=== PATIENT | female | born 1970 | race Caucasian/White ===

== ENCOUNTER 2018-06-23 01:17 | Outpatient (CLI) | payer BC, SELFPAY ==
[2018-06-23] MEDS: Omnipaque 350 MG/ML 50 ML BTL IJ (11:45)
--- NOTE | 2018-06-23 13:28 | DI.RPTCT_ITS ---
SYMPTOM/DIAGNOSIS: ABD PAIN, R10.9, RLQ PAIN, SUPRAPUBIC PAIN CT ABDOMEN AND PELVIS: The study was carried out with intravenous injection of 125 cc Omnipaque 350 and oral ingestion of dilute barium. No significant abnormality involving the lung bases is identified. The liver is enlarged. No focal abnormality is identified. The gallbladder is nondistended. There is no evidence of cholelithiasis. There is no evidence of ductal dilatation. The pancreas and spleen are intact. The kidneys and adrenals are unremarkable. There is no evidence of bowel obstruction or inflammatory change. The appendix is normal. There is significant image deterioration in the lower pelvis due to a right hip prosthesis. The bladder is incompletely distended. No gross abnormality is apparent. The patient is status post hysterectomy. There is no evidence of free air or free fluid in the intraperitoneal space. There is no evidence of an aortic aneurysm. The bony structures are intact. SUMMARY: Hepatomegaly is demonstrated. There is no evidence of an acute abdomen.
[2018-06-23] MEDS: Omnipaque 350 MG/ML 100 ML BTL IJ (13:30)
== END 2018-06-23 01:18 ==
PROVIDERS: PCP Nurse Practitioner Family; Visit Provider Nurse Practitioner Family
DX: R10.31 Right lower quadrant pain (principal); R16.0 Hepatomegaly, not elsewhere classified
CPT/HCPCS: 74177; J3490; Q9967

== ENCOUNTER 2018-06-25 15:07 | Outpatient (REF) | payer BC, SELFPAY ==
[2018-06-29 12:10] LABS: HBs Antibody, Qual Negative; HBs Antibody, Quant <3.1 mIU/mL; Hepatitis B Core Antibody Negative (NEGAT); Hepatitis B surface Ag Negative (NEGAT); Hepatitis C Ab w Rflx HCV PCR Negative (NEGAT)
== END 2018-06-25 15:08 ==
LOC: NCHCN 15:07
PROVIDERS: PCP Nurse Practitioner Family; Visit Provider Nurse Practitioner
DX: R10.9 Unspecified abdominal pain (principal); R16.1 Splenomegaly, not elsewhere classified
CPT/HCPCS: 86704; 86706; 86803; 87340

== ENCOUNTER 2018-07-05 11:41 | Outpatient (REF) | payer BC, SELFPAY ==
[2018-07-05 22:16] LABS: Abs Immature Grans 0.05 k/cumm (0.0-0.09); Absolute Basophil Count 0.03 k/cumm (0.0-0.2); Absolute Eosinophil Count 0.27 k/cumm (0.0-0.7); Absolute Lymphocyte Count 2.43 k/cumm (1.2-3.4); Absolute Monocyte Count 0.46 k/cumm (0.11-0.7); Absolute Neutrophil Count 4.34 k/cumm (1.2-6.7); Basophils % 0.4; Eosinophils % 3.6; HCT 39.2 % (36.0-46.0); HGB 12.7 g/dL (12.0-15.5); Immature Grans % 0.7; Lymphocytes % 32.1; Mean Corp. HGB Concentration 32.4 g/dL (32.0-36.0); Mean Corpuscular Hemoglobin 28.6 pg (27.0-33.0); Mean Corpuscular Volume 88.3 fL (80-95); Mean Platelet Volume 12.2 fL (8.0-11.0); Monocytes % 6.1; Neutrophils % 57.1; Platelet Count 196 x1000/uL (130-400); RBC 4.44 m/cumm (4.00-5.20); RBC Distribution Width 16.4 % (11.7-14.6); White Blood Cell Count 7.58 k/cumm (4.4-10.8)
[2018-07-05 22:26] LABS: C-Reactive Protein 0.38 mg/dL (0.0-0.3); LDH 195 U/L (81-234); TSH (W/Ref FT4) 0.69 uIU/mL (0.358-3.74)
[2018-07-05 23:44] LABS: ESR 17 MM/HR (0-20)
[2018-07-07 12:30] LABS: Rheumatoid Factor <8 IU/mL (<12.5)
[2018-07-07 13:43] LABS: Albumin 59.5 % (55.8-66.1); Total Protein 6.9 g/dl (6.3-8.2)
[2018-07-07 14:08] LABS: ANA Interpretation Negative (NEGAT)
== END 2018-07-05 11:42 ==
LOC: NCHCN 11:41
PROVIDERS: PCP Nurse Practitioner Family; Visit Provider Nurse Practitioner
DX: R50.9 Fever, unspecified (principal); M25.50 Pain in unspecified joint; R42 Dizziness and giddiness; R51 Headache
CPT/HCPCS: 85652; 83615; 84165; 84443; 85025; 86038; 86140; 86431

== ENCOUNTER 2018-08-12 10:45 | Emergency (ER) | payer BC, SELFPAY ==
[2018-08-12 10:49] VITALS: BP 160/71; PULSE 96; RESP 18; TEMP 37.2; O2SAT 96
--- NOTE | 2018-08-12 13:27 | ED.GENADUL_ITS ---
Discharge Plan Disposition Patient Disposition: HOME Condition: Stable Discharge Details Chief Complaint: EarProblem Clinical Impression: Otitis media, Otitis externa Primary Care Provider: Ivanna Way ED Provider: Reanna Castillo Home Meds and New Rx's Prescriptions: New clindamycin HCl 150 mg capsule 450 mg PO TID 7 Days Qty: 63 RF: 0 ciprofloxacin-hydrocortisone [Cipro HC] 0.2-1 % drops,suspension 3 drp OT BID 7 Days Qty: 10 RF: 0 Continue clonidine HCl 0.1 MG tablet 0.1 mg PO DAILY RF: 0 omeprazole 20 MG capsule,delayed release(DR/EC) 20 mg PO DAILY RF: 0 fluticasone [Flonase Allergy Relief] 9.9 ML spray,suspension 9.9 ml NS DAILY RF: 0 PROVENTIL HFA 18 GM HFA.AER.AD 2 puff Inhalation Q4H PRN RF: 0 clonazepam 1 MG tablet 1 mg PO BID RF: 0 telmisartan [Micardis] 40 MG tablet 40 mg PO DAILY RF: 0 gabapentin 300 MG capsule 1,200 mg PO HS RF: 0 albuterol sulfate 8.5 GM HFA aerosol inhaler 2 puff Inhalation DAILY PRNRF: 0 aripiprazole [Abilify] 30 MG tablet 30 mg PO DAILY RF: 0 omeprazole 20 MG capsule,delayed release(DR/EC) 20 mg PO HS RF: 0 beclomethasone dipropionate [Qvar] 120 PUFF aerosol 1 puff Inhalation BID RF: 0 acetaminophen [Tylenol Arthritis Pain] 650 MG tablet extended release 1,300 mg PO TID RF: 0 baclofen 10 MG tablet 10 mg PO PRN PRNRF: 0 nystatin 15 GM cream 1 applic Topical BID PRN PRNRF: 0 furosemide 20 MG tablet 0.5 tab PO DAILY RF: 0 fenofibrate 160 MG tablet 160 mg PO DAILY RF: 0 fluticasone [Flovent HFA] 120 PUFF/INH HFA aerosol inhaler 2 puff Inhalation BID RF: 0 metformin 500 MG tablet extended release 24hr 500 mg PO DAILY RF: 0 nitroglycerin 0.4 MG tablet, sublingual 0.4 mg Sublingual Q5 MIN PRN X3 PRNQty: 1 RF: 0 atorvastatin 40 MG tablet 40 mg PO HS Qty: 30 RF: 0 naproxen 375 mg Tablet 1 tab PO BID RF: 0 Discharge Instructions Instructions: Otitis Externa (ED), Otitis Media (ED) Additional Instructions: Take the antibiotics as directed until finished. Alternate Tylenol and Motrin as needed and directed for pain. Follow-up with your scheduled appointment with ENT Dr. Boone next week. Return to the emergency department any worsening or new concerning symptoms. Discharge Data Discharge Date/Time-TO BE ENTERED AT DEPARTURE: 08/12/18 14:05 Discharge Physician: Reanna Castillo Medical Decision Making 48yo F w/ a h/o diabetes, hypertension, hyperlipidemia, anxiety who presents with left ear pain for 4 weeks. Has seen her PCP and dentist and not given a diagnosis and told she had normal x-rays and exam. She called her dentist office yesterday and was prescribed chlorhexidine mouthwash over the phone. She admits to pain within the ear and outside the ear. She denies known fever or difficulty swallowing or neck pain. Patient was seen here last year for similar left ear pain and was diagnosed with otitis externa. Due to her history of diabetes, there had been a concern for mastoiditis but the CT imaging was negative for this. Today patient is afebrile and appears nontoxic. She does appear uncomfortable. She states she cannot take narcotics due to nausea and vomiting. She states Tylenol and Motrin usually work well for her pain. Her left TM appears mildly dull, bulging, mildly erythematous and with a mild effusion. She also endorses itching in her left ear canal. There is some pain to palpation of the L tragus and when pulling on the L auricle. She has no tenderness palpation of her left mastoid. There is no submandibular swelling or lymphadenopathy. Normal R ear exam. I explained to patient that she may have an otitis media and externa. She states she had been on Augmentin 4 weeks ago for a breast abscess. Her chart notes an allergy to amoxicillin. Will start clindamycin p.o. and Cipro HC otic drops. Patient does have an appointment with ENT Dr. Boone in 1 week. She is instructed to keep this appointment for follow-up and return immediately to the emergency department with any worsening or new concerning symptoms. HPI General Mode of arrival: ambulatory . Date/Time Provider Initiated Documentation: 08/12/18 10:57 . Limitations to Documentation: no limitations . Information obtained by: patient . HPI Narrative: 48-year-old female with a history of diabetes, hypertension, hyperlipidemia, anxiety who presents with left ear pain for 4 weeks. She states the pain is mainly deep within the ear . Has seen her PCP and dentist and not given a diagnosis and told she had normal dental x-rays and exam. She called her dentist office yesterday and was prescribed chlorhexidine mouthwash over the phone. She admits to pain within the ear and outside the ear. She denies known fever or difficulty swallowing or neck pain. She states Tylenol and Motrin usually work for her pain but have not helped for this. She states he cannot take narcotics due to nausea. She states she was on Augmentin for a boil on her L breast a few weeks ago that she states is now resolved. Past medical history: Diabetes, hypertension, hyperlipidemia, kidney stones, ovarian mass, panic attacks Surgical history: , hip replacement, hysterectomy, tubal ligation, right wrist surgery, ovarian mass resection Social history: Smokes tobacco, denies alcohol or drugs Medications: See list Allergies: Oxycodone, amoxicillin, latex, prozac PCP: Ivanna Way Related Data Home Medications Medication Instructions Recorded Confirmed albuterol sulfate 2 puff INHALATION DAILY PRN 05/01/15 08/12/18 aripiprazole [Abilify] 30 mg PO DAILY 05/01/15 08/12/18 clonazepam 1 mg PO BID 05/01/15 08/12/18 gabapentin 1,200 mg PO HS 05/01/15 08/12/18 telmisartan [Micardis] 40 mg PO DAILY 05/01/15 08/12/18 omeprazole 20 mg PO HS 03/07/17 08/12/18 clonidine HCl 0.1 mg PO DAILY tab-cap 12/01/17 08/12/18 beclomethasone dipropionate [Qvar] 1 puff INHALATION BID 12/12/17 08/12/18 acetaminophen [Tylenol Arthritis 1,300 mg PO TID 05/21/18 08/12/18 Pain] baclofen 10 mg PO PRN PRN 05/21/18 08/12/18 fenofibrate 160 mg PO DAILY 05/21/18 08/12/18 fluticasone [Flovent HFA] 2 puff INHALATION BID 05/21/18 08/12/18 furosemide 0.5 tab PO DAILY 05/21/18 08/12/18 metformin 500 mg PO DAILY 05/21/18 08/12/18 nystatin 1 applic TOPICAL BID PRN PRN 05/21/18 08/12/18 atorvastatin 40 mg PO HS #30 tablet 05/22/18 08/12/18 nitroglycerin 0.4 mg SUBLINGUAL Q5 MIN PRN X3 05/22/18 08/12/18 PRN #1 tab.subl Proventil Hfa 2 puff INHALATION Q4H PRN inhaler 07/14/18 08/12/18 fluticasone [Flonase Allergy 9.9 ml NS DAILY 07/14/18 08/12/18 Relief] omeprazole 20 mg PO DAILY tab-cap 07/14/18 08/12/18 ciprofloxacin-hydrocortisone 3 drp OT BID 7 Days #10 ml 08/12/18 [Cipro HC] clindamycin HCl 450 mg PO TID 7 Days #63 cap 08/12/18 naproxen 1 tab PO BID 08/12/18 08/12/18 Previous Rx's Medication Instructions Recorded atorvastatin 40 mg PO HS #30 tablet 05/22/18 nitroglycerin 0.4 mg SUBLINGUAL Q5 MIN PRN X3 05/22/18 PRN #1 tab.subl ciprofloxacin-hydrocortisone 3 drp OT BID 7 Days #10 ml 08/12/18 [Cipro HC] clindamycin HCl 450 mg PO TID 7 Days #63 cap 08/12/18 Allergies Allergy/AdvReac Type Severity Reaction Status Date / Time fluoxetine HCl [From Prozac] Allergy Intermediate Unverified 08/12/18 10:51 oxycodone HCl [From Percocet] AdvReac Severe vomiiting Unverified 08/12/18 10:51 amoxicillin AdvReac Intermediate thrush Unverified 08/12/18 10:51 latex AdvReac Unknown Unverified 08/12/18 10:51 adhesive tape AdvReac Unverified 08/12/18 10:51 STRAWBERRIES Allergy Severe Uncoded 08/12/18 10:51 ALL RX PAINKILLERS AdvReac Severe Nausea Uncoded 08/12/18 10:51 General Stated Complaint: EarProblem CAMPBELL: 4 Review of Systems Review of Systems All systems reviewed & are unremarkable except as noted in HPI and below Constitutional Denies headache(s) ENT Denies dysphagia, Denies ear discharge, Reports otalgia, Denies headache(s), Denies neck pain, Denies throat swelling and Denies tongue swelling Cardiovascular Denies chest pain and Denies dyspnea Respiratory Denies dyspnea Gastrointestinal Denies dysphagia Musculoskeletal Denies neck pain Neurologic Denies headache(s) Allergic/Immunologic Denies throat swelling and Denies tongue swelling PFS Social History Smoking/Tobacco Use Status: Current every day Exam Const General: cooperative, healthy appearing, no acute distress and other (Patient wears sunglasses while in ED room which is her usually her baseline on previous ED visits) Orientation: alert and awake HENMT Head: normal to inspection Ears: hearing grossly normal bilaterally, TM normal on the right, left TM abnormal (Left TM dull with mild bulging and very minimal erythema. No foreign body or discharge.), mastoids normal, no periauricular adenopathy and external ear abnormal (Pain to palpation of left tragus and when pulling on left auricle. Right external ear normal to inspection and palpation.) General nose exam: external nose normal Face and sinus: normal facial exam Mouth: oral mucosae normal Teeth and gingiva: dentition normal Throat: posterior oropharynx normal Eyes General: appearance normal, both eyes and all related structures Eyelids: eyelids normal EOM: EOM intact bilaterally Neck Neck: normal visual inspection, no meningeal signs, trachea midline, supple, no anterior neck swelling and No submandibular swelling Lymphatic: no lymphadenopathy noted Chest Chest: normal inspection of the chest Resp Effort & Inspection: normal respiratory effort and able to speak in complete sentences Auscultation: clear to auscultation bilaterally Cardio Rate: regular rate Rhythm: regular rhythm GI Inspection: normal to inspection Neuro General: alert and awake Cognition: normal cognition Speech: speech normal Gait: normal gait Extrem General: full ROM Psych Appearance: grossly normal Mental Status: mental status grossly normal Speech and Movement: speech and movement normal Affect: normal affect Thought Process: normal Course Vital Signs Temperature 99.0 F 08/12/18 10:49 Pulse 96 H 08/12/18 10:49 Respiratory Rate 18 08/12/18 10:49 Blood Pressure 160/71 H 08/12/18 10:49 Pulse Oximetry 96 08/12/18 10:49 Temperature 99.0 F 08/12/18 10:49 Temperature Source Temporal Artery Scan 08/12/18 10:49 Pulse 96 H 08/12/18 10:49 Respiratory Rate 18 08/12/18 10:49 Respiratory Effort 08/12/18 10:53 Blood Pressure 160/71 H 08/12/18 10:49 Pulse Oximetry 96 08/12/18 10:49 Pain Level 8 08/12/18 10:49
[2018-08-12 14:05] VITALS: BP 160/71; PULSE 96; RESP 18; TEMP 37.2; O2SAT 96
== END 2018-08-12 14:05 | disposition home or self-care (01) ==
PROVIDERS: Emergency Provider Physician Assistant; PCP Nurse Practitioner Family
DX: H66.92 Otitis media, unspecified, left ear (principal); H60.502 Unspecified acute noninfective otitis externa, left ear; E11.9 Type 2 diabetes mellitus without complications; Z79.84 Long term (current) use of oral hypoglycemic drugs; I10 Essential (primary) hypertension
CPT/HCPCS: 99283

== ENCOUNTER 2018-08-16 10:54 | Outpatient (CLI) | payer BC, SELFPAY ==
--- NOTE | 2018-08-16 10:39 | DI.RAD_ITS ---
SYMPTOM/DIAGNOSIS: LEFT HIP PAIN LEFT HIP: 08/16 Three views were obtained. There is a total right hip joint replacement in position. On the left there may be slight narrowing of the cartilaginous joint space of the hip. Mild hypertrophic spurring of the acetabulum noted. There may be subchondral cyst formation of acetabulum and/or femoral head. The femoral head also has some question of geographic areas of sclerosis, the findings could represent chronic or sub-acute avascular necrosis. CONCLUSION: Suspected chronic or subacute AVN of left femoral head. Outside MRI study imported from 02/16/18 also shows findings raising the possibility of AVN.
== END 2018-08-16 11:14 ==
PROVIDERS: PCP Nurse Practitioner Family; Visit Provider Physician Assistant
DX: M25.552 Pain in left hip (principal); M87.052 Idiopathic aseptic necrosis of left femur; Z96.641 Presence of right artificial hip joint
CPT/HCPCS: 73502

== ENCOUNTER 2018-08-24 01:20 | Outpatient (CLI) | payer BC, SELFPAY ==
--- NOTE | 2018-08-24 10:00 | DI.CT_ITS ---
SYMPTOM/DIAGNOSIS: OTALGIA, LT EAR, H92.[address]: Multiple contiguous axial images of the face were obtained. Comparison CT head is 02/14/18. The frontal sinuses are clear. The ethmoid air cells are clear. The sphenoid sinuses are clear. There is near complete opacification of the right maxillary sinus. The left maxillary sinus is clear. The mastoid air cells are well pneumatized. The middle ear ossicles are unremarkable as are the cochlea and semi circular canals. The internal auditory canals are grossly unremarkable and symmetric. The external auditory canals appear grossly unremarkable. The orbits and retro-orbital soft tissues are unremarkable. The visualized nasopharynx, oropharynx, hypopharynx and visualized portions of the larynx are unremarkable. The visualized portions of the parotid and submandibular glands are unremarkable. No significant cervical adenopathy is appreciated. There is artifact from the patient's dental amalgam. The bones are intact. IMPRESSION: 1. Marked right maxillary sinusitis. 2. No evidence of mastoiditis. 3. No evidence of a soft tissue mass or abnormal fluid collection.
== END 2018-08-24 01:40 ==
PROVIDERS: PCP Nurse Practitioner Family; Visit Provider Otolaryngology
DX: H92.02 Otalgia, left ear (principal); J32.0 Chronic maxillary sinusitis
CPT/HCPCS: 70486

== ENCOUNTER 2018-09-27 14:29 | Outpatient (REF) | payer BC, SELFPAY ==
[2018-09-27 21:27] LABS: Abs Immature Grans 0.05 k/cumm (0.0-0.09); Absolute Basophil Count 0.04 k/cumm (0.0-0.2); Absolute Eosinophil Count 0.14 k/cumm (0.0-0.7); Absolute Lymphocyte Count 2.87 k/cumm (1.2-3.4); Absolute Monocyte Count 0.48 k/cumm (0.11-0.7); Absolute Neutrophil Count 4.87 k/cumm (1.2-6.7); Basophils % 0.5; Eosinophils % 1.7; HCT 41.4 % (36.0-46.0); HGB 13.2 g/dL (12.0-15.5); Immature Grans % 0.6; Mean Corp. HGB Concentration 31.9 g/dL (32.0-36.0); Mean Corpuscular Hemoglobin 27.2 pg (27.0-33.0); Mean Corpuscular Volume 85.2 fL (80-95); Mean Platelet Volume 11.7 fL (8.0-11.0); Monocytes % 5.7; Neutrophils % 57.5; Platelet Count 212 x1000/uL (130-400); RBC 4.86 m/cumm (4.00-5.20); White Blood Cell Count 8.45 k/cumm (4.4-10.8)
[2018-09-27 21:36] LABS: ALT 33 U/L (12-78); AST 20 U/L (15-37); Albumin 4.2 g/dL (3.4-5.0); Alkaline Phosphatase 92 U/L (46-116); Anion Gap 11.5 mmol/L (3-11); BUN 17 mg/dL (7-18); Bilirubin, Total 0.6 mg/dL (0.2-1.0); CO2 27.5 mmol/L (21.0-32.0); CREATININE 0.78 mg/dL (0.55-1.02); Calcium 10.1 mg/dL (8.5-10.1); Chloride 103 mmol/L (98-107); Glucose 86 mg/dL (70-100); Sodium 142 mmol/L (136-145); Total Protein 7.6 g/dL (6.4-8.2)
== END 2018-09-27 14:49 ==
LOC: NCHCN 14:29
PROVIDERS: PCP Nurse Practitioner Family; Visit Provider Nurse Practitioner Family
DX: M25.552 Pain in left hip (principal)
CPT/HCPCS: 80053; 85025

== ENCOUNTER 2018-09-29 07:47 | Outpatient (CLI) | payer BC, SELFPAY ==
[2018-09-29 09:33] LABS: HCT 40.6 % (36.0-46.0); HGB 13.1 g/dL (12.0-15.5); Mean Corp. HGB Concentration 32.3 g/dL (32.0-36.0); Mean Corpuscular Hemoglobin 27.5 pg (27.0-33.0); Mean Corpuscular Volume 85.3 fL (80-95); Mean Platelet Volume 10.4 fL (8.0-11.0); Platelet Count 207 x1000/uL (130-400); RBC 4.76 m/cumm (4.00-5.20); RBC Distribution Width 16.1 % (11.7-14.6)
[2018-09-29 09:48] LABS: Hemoglobin A1C 6.8 % (4.5-6.2)
[2018-09-29 10:09] LABS: Anion Gap 12.6 mmol/L (3-11); BUN 18 mg/dL (7-18); CO2 24.4 mmol/L (21.0-32.0); CREATININE 0.76 mg/dL (0.55-1.02); Calcium 9.7 mg/dL (8.5-10.1); Chloride 105 mmol/L (98-107); Glucose 126 mg/dL (70-100); Potassium 4.3 mmol/L (3.5-5.1); Sodium 142 mmol/L (136-145)
== END 2018-09-29 08:07 ==
PROVIDERS: PCP Nurse Practitioner Family; Visit Provider Student in an Organized Health Care Education/Training Program
DX: M87.052 Idiopathic aseptic necrosis of left femur (principal); M25.552 Pain in left hip; I10 Essential (primary) hypertension; J44.9 Chronic obstructive pulmonary disease, unspecified; K21.9 Gastro-esophageal reflux disease without esophagitis; Z01.818 Encounter for other preprocedural examination
CPT/HCPCS: 36415; 80048; 85027; 86850; 86900; 86901; 83036

== ENCOUNTER 2018-10-05 05:37 | Inpatient (IN) | payer BC, SELFPAY ==
[2018-09-29 08:13] VITALS: BP 144/83; PULSE 86; RESP 18; TEMP 37.5; O2SAT 95
--- NOTE | 2018-09-29 13:45 | PDOC.CMPRO ---
- If Service Date Differs Date of service: 09/29/18 Time of Service: 13:45 Care Management Progress Note CM met with Lina at the request of Day Surgery. Lina will be having a total knee surgery with Dr. Tineo on 10/05/18. She resides with her father in [place] and reports that he will be able to assist her during her recovery. Lina does not work and is independent with her ADLs and transportation. Lina owns three walkers so will not be needing DME upon discharge. She has 10 steps up to her home. Lina currently has OT assisting her with showering 1x/week and is independent with her other ADLs and transportation. CM will offer support to patient and care team regarding discharge planning and disposition when she arrives on the MS floor.
[2018-10-05] VITALS (15 sets, daily range): BP systolic 86–121; BP diastolic 30–67; PULSE 52–89; RESP 16–22; TEMP 36.4–37.1; O2SAT 92–99
[2018-10-05] MEDS: Acetaminophen 500 MG TAB 1000 MG PO ×3 (06:34→20:43)
[2018-10-05] MEDS: Celecoxib 200 MG CAP 400 MG PO (06:34)
[2018-10-05] MEDS: Lactated Ringers 1,000 ML 80 ML IV ×2 (06:52→12:09)
--- NOTE | 2018-10-05 07:15 | DI.RAD_ITS ---
SYMPTOM/DIAGNOSIS: S/P LEFT ANTERIOR TOTAL HIP ARTHROPLASTY LEFT HIP IN OR: Fluoroscopy Time: 47 sec Intraoperative images demonstrate cerclage wiring of the proximal left femur in a patient who is status post THR. As visualized, the prosthesis in good position, surrounding bone well maintained, cerclage wires in place. PORTABLE PELVIS: The frontal portable image includes the lower pelvis and hips. The patient is status post left hip replacement. The prosthesis is in excellent position. Cerclage wires in place in the proximal femur on this frontal projection.
[2018-10-05] MEDS: Bupivacaine 0.25% Pres-Free 30 ML VIAL (10:39)
[2018-10-05] MEDS: Ketorolac 30 MG/ML VIAL (10:39)
[2018-10-05] MEDS: Normal Saline 20 ML VIAL (10:39)
--- NOTE | 2018-10-05 14:27 | PT.INIE ---
Date of service: 10/05/18 Time of Service: 14:25 PT Notes Inpatient Physical Therapy Evaluation Date: 10/05/18 Referring Doctor: Diallo Tineo PT Orders: PT CONSULT: s/p L anterior NORBERTO Precautions: WBAT L LE Patient Profile/Admitting Diagnosis: Pt is a 48yr old female s/p left anterior total hip arthroplasty by Dr. 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 Baseline mobility 4WW or cane in home setting, FWW or 4WW in community. Independent with ADLS Equipment Owned/DME: cane, 4WW, FWW Subjective: Pt lying in bed wearing prescription sunglasses, alert, agreeable to PT Consult. Family in room visiting. Objective: General Observation: L UE IV, tripathi catheter, CLAUS hose, SCD's Mental Status: A& O x3 Pain: 6/10 pain left hip, RN notified, ice pack applied to left hip Bed Mobility/Transfers: Supine-sit: HOB 30 degrees, independent Sit-stand: SBA with FWW Stand-sit: SBA Sit-supine: HOB Flat, independent Gait: CGA with FWW 15ftx2 in room, step through gait pattern. Pt returned to bed after gait session. Therex: Pt has issued pre-op packet and home exercise program. Initiated. Balance: Static Sitting: normal Dynamic Sitting: normal Static Standing: fair Dynamic Standing: fair Special Tests: Mobility Limitations Standardized Measure [facility] AM-PAC 6 clicks Basic Mobility Inpatient Short Form: Raw Score: 18 Standardized Score: 43.63 CMS Score: 46.58% CMS Modifier: CK Informed Consent/Education: Patient instructed in purpose of PT consult and plan of care. Assessment: Pt is a 48yr old female s/p left anterior total hip arthroplasty by Dr. 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 Patient presents with the following impairment level findings: decreased strength left hip post op, decreased strength with standing transfers and gait mobility, decreased static and dynamic standing balance requiring use of FWW for gait stability post operatively. Pt was able to mobilize in room with FWW this afternoon, will need to be able to do 10 steps to return to home setting, will assess stairs in am. Impairments are contributing to the following functional limitations: AMPAC score CMS Score: 46.58% Patient is assessed as a Moderate [id number] complexity based on the following: History: see above Examination: see above Presentation: evolving Decision Making: AMPAC score CMS Score: 46.58% Goals: Goals X1 week 1. Supine-Sit : independent 2. Sit-Supine : independent 3. Sit-Stand : supervision with FWW 4. Stand-Sit : supervision 5. Bed-Chair : SBA with FWW 6. Chair-Bed : SBA with FWW 7. Gait : SBA with FWW 75ft WBAT L LE 8. Stairs : up/down 10 steps with railing, SBA WBAT L LE 9. Independent with home exercise program Plan of Care/Treatment Plan: 1-2x/day, 7 days/week x 1 week. Plan of care has been reviewed with the FOUNDER AND PRESIDENT providing the service under Physical Therapy direction. Initiate Physical Therapy intervention for strengthening, bed mobility, transfers, gait, stairs, balance training, use of assistive device. DISCHARGE RECOMMENDATIONS: Home, pt has all DME TREATMENT CODE/TIME: 24 min IE 1425 G Codes in the area mobility of walking and moving around: current status [id number]; projected status GP [id number]. Discharge status (if discharging) GP [id number] CK based on AMPAC score CMS Score: 46.58% Jennifer Forte PT
[2018-10-05] MEDS: clonazePAM 1 MG TAB PO ×2 (14:40→20:40)
--- NOTE | 2018-10-05 14:41 | IN_ITS ---
Date of service: 10/05/18 Time of Service: 14:25 PT Notes Inpatient Physical Therapy Evaluation Date: 10/05/18 Referring Doctor: Diallo Tineo PT Orders: PT CONSULT: s/p L anterior NORBERTO Precautions: WBAT L LE Patient Profile/Admitting Diagnosis: Pt is a 48yr old female s/p left anterior total hip arthroplasty by Dr. 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 Baseline mobility 4WW or cane in home setting, FWW or 4WW in community. Independent with ADLS Equipment Owned/DME: cane, 4WW, FWW Subjective: Pt lying in bed wearing prescription sunglasses, alert, agreeable to PT Consult. Family in room visiting. Objective: General Observation: L UE IV, tripathi catheter, CLAUS hose, SCD's Mental Status: A& O x3 Pain: 6/10 pain left hip, RN notified, ice pack applied to left hip Bed Mobility/Transfers: Supine-sit: HOB 30 degrees, independent Sit-stand: SBA with FWW Stand-sit: SBA Sit-supine: HOB Flat, independent Gait: CGA with FWW 15ftx2 in room, step through gait pattern. Pt returned to bed after gait session. Therex: Pt has issued pre-op packet and home exercise program. Initiated. Balance: Static Sitting: normal Dynamic Sitting: normal Static Standing: fair Dynamic Standing: fair Special Tests: Mobility Limitations Standardized Measure [facility] AM-PAC 6 clicks Basic Mobility Inpatient Short Form: Raw Score: 18 Standardized Score: 43.63 CMS Score: 46.58% CMS Modifier: CK Informed Consent/Education: Patient instructed in purpose of PT consult and plan of care. Assessment: Pt is a 48yr old female s/p left anterior total hip arthroplasty by Dr. 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 Patient presents with the following impairment level findings: decreased strength left hip post op, decreased strength with standing transfers and gait mobility, decreased static and dynamic standing balance requiring use of FWW for gait stability post operatively. Pt was able to mobilize in room with FWW this afternoon, will need to be able to do 10 steps to return to home setting, will assess stairs in am. Impairments are contributing to the following functional limitations: AMPAC score CMS Score: 46.58% Patient is assessed as a Moderate [id number] complexity based on the following: History: see above Examination: see above Presentation: evolving Decision Making: AMPAC score CMS Score: 46.58% Goals: Goals X1 week 1. Supine-Sit : independent 2. Sit-Supine : independent 3. Sit-Stand : supervision with FWW 4. Stand-Sit : supervision 5. Bed-Chair : SBA with FWW 6. Chair-Bed : SBA with FWW 7. Gait : SBA with FWW 75ft WBAT L LE 8. Stairs : up/down 10 steps with railing, SBA WBAT L LE 9. Independent with home exercise program Plan of Care/Treatment Plan: 1-2x/day, 7 days/week x 1 week. Plan of care has been reviewed with the GROCERY CHECKER providing the service under Physical Therapy direction. Initiate Physical Therapy intervention for strengthening, bed mobility, transfers, gait, stairs, balance training, use of assistive device. DISCHARGE RECOMMENDATIONS: Home, pt has all DME TREATMENT CODE/TIME: 24 min IE 1425 G Codes in the area mobility of walking and moving around: current status [id number]; projected status GP [id number]. Discharge status (if discharging) GP [id number] CK based on AMPAC score CMS Score: 46.58% Jennifer Forte PT
[2018-10-05] MEDS: HYDROmorphone 2 MG TAB PO ×2 (17:38→20:43)
[2018-10-05] MEDS: Ondansetron 4 MG/2 ML VIAL IVP (17:42)
--- NOTE | 2018-10-05 18:13 | W.PM.OP ---
Date of service: 10/05/18 Time of Service: 12:13 Operative Note DATE OF PROCEDURE: 10/05/18 PRE-OP DIAGNOSIS: Left Hip avascular necrosis POST-OP DIAGNOSIS: other (Left hip avascular necrosis with intraoperative proximal femur fracture) PROCEDURE: Left Anterior Total Hip Arthroplasty with cerclage wire fixation of proximal femur fracture SURGEON: Diallo Tineo OCC THERAPY ASST: Srini Saleh ANESTHESIA: spinal ESTIMATED BLOOD LOSS: 300 PATHOLOGY: none sent COMPLICATIONS: Other (During the initial broach of the femur while trying to remove the broach, maneuvering around the belly, a small area of the proximal femur broke anterior to the lesser trochanter approximately 1-1/2 cm wide angling down to a triangle approximately 3 cm in total length.) Patient was transported to: PACU Patient's condition: stable Implants: 1. Depuy [place] Acetabular Component, 48 mm 2. Depuy Acetabular Liner, 48x32 mm 3. Depuy Corail standard Collared femoral Stem, Size 9 4. Depuy Altrx Ceramic Femoral Head, Size 32+1mm Indications: I have seen Lina in clinic for symptoms of hip avascular necrosis, confirmed with radiographic findings. She has exhausted nonoperative methods and was having significant limitations in daily function and desired better function and less pain. I discussed the technical details of a hip replacement. I explained the risks of the procedure to include, but not limited to, bleeding, infection, pain, stiffness, fracture, damage to nerves and vessels, damage to muscles and tendons, loosening, instability, leg length inequality, need for repeat procedure, blood clot and cardiopulmonary demise. Despite these risks, Lina elected to proceed. Findings: There was avascular necrosis of the superior portion of the femoral head, as seen on the MRI. This area was loose. The bone quality in general is quite poor and her bone is very small compared to her overall size. Exposure and manipulation of the femur was challenging given her size and during the initial broach a small portion of the anterior medial femur broke. This was reduced and secured with cerclage cables and a total hip was implanted. Procedure Description: Lina was greeted in the preoperative holding area where the correct side was identified and marked. The consent was reviewed with the patient and signed. The history and physical was updated. All questions were answered. She was taken back to the operating room. A spinal anesthestic was then administered. The patient was placed into the supine position on the operating room table. The patient was then positioned onto the ARCH table. Both feet were wrapped with Webrill cotton wrap along with Coban. The feet were placed in specialized boots for the ARCH table, well seated within the boot and secured. SCDs were applied. The patient was then slid down onto a peroneal post and the nonoperative leg was secured in a leg sun attached to the table. The operative side was placed into the ARCH table attachment and bed height and positioning was secured. A preoperative AP pelvis was obtained to serve as a reference for determining leg lengths. Prophylactic antibiotics in the form of cefazolin were administered. 1g of Tranxemic Acid was given intravenously within 30 minutes of incision. The left leg was then prepped with Chloraprep and draped in a standard fashion with a large shower-curtain type drape with Iodine impregnated skin protection. A timeout to confirm correct identity, side and site, procedure, allergies, anesthesia, and medical concerns was performed. An obliquely oriented incision was made starting lateral to the ASIS and running distal over the Tensor Fascia Daysi (TFL) muscle belly toward the fibular head, approximately 10cm. The skin and soft tissue was dissected sharply, through Hanh?s fascia, and to the fascia of the TFL. Initial dissection drifted laterally as her TF L muscle fascia was much more medial than I would appreciate on a typical patient. The fascia and superior border of the IT band was identified, the fascia was incised with a new knife just above any perforators from the IT band. The TFL muscle belly was bluntly dissected away from the fascia and moved laterally. The fat between TFL and rectus was identified to ensure the dissection was not within the TFL. Blunt dissection created space between abductors and the capsule and retractor was placed over the lateral femoral neck. The fibers of the rectus femoris tendon were identified and these were freed from the anterior capsule. A second cobra retractor was placed around the medial femoral neck. The TFL was further retracted laterally to show the deep fascia. Careful dissection through this layer identified three main crossing vessels of the lateral femoral circumflex. These were cauterized in multiple locations and then cut without any noticeable bleeding. The TFL was further released bluntly from the deep fascia to expose anterior hip capsule and fat the Rad orthopaedic retractor was then placed beneath the TFL and against sartorius and medial soft tissues to protect and retract the soft tissues. A T-capsulotomy was then performed starting at the superior lateral acetabulum and moving distally to the intertrochanteric ridge. These capsular flaps were tagged with a No. 1 Ethibond and elevated from within. The capsular flaps were released to the shoulder of the lateral neck and to the lesser trochanter to give excellent visualization of the proximal femur. A neck osteotomy was performed using an oscillating saw based on preoperative templates. This cut started in the shoulder and of the lateral neck and exited medially. The saw was at all times directed medially to avoid injury to the greater trochanter. 6cm of traction was applied to the leg and the osteotomy opened. The femoral head was removed with a corkscrew, making sure to protect the TFL on its exit. There were obvious signs of avascular necrosis with a loose piece of cartilage and subchondral bone seen on the superior aspect. This was then measured on the back table to determing the starting reamer size. Portions of the rectus obscuring visualization were minimally elevated off the superior acetabulum. An anterior retractor was placed over the anterior wall between capsule and labrum. A posterior retractor was placed similarly. This provided excellent visualization. The contents of the cotyloid fossa were removed with electrocautery and the labrum was removed with a knife. Acetabular reaming began with a 43 mm reamer. This first reaming was directed anterior to posterior and medial to get down to the true floor. This was inspected and reamed until the true floor was reached. I then reamed sequentially up to a 48 mm reamer where good fit was obtained. The larger reamers were oriented based on anatomical reference of the anterior and lateral ovalles to ensure proper abduction and anteversion. Positioning and size was confirmed with the fluoroscopy. A 48 mm Depuy [place] acetabular component was selected. The deep tissues were irrigated. The acetabular component was then impacted in a position of about 40-45 degrees of abduction and 15-20 degrees of anteversion, using the patient?s anatomy as the ultimate landmark. Fluoroscopy was used to confirm this. There was excellent analysis analyst of the acetabular component and the inserting handle was removed. The acetabular liner, Depuy 48x32 mm polyethylene liner, was inserted and lined up with the tines of the acetabular component. There was no soft tissue interposition. The liner was then impacted into position and confirmed to be well-seated. A portion of the violeta-articular cocktail was then injected around the acetabulum into the capsule and periosteum. This cocktail consisted of 50cc of 0.25% Bupivicaine and 20cc of Exparel, expanded to a total of 120cc. Traction was released from the femur. The leg was rotated to 120 degrees. Any remaining medial capsule was released until the lesser trochanter was easily palpable. A Abdi retractor was placed medially. The lateral capsule was further released into the shoulder to allow access to the greater trochanter. A Abdi retractor was placed over the greater trochanter which allowed the trochanter to flip in front of the capsule for excellent exposure. The leg was brought down into maximal extension and 20 degrees of adduction while ensuring there was no impingement on the acetabulum. Any remnant capsule within the trochanter was released. Piriformis and obturator externis were identified and protected. There was excellent access to the proximal femur. The lateral neck remnant was removed with a rongeur. Exposure was challenging given the depth of the wound. I was able to get good mobilization of the femur but I still had to combat her large amount of soft tissue both medially and superiorly with the belly. A blunt canal probe was used to identify the canal and trajectory for later broaching. A box osteotome initiated the broach course. A small curved rasp and a curved curette were used to work laterally. Broaching then began with a size 8 Corail broach. This was inserted manually around the trochanter and into the canal before mallet blows. The broach was seated to a few millimeters below the cut level based on the neck cut and the preoperative template. While removing this initial broach there is an obvious crack seen on the anterior medial aspect of the proximal femur. The broach was fully removed and the graft was inspected which showed a crack of this aspect of the femur most likely due to leaving on the broach at trying to clear her pannus on exit. This fracture piece was about 1/2 cm in total and was triangular in nature with the apex extending to about the level of the base of the lesser trochanter. With this intraoperative fracture recognized further x-rays were used to identify. It did not involve the posterior medial calcar. Given these findings, I decided to proceed with cerclage cabling of the fracture. Dissection of the proximal vastus was performed to expose the proximal femur. A Synthes cerclage cable was placed first just below the level of the lesser trochanter. This was placed around the femur and then secured it provisionally tightened at 50 kg. A second cerclage cables placed above the lesser trochanter which reduce the fracture piece nearly anatomic. This was also secured and temporarily held with tension. This was solid and allowed us to manipulate the femur without any notable movement. X-ray was used to confirm appropriate positioning of the cerclage cables. Sequential broaching was then continued until a tight fit was obtained with good rotational control of the femur. The proximal femur was then reamed down to a level just above the lesser trochanter as based on the preoperative template and the current level of the broach. Through this entire process there was no motion or movement of this proximal femur fractured piece. A trial standard neck was inserted along with a +1 trial head. The leg was brought out of extension and adduction and then reduced with traction and internal rotation. It reduced with around 2 cm of traction. The leg was stable anteriorly in a position of 30 degrees of extension and 90 degrees of external rotation. Fluoroscopy was used to ensure there was no fracture and the stem was seated well. Leg lengths were checked with an AP pelvis and pelvic reference points. It looked like I may have increased her leg length by a few millimeters, but given the fracture and is positioning being stable I left it as is. The leg was brought back into extension, external rotation and adduction. The periosteum and surrounding tissue was injected with remaining portion of the violeta-articular cocktail. The proximal femur was irrigated as well as the deep tissues. The Depuy Cor[place] standard collared stem, size 9, was then manually inserted into the proximal femur making sure to control rotation. It was then malleted into position with light blows, giving breaks to allow bone expansion and decrease risk of fracture. The selected Depuy Altrx Ceramic Head, size 32+1 mm, was then placed onto the clean and dry trunnion and secured with impaction onto the tapered fit. The leg was brought back out of extension and adduction and reduced with traction and internal rotation. Stability was confirmed with no shuck at 90 degrees of external rotation and 30 degrees of extension. No impingement through range of motion arc. Final x-ray images were obtained with fluoroscopy. The deep tissues were thoroughly irrigated with a pulse lavage. The second dose of TXA 1g was administered intravenously. The capsule was then reapproximated with the previously placed Ethibond sutures. The TFL fascia was finally closed with a No. 2 Stratafix, barbed suture. Deep tissues were then reapproximated with 0 Vicryl and a running 2-0 Vicryl. The skin was closed with a running 4-0 Monocryl in a subcuticular fashion. This was reinforced with skin glue. A Mepilex silver dressing was applied. At the end of the case, all counts were correct. Lina was transferred to the hospital bed without difficulty and suffering a proximal femur fracture as documented above. Lina has a good prognosis although the initial course will be altered due to the fracture. There still is a significant risk of further displacement of this component requiring additional surgery. However, I feel confident about the fixation with a cerclage cable. Physical therapy will start today but she will be protected weightbearing until further follow-up. Aspirin 81mg BID will be used for DVT prophylaxis.
[2018-10-05] MEDS: HYDROmorphone 2 MG/ML VIAL 0.5 MG IVP (18:28)
[2018-10-05] MEDS: Celecoxib 100 MG CAP 200 MG PO (20:40)
[2018-10-05] MEDS: Normal Saline Flush 10 ML SYR IV ×2 (20:44→22:21)
[2018-10-05] MEDS: Mometasone 220 MCG 14 DOSE INHALER 2 PUFF IH (21:42)
[2018-10-05] MEDS: Nicotine 21 MG/24 HR PATCH TD (22:21)
[2018-10-05] MEDS: Omeprazole 20 MG CAPCR PO (22:22)
[2018-10-05] MEDS: Gabapentin 300 MG CAP 1200 MG PO (22:22)
[2018-10-05] MEDS: Atorvastatin 40 MG TAB PO (22:23)
[2018-10-05] MEDS: ARIPiprazole 15 MG TAB 30 MG PO (22:23)
[2018-10-05] MEDS: Aspirin E.C. 81 MG TABEC PO (22:23)
[2018-10-05] MEDS: metFORMIN C.R. 500 MG TABCR PO (22:23)
[2018-10-06 00:43] VITALS: BP 142/67; PULSE 69; RESP 18; TEMP 36.9; O2SAT 95
[2018-10-06] MEDS: HYDROmorphone 2 MG TAB PO ×2 (02:01→05:06)
[2018-10-06 02:02] VITALS: BP 112/68; PULSE 82; RESP 20; TEMP 36.3; O2SAT 93
[2018-10-06] MEDS: HYDROmorphone 2 MG/ML VIAL 0.5 MG IVP (03:00)
[2018-10-06] MEDS: Normal Saline Flush 10 ML SYR IV (03:00)
[2018-10-06] MEDS: Lactated Ringers 1,000 ML 80 ML IV (04:02)
[2018-10-06 05:06] VITALS: BP 134/72; PULSE 74; RESP 17; TEMP 36.9; O2SAT 89
[2018-10-06 06:47] LABS: HCT 33.1 % (36.0-46.0); HGB 10.3 g/dL (12.0-15.5); Mean Corp. HGB Concentration 31.1 g/dL (32.0-36.0); Mean Corpuscular Hemoglobin 26.8 pg (27.0-33.0); Mean Platelet Volume 10.9 fL (8.0-11.0); Platelet Count 180 x1000/uL (130-400); RBC 3.85 m/cumm (4.00-5.20); RBC Distribution Width 15.4 % (11.7-14.6); White Blood Cell Count 10.11 k/cumm (4.4-10.8)
[2018-10-06 06:54] LABS: Anion Gap 7.4 mmol/L (3-11); BUN 29 mg/dL (7-18); CO2 27.6 mmol/L (21.0-32.0); CREATININE 0.92 mg/dL (0.55-1.02); Calcium 8.9 mg/dL (8.5-10.1); Chloride 104 mmol/L (98-107); Glucose 168 mg/dL (70-100); Potassium 4.5 mmol/L (3.5-5.1); Sodium 139 mmol/L (136-145)
[2018-10-06] MEDS: Mometasone 220 MCG 14 DOSE INHALER 2 PUFF IH (07:13)
[2018-10-06 07:45] VITALS: BP 149/74; PULSE 83; RESP 20; TEMP 37.6; O2SAT 92
[2018-10-06] MEDS: Insulin Aspart 300 UNITS/3 ML PEN SC ×2 (09:25→12:33)
[2018-10-06] MEDS: Ondansetron O.D.T. 4 MG TABEF PO (09:26)
[2018-10-06] MEDS: Aspirin E.C. 81 MG TABEC PO (09:26)
[2018-10-06] MEDS: clonazePAM 1 MG TAB PO (09:26)
[2018-10-06] MEDS: Acetaminophen 500 MG TAB 1000 MG PO (09:27)
[2018-10-06] MEDS: Celecoxib 100 MG CAP 200 MG PO (09:27)
--- NOTE | 2018-10-06 09:39 | INDS_ITS ---
Date of service: 10/06/18 Time of Service: 09:24 PT Notes Inpatient Physical Therapy Discharge Summary Date: 10/06/18 Dates of Service: 10/05/18-10/06/18 SUBJECTIVE: Pt sitting in chair this morning for breakfast, agreeable to therapy session, states her leg feels good, reports she just received pain medication. She would like to be able to go home today. Pt instructed in MD precautions and recommendations, to be light weight bearing on left LE and use arms at all times with weight bearing activities. Pt verbalized understanding. OBJECTIVE: Bed Mobility/Transfers: Sit-stand: supervision from chair and wheelchair, instructed to push with arms for support Chair-wheelchair: supervision with FWW Stand-sit: supervision, cues to reach back with arms to control decent into chair Sit-supine: HOB flat, independent Gait: 35ftx2 with FWW, PWB L LE, step to gait pattern. instructed in use of upper body to unload L LE with steps and to maintain shorter stride length to decrease weight bearing load on LLE 25ftx2 with FWW, PWB L LE Stairs: up/down 5 steps with left railing and cane, PWB L LE, step to step sequence. Pt instructed in use of railing and cane for support. Pt with good stability on stairs, no increase in pain or structural alignment of L LE. Pt states she only has to do steps to get into the home, once inside she will be on one level. Therex: Pt has issued pre-op packet and home exercise program. Balance: Static Sitting: normal Dynamic Sitting: normal Static Standing: fair Dynamic Standing: fair Special Tests: Mobility Limitations Standardized Measure [facility] AM-PAC 6 clicks Basic Mobility Inpatient Short Form: Raw Score: 18 Standardized Score: 43.63 CMS Score: 46.58% CMS Modifier: CK Informed Consent/Education: Patient instructed in purpose of PT consult and plan of care. Assessment: Pt is a 48yr old female s/p left anterior total hip arthroplasty by Dr. Tineo 10/05/18. Pt has been seen for 3 sessions of PT, progressed from SBA standing transfers to supervision, from CGA gait with FWW 15ftx2 to supervision with FWW 35ftx2, able to ascend/descend 5 steps with railing and cane SBA. Pt is at functional level to be able to return to home setting with family support, she has all equipment she needs at home. Goals: Goals X1 week 1. Supine-Sit : independent 2. Sit-Supine : independent 3. Sit-Stand : supervision with FWW 4. Stand-Sit : supervision 5. Bed-Chair : SBA with FWW 6. Chair-Bed : SBA with FWW 7. Gait : SBA with FWW 75ft WBAT L LE 8. Stairs : up/down 10 steps with railing, SBA WBAT L LE 9. Independent with home exercise program Pt met goals # 1, 2, 3, 4, 5, 6, 7, 9 DISCHARGE RECOMMENDATIONS: Home, pt has all DME TREATMENT CODE/TIME: 15min TAx1 7:50 15min TAx1 9:20 G Codes in the area mobility of walking and moving around; projected status GP [id number]. Discharge status (if discharging) GP [id number] CK Jennifer Forte PT
[2018-10-06] MEDS: oxyCODONE 5 MG TAB PO (10:12)
--- NOTE | 2018-10-06 10:37 | PDOC.CMIN ---
Care Management Initial Assess REASON FOR HOSPITALIZATION:: Left Hip Avascular Necrosis PAST MEDICAL HISTORY/PAST SURGICAL HISTORY:: Avascular necrosis of left femoral head, Diabetes-on metformin, diagnosed last year. Her most recent Hemoglobin A1c was 6.5 in January of 2017. . Hypertension, Hyperlipidemia, Gastroesophageal reflux disease, Restless leg syndrome, for which she takes gabapentin, Depression with anxiety, Asthma, Avascular necrosis of the left hip, History of chest pain. Bilateral lower extremity edema, DVT, Tubal ligation, -section, Hysterectomy PREVIOUS FUNCTIONAL STATUS/SOCIAL/FAMILY SUPPORTS:: Per previous H&P: Lina resides in [place], [place]. 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 She recently sold her home and reportedly plans to move to [place]. CURRENT FUNCTIONAL STATUS:: Lina was sitting up in her chair; ready for discharge. She reported no questions at this time; CM reviewed discharge plan. ADVANCE DIRECTIVES:: None on file at [facility]. Has patient been provided with information about the portal?: Yes Did the patient sign up for the portal?: No CODE STATUS:: Full Code INSURANCE COVERAGE / FINANCIAL ISSUES:: BS CURRENT HOME/COMMUNITY SERVICES/EQUIPMENT:: FWW, Lina currently has OT assisting her with showering 1x/week. PRIMARY CARE PHYSICIAN:: Ivanna Way POTENTIAL DISCHARGE NEEDS:: Follow up appointment with PCP, coordination of increased services supports; increase in [facility] OT with addition of PT to begin Thursday due to holiday; CM faxed orders to [facility] intake. PATIENT/FAMILY EDUCATION NEEDS:: Review discharge instructions, discuss Ask Me Three. ANTICIPATED BARRIERS TO DISCHARGE:: None identified. TRANSPORTATION:: Lina will transport via private vehicle with her father. PLAN:: Lina will discharge home when ready per MD. She will follow up with her PCP and Dr. Tineo as well as her plan of care including medication recommendations and activity restrictions. She will have new orders for [facility] PT[facility]OT services and transport via private vehicle with her father.
--- NOTE | 2018-10-06 11:20 | INITIAL_ITS ---
Care Management Initial Assess REASON FOR HOSPITALIZATION:: Left Hip Avascular Necrosis PAST MEDICAL HISTORY/PAST SURGICAL HISTORY:: Avascular necrosis of left femoral head, Diabetes-on metformin, diagnosed last year. Her most recent Hemoglobin A1c was 6.5 in January of 2017. . Hypertension, Hyperlipidemia, Gastroesophageal reflux disease, Restless leg syndrome, for which she takes gabapentin, Depression with anxiety, Asthma, Avascular necrosis of the left hip , History of chest pain. Bilateral lower extremity edema, DVT, Tubal ligation, -section, Hysterectomy PREVIOUS FUNCTIONAL STATUS/SOCIAL/FAMILY SUPPORTS:: Per previous H&P: Lina resides in [place], [place]. 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 She recently sold her home and reportedly plans to move to [place]. CURRENT FUNCTIONAL STATUS:: Lina was sitting up in her chair; ready for discharge. She reported no questions at this time; CM reviewed discharge plan. ADVANCE DIRECTIVES:: None on file at [facility]. Has patient been provided with information about the portal?: Yes Did the patient sign up for the portal?: No CODE STATUS:: Full Code INSURANCE COVERAGE / FINANCIAL ISSUES:: BS CURRENT HOME/COMMUNITY SERVICES/EQUIPMENT:: FWW, Lina currently has OT assisting her with showering 1x/week. PRIMARY CARE PHYSICIAN:: Ivanna Way POTENTIAL DISCHARGE NEEDS:: Follow up appointment with PCP, coordination of increased services supports; increase in [facility] OT with addition of PT to begin Thursday due to holiday; CM faxed orders to [facility] intake. PATIENT/FAMILY EDUCATION NEEDS:: Review discharge instructions, discuss Ask Me Three. ANTICIPATED BARRIERS TO DISCHARGE:: None identified. TRANSPORTATION:: Lina will transport via private vehicle with her father. PLAN:: Lina will discharge home when ready per MD. She will follow up with her PCP and Dr. Tineo as well as her plan of care including medication recommendations and activity restrictions. She will have new orders for [facility] PT/ OT services and transport via private vehicle with her father.
[2018-10-06 11:45] VITALS: BP 119/72; PULSE 80; RESP 20; TEMP 37.2; O2SAT 97
--- NOTE | 2018-10-06 11:54 | W.PM.DS.N ---
Date of service: 10/06/18 Time of Service: 11:54 DS: Diagnosis Discharge Diagnosis (1) Avascular necrosis of left femoral head: Status: Acute (2) Fracture of proximal end of left femur: Status: Acute Discharge Plan Disposition Patient Disposition: HOME W/HOME HEALTH SERVICE Condition: Stable Discharge Details Reason For Visit: L HIP AVASCULAR NECROSIS Admit Date/Time: 10/05/18 05:37 Admit Provider: Diallo Tineo Attending Provider: Diallo Tineo Primary Care Provider: Ivanna Way [facility] Course Hospital Course: Lina was admitted to the medical surgical floor following her procedure. There were no medical or anesthetic complications. Unfortunately, she suffered an intraoperative femur fracture requiring cerclage cabling. The implant was stable and she was mobilized with physical therapy. She did have difficult pain control but seemed to be most stable on the Oxycodone. She was able to mobilize with PT including stairs with protected weight bearing. She was voiding spontaneously after tripathi catheter removal. Her post-operative Hgb was stable at 10.5. She was deemed safe for discharge home with [facility]. Home Meds and New Rx's Prescriptions: New aspirin 81 mg Tablet,Delayed Release (Dr/Ec) 81 mg PO BID Qty: 80 RF: 0 docusate sodium [Colace] 100 mg Capsule 100 mg PO BID PRN PRN (Reason: Constipation) Qty: 0 RF: 0 ondansetron 4 mg Tablet,Disintegrating 4 mg PO Q8H PRN PRNQty: 20 RF: 0 oxycodone 5 mg Tablet 5 - 10 mg PO Q4H PRN PRNQty: 20 RF: 0 Continue clonidine HCl 0.1 MG tablet 0.1 mg PO DAILY PRNRF: 0 fluticasone [Flonase Allergy Relief] 9.9 ML spray,suspension 9.9 ml NS DAILY PRNRF: 0 clonazepam 1 MG tablet 1 mg PO TID RF: 0 telmisartan [Micardis] 40 MG tablet 40 mg PO HS RF: 0 gabapentin 300 MG capsule 4 cap PO HS RF: 0 albuterol sulfate 8.5 GM HFA aerosol inhaler 2 puff Inhalation DAILY PRNRF: 0 aripiprazole [Abilify] 30 MG tablet 30 mg PO HS RF: 0 omeprazole 20 MG capsule,delayed release(DR/EC) 20 mg PO HS RF: 0 acetaminophen [Tylenol Arthritis Pain] 650 MG tablet extended release 1,300 mg PO TID PRNRF: 0 baclofen 10 MG tablet 10 mg PO PRN PRNRF: 0 nystatin 15 GM cream 1 applic Topical BID PRN PRNRF: 0 furosemide 20 MG tablet 1 tab PO DAILY PRNRF: 0 fenofibrate 160 MG tablet 160 mg PO HS RF: 0 fluticasone [Flovent HFA] 120 PUFF/INH HFA aerosol inhaler 2 puff Inhalation BID RF: 0 metformin 500 MG tablet extended release 24hr 500 mg PO HS RF: 0 nitroglycerin 0.4 MG tablet, sublingual 0.4 mg Sublingual Q5 MIN PRN X3 PRNQty: 1 RF: 0 atorvastatin 40 MG tablet 40 mg PO HS Qty: 30 RF: 0 gabapentin 300 mg Capsule 1 - 2 cap PO PRN PRNRF: 0 naproxen 375 mg Tablet 1 tab PO BID RF: 0 Discontinued beclomethasone dipropionate [Qvar] 120 PUFF aerosol 1 puff Inhalation BID RF: 0 Discharge Instructions Additional Instructions: Dr. Tineo?s Total Hip Discharge Instructions Activity: The most important activity is to walk. You should try to take short walks a few times a day. You have no restrictions on movement or positioning, but do not try to force what you do. Due to your fracture, you should place only partial weight on the left leg. You should have weight going through your arms on crutches or a walker at all times when you are up. You will find some stiffness and weakness with hip flexion (lifting your knee). Do not try to strengthen this too early, continue to practice walking and stairs and this will come. - Home health physical therapy can be helpful to help return you to a normal gait and improve your flexibility and strength. Physical therapy will continue to work with you with protected (<50%) weight bearing for the first 4 weeks. - You should wear the CLAUS hose on both legs for 4 weeks. Dressing: Keep the surgical dressing in place for at least one week. After the first week it may be removed and replace with light gauze and tape or nothing. It may get wet after 3 days but avoid soaking the dressing. If it gets wet, just lightly pat dry. It is important to always keep some gauze between skin folds, especially when you are sitting. Spend some time with the wound exposed when you are lying flat as the incision does wrinkle onto itself. Medications: - You should take Tylenol and an anti-inflammatory, Naproxen, as your primary pain control medications - You have been prescribed a stronger pain medication Oxycodone for breakthrough pain, take as needed as prescribed. - You also should continue your home stomach acid reduction agent Omeprazole to help reduce stomach acid and reflux. - You will be taking Aspirin 81mg twice a day for DVT prevention unless instructed otherwise. - If you have constipation you should take Colace or Miralax (both [id number]). It takes most people 3-4 days to have a bowel movement. Follow-up: 2 weeks1. Encounter Date and Reason I certify that LINA LAW was seen by Diallo Tineo on 10/06/18 and that I had a [id number] encounter with this patient that meets the physician face to face encounter requirements. 2. Clinical Findings Supporting Skilled Need and Homebound Status I certify that home health services are medically necessary, include either intermittent jail and/or physical/speech therapy, and that this patient is homebound in that absences from the home require considerable and taxing effort and are infrequent or of short duration, or are attributable to the need to receive medical care. [X] (a) Attached documentation from encounter provides clinical findings supporting skilled need and homebound status (including what assistance patient requires to leave the home). The encounter with the patient was in whole, or in part, for the following medical condition, which is the primary reason for home health care: L HIP AVASCULAR NECROSIS Shelter: Physical Therapy: Lina would benefit from continued home occupational therapy as well as physical therapy for her left hip and overall deconditioned state. She has significant weakness of the left leg s/p left hip replacement. She suffered an intraoperative fracture of the left femur and is thus protected (<50%) weight bearing to the left leg, using a walker at all times. PT should focus on gait training and improvements with these restrictions as well as mobility around the house and ADLs. Gentle range of motion and strengthening may also be continued. OT may help with ADLs and personal care. Speech Therapy: Homebound: Lina is unable to leave her home unassisted. She has significant weakness, limitations physically, and gait alterations which limit her ability to leave her home. 3. Certification and Authentication I certify that I composed the above information based on my clinical judgment relating to this patient's medical condition and, if applicable, clinical findings communicated to me by the NPP or inpatient physician who performed the Home Health Referral. All further orders will be obtained through Dr. Tineo Stand Alone Forms: Nursing Discharge Form Referrals: Diallo Tineo MD [ [facility] STAFF PHYSICIAN] - Activity:: Protected weight bearing to the left leg Equipment/Supplies:: Walker Diet:: As Tolerated Discharge Orders Discharge Orders: Discharge Order (Routine); Ordered 10/06/18 Ordered By: Diallo Tineo Exam Narrative Exam Narrative: NAD. AAOx3. Left hip tolerates internal and external rotation. Minimal pain with rotation. Pain to flexion and extension, located over the proximal thigh, not groin. Leg lengths are roughly the same. No distal, lateral thigh numbness. Foot WWP. DS: Data Vitals/I&O Vitals and I&O: Vital Signs Temperature 37.6 C H 10/06/18 07:45 Temperature Source Tympanic 10/06/18 07:45 Pulse 83 10/06/18 07:45 Pulse Rhythm Regular 10/05/18 20:30 Respiratory Rate 20 10/06/18 07:45 Respiratory Effort 10/05/18 20:30 Respiratory Depth Normal 10/05/18 20:30 Respiratory Pattern Normal 10/05/18 20:30 Blood Pressure 149/74 H 10/06/18 07:45 Pulse Oximetry 92 L 10/06/18 07:45 Respiratory End-tidal CO2 42 10/05/18 13:32 Oxygen Delivery Method Room Air 10/06/18 07:45 Oxygen Flow Rate 0 10/06/18 07:45 Pain Level 6 10/06/18 10:12 Comment 10/05/18 06:23 Intake & Output 10/05/18 10/05/18 10/06/18 11:59 23:59 11:59 Intake Total 920 / 920 1616 / 1616 640 / 640 Output Total 420 / 420 Balance 500 / 500 1616 / 1616 640 / 640 Weight 120.7 kg Intake: IV 920 / 920 1216 / 1216 150 / 150 Oral 400 / 400 490 / 490 Output: Urine Estimated Blood Loss 400 / 400 Other: Urine Color Yellow Urine Appearance Clear Clear Emesis Description None None Labs on day of discharge: Labs from last 24 hours 10/06/18 10/06/18 06:30 06:30 WBC 10.11 RBC 3.85 L Hgb 10.3 L Hct 33.1 L MCV 86.0 MCH 26.8 L MCHC 31.1 L RDW 15.4 H Plt Count 180 MPV 10.9 Sodium 139 Potassium 4.5 Chloride 104 Carbon Dioxide 27.6 Anion Gap 7.4 BUN 29 H Creatinine 0.92 Estimated GFR/1.73 m2 >= 60.00 Glucose 168 H Calcium 8.9 PFSH Social History Smoking/Tobacco Use Status: Current every day
--- NOTE | 2018-10-06 15:44 | PDOC.CMDIS ---
LACE Index Scoring Tool - Questions: Length of Stay (in days): 2 Acuity (Admit via E.D.?): No E.D. Visits: 6 - Answers: Total Score: 6 Risk of Readmission: Low Risk Care Management Discharge Reason for Hospitalization: Left Hip Avascular Necrosis Discharge Plan: Lina will discharge home when ready per MD. She will follow up with her PCP and Dr. Tineo as well as her plan of care including medication recommendations and activity restrictions. She will have new orders for [facility] PT/OT services and transport via private vehicle with her father. Patient/Family Education Needs: Review of discharge instructions, discuss Ask Me Three. Services Needed at Discharge: Home Health Care Services, Occupational Therapy, Physical Therapy ([facility] )
== END 2018-10-06 14:08 | disposition home health service (06) | DRG 470 ==
LOC: PDS 07:49 → MS 12:09
PROVIDERS: Admitting Provider Student in an Organized Health Care Education/Training Program; PCP Nurse Practitioner Family; Visit Provider Student in an Organized Health Care Education/Training Program
PROC: 0SRB04A Replacement of Left Hip Joint with Ceramic on Polyethylene Synthetic Substitute, Uncemented, Open Approach (ICD-10-PCS; CPT 27130; principal; 2018-10-05 07:30)
DX: M87.052 Idiopathic aseptic necrosis of left femur (principal); M96.89 Other intraoperative and postprocedural complications and disorders of the musculoskeletal system; M97.02XA Periprosthetic fracture around internal prosthetic left hip joint, initial encounter; Z96.641 Presence of right artificial hip joint; E66.9 Obesity, unspecified; I10 Essential (primary) hypertension; E11.42 Type 2 diabetes mellitus with diabetic polyneuropathy; G47.33 Obstructive sleep apnea (adult) (pediatric); F17.210 Nicotine dependence, cigarettes, uncomplicated; F31.9 Bipolar disorder, unspecified; Z79.84 Long term (current) use of oral hypoglycemic drugs
CPT/HCPCS: 27130; 27236; 36415; 80048; 85027; 94640; 97162; 97530; NC; 72170; 73501; J0690; J1100; J1885; J2250; J2405; J3010

== ENCOUNTER 2018-10-10 09:09 | Emergency (ER) | payer BC, SELFPAY ==
[2018-10-10 09:09] VITALS: BP 146/68; PULSE 83; RESP 16; TEMP 37; O2SAT 96
--- NOTE | 2018-10-10 09:53 | ED.GENADUL_ITS ---
Discharge Plan Disposition Patient Disposition: HOME Condition: Improving Discharge Details Chief Complaint: Orthopedic Clinical Impression: Post-operative pain Primary Care Provider: Ivanna Way ED Provider: Faraz Garcia Home Meds and New Rx's Prescriptions: Continue clonidine HCl 0.1 MG tablet 0.1 mg PO DAILY PRNRF: 0 fluticasone [Flonase Allergy Relief] 9.9 ML spray,suspension 9.9 ml NS DAILY PRNRF: 0 clonazepam 1 MG tablet 1 mg PO TID RF: 0 telmisartan [Micardis] 40 MG tablet 40 mg PO HS RF: 0 gabapentin 300 MG capsule 4 cap PO HS RF: 0 albuterol sulfate 8.5 GM HFA aerosol inhaler 2 puff Inhalation DAILY PRNRF: 0 aripiprazole [Abilify] 30 MG tablet 30 mg PO HS RF: 0 omeprazole 20 MG capsule,delayed release(DR/EC) 20 mg PO HS RF: 0 acetaminophen [Tylenol Arthritis Pain] 650 MG tablet extended release 1,300 mg PO TID PRNRF: 0 baclofen 10 MG tablet 10 mg PO PRN PRNRF: 0 nystatin 15 GM cream 1 applic Topical BID PRN PRNRF: 0 furosemide 20 MG tablet 1 tab PO DAILY PRNRF: 0 fenofibrate 160 MG tablet 160 mg PO HS RF: 0 fluticasone [Flovent HFA] 120 PUFF/INH HFA aerosol inhaler 2 puff Inhalation BID RF: 0 metformin 500 MG tablet extended release 24hr 500 mg PO HS RF: 0 nitroglycerin 0.4 MG tablet, sublingual 0.4 mg Sublingual Q5 MIN PRN X3 PRNQty: 1 RF: 0 atorvastatin 40 MG tablet 40 mg PO HS Qty: 30 RF: 0 gabapentin 300 mg Capsule 1 - 2 cap PO PRN PRNRF: 0 aspirin 81 mg Tablet,Delayed Release (Dr/Ec) 81 mg PO BID Qty: 80 RF: 0 docusate sodium [Colace] 100 mg Capsule 100 mg PO BID PRN PRN (Reason: Constipation) Qty: 0 RF: 0 ondansetron 4 mg Tablet,Disintegrating 4 mg PO Q8H PRN PRNQty: 20 RF: 0 oxycodone 5 mg Tablet 5 - 10 mg PO Q4H PRN PRNQty: 20 RF: 0 naproxen 375 mg Tablet 1 tab PO BID RF: 0 Discharge Instructions Additional Instructions: Continue your prescribed medications. Next dose of oxycodone may be at 2 PM. Please follow-up with orthopedics this week for recheck. Continue your home rehabilitation as you have been. Return to the emergency department if you develop a fever, severe or worsening pain, or any other acute concern Medical Decision Making 48-year-old female who is postop day #5 following left hip surgery with Dr Tineo. She did have an intraoperative femur fracture requiring cerclage cabling. She states to me that she has had severe pain since the time of discharge. She is able to use her walker to get out of bed and go to the bathroom, moved her bowels at home. She called EMS today due to ongoing severe pain despite use of oxycodone, Tylenol, & naproxen. On exam, her vital signs are unremarkable, surgical site appears c/d/i. IV placed, pt given ketorolac, antiemetic, and oxycodone. Referred for Xray to rule out migration of hardware or periprosthetic fracture. The radiographs are unremarkable. The patient states that she has had some improvement of her discomfort following the administered medications. She states she feels improved and would like to return to home. Discussed with her home strategies for pain management. She also understands return precautions to the ER. She will follow-up with orthopedics this week HPI General Mode of arrival: ambulatory . Date/Time Provider Initiated Documentation: 10/10/18 09:34 . Limitations to Documentation: no limitations . Information obtained by: patient . History of Present Illness 48 year old F presents to the emergency department with the chief complaint of Left hip pain, constant, since surgery at [facility], described as severe, Quality is described as aching, and is localized to the left and lower extremity. Patient reports no radiation. and it has been constant. Rest improves symptom(s), Movement worsens symptoms . Patient notes denies fever/ chills. Patient did receive the following treatments prior to arrival, other (Tylenol, ibuprofen, oxycodone) Related Data Home Medications Medication Instructions Recorded Confirmed albuterol sulfate 2 puff INHALATION DAILY PRN 05/01/15 10/10/18 aripiprazole [Abilify] 30 mg PO HS 05/01/15 10/10/18 clonazepam 1 mg PO TID 05/01/15 10/10/18 gabapentin 4 cap PO HS 05/01/15 10/10/18 telmisartan [Micardis] 40 mg PO HS 05/01/15 10/10/18 omeprazole 20 mg PO HS 03/07/17 10/10/18 clonidine HCl 0.1 mg PO DAILY PRN tab-cap 12/01/17 10/10/18 acetaminophen [Tylenol Arthritis 1,300 mg PO TID PRN 05/21/18 10/10/18 Pain] baclofen 10 mg PO PRN PRN 05/21/18 10/10/18 fenofibrate 160 mg PO HS 05/21/18 10/10/18 fluticasone [Flovent HFA] 2 puff INHALATION BID 05/21/18 10/10/18 furosemide 1 tab PO DAILY PRN 05/21/18 10/10/18 metformin 500 mg PO HS 05/21/18 10/10/18 nystatin 1 applic TOPICAL BID PRN PRN 05/21/18 10/10/18 atorvastatin 40 mg PO HS #30 tab 05/22/18 10/10/18 nitroglycerin 0.4 mg SUBLINGUAL Q5 MIN PRN X3 05/22/18 10/10/18 PRN #1 tab.subl fluticasone [Flonase Allergy 9.9 ml NS DAILY PRN 07/14/18 10/10/18 Relief] naproxen 1 tab PO BID 08/12/18 10/10/18 gabapentin 1 - 2 cap PO PRN PRN 10/05/18 10/10/18 aspirin 81 mg PO BID #80 tab 10/06/18 10/10/18 docusate sodium [Colace] 100 mg PO BID PRN PRN #0 cap 10/06/18 10/10/18 ondansetron 4 mg PO Q8H PRN PRN #20 tab 10/06/18 10/10/18 oxycodone 5 - 10 mg PO Q4H PRN PRN #20 tab 10/06/18 10/10/18 Previous Rx's Medication Instructions Recorded atorvastatin 40 mg PO HS #30 tab 05/22/18 nitroglycerin 0.4 mg SUBLINGUAL Q5 MIN PRN X3 05/22/18 PRN #1 tab.subl aspirin 81 mg PO BID #80 tab 10/06/18 docusate sodium [Colace] 100 mg PO BID PRN PRN #0 cap 10/06/18 ondansetron 4 mg PO Q8H PRN PRN #20 tab 10/06/18 oxycodone 5 - 10 mg PO Q4H PRN PRN #20 tab 10/06/18 Allergies Allergy/AdvReac Type Severity Reaction Status Date / Time oxycodone HCl [From Percocet] AdvReac Severe vomiiting Unverified 10/10/18 09:15 amoxicillin AdvReac Intermediate thrush Unverified 10/10/18 09:15 fluoxetine HCl [From Prozac] AdvReac Intermediate Pt states Unverified 10/10/18 09:15 she did not respond well latex AdvReac Unknown Unverified 10/10/18 09:15 adhesive tape AdvReac Rascon Unverified 10/10/18 09:15 STRAWBERRIES Allergy Intermediate Runny Uncoded 10/10/18 09:15 eyes, nose ALL RX PAINKILLERS AdvReac Severe Nausea Uncoded 10/10/18 09:15 General Stated Complaint: Orthopedic CAMPBELL: 3 Review of Systems Review of Systems 8 systems reviewed and otherwise neg PFSH Social History Smoking/Tobacco Use Status: Current every day Exam Narrative Exam Narrative: GEN: awake, alert, oriented 3. Pleasant, well groomed, interactive. HEAD: Normocephalic, atraumatic ENT: Mucous membranes dry, oropharynx unremarkable, External ear exam unremarkable EYES: PERRL, EOMI NECK: Full ROM, no DAWOOD, no menigismus CHEST/RESP: Nontender, clear to auscultation bilateral, no wheeze/rhonchi/rales CARDIOVASCULAR: RRR, no murmur, rub ivone. 2+ Rad pulse bilateral ABDOMEN: Soft, nontender, no mass. +Bowel sounds EXT: Bilateral 1+ edema. Left lower extremity reveals to rest surgical incision is clean dry and intact. The left leg is tender with some ecchymotic changes of left buttock. There is mild warmth present Neuro: Grossly normal neurologic exam, conversant, interactive. Psych: Speech fluent, thoughts congruent, affect normal Course Vital Signs Temperature 37.0 C 10/10/18 09:09 Pulse 83 10/10/18 09:09 Respiratory Rate 16 10/10/18 09:09 Blood Pressure 146/68 H 10/10/18 09:09 Pulse Oximetry 96 10/10/18 09:09 Temperature 37.0 C 10/10/18 09:09 Temperature Source Temporal Artery Scan 10/10/18 09:09 Pulse 83 10/10/18 09:09 Respiratory Rate 16 10/10/18 09:09 Respiratory Effort Non-Labored 10/10/18 09:26 Blood Pressure 146/68 H 10/10/18 09:09 Blood Pressure Position Supine 10/10/18 09:09 Pulse Oximetry 96 10/10/18 09:09 Oxygen Delivery Method Room Air 10/10/18 09:09 Oxygen Flow Rate 0 10/10/18 09:09 Pain Level 10 10/10/18 09:09
--- NOTE | 2018-10-10 09:56 | DI.RAD_ITS ---
SYMPTOM/DIAGNOSIS: POST OP PAIN LEFT HIP: Comparison is made with 05 Oct 2018. The exam is limited by the patient's body habitus. There has been no change in the appearance of the left hip prosthesis given differences in projection. There is no evidence of dislocation. There is a lucency seen in the intratrochanteric region which could represent a fracture. Clinical correlation is recommended.
[2018-10-10] MEDS: oxyCODONE 5 MG TAB ×2 (10:18→12:54)
[2018-10-10] MEDS: Ondansetron O.D.T. 4 MG TABEF PO (10:18)
[2018-10-10] MEDS: Normal Saline 1,000 ML 1000 ML IV (10:18)
[2018-10-10] MEDS: Ketorolac 30 MG/ML VIAL IVP (10:19)
[2018-10-10 10:28] LABS: Abs Immature Grans 0.05 k/cumm (0.0-0.09); Absolute Basophil Count 0.02 k/cumm (0.0-0.2); Absolute Eosinophil Count 0.21 k/cumm (0.0-0.7); Absolute Lymphocyte Count 1.82 k/cumm (1.2-3.4); Absolute Monocyte Count 0.54 k/cumm (0.11-0.7); Basophils % 0.3; HGB 9.8 g/dL (12.0-15.5); Immature Grans % 0.7; Lymphocytes % 26.2; Mean Corp. HGB Concentration 30.6 g/dL (32.0-36.0); Mean Corpuscular Hemoglobin 26.8 pg (27.0-33.0); Mean Corpuscular Volume 87.7 fL (80-95); Mean Platelet Volume 10.5 fL (8.0-11.0); Monocytes % 7.8; Platelet Count 222 x1000/uL (130-400); RBC 3.65 m/cumm (4.00-5.20); RBC Distribution Width 16.3 % (11.7-14.6); White Blood Cell Count 6.94 k/cumm (4.4-10.8)
[2018-10-10 10:46] LABS: ALT 46 U/L (12-78); AST 50 U/L (15-37); Alkaline Phosphatase 79 U/L (46-116); Anion Gap 6.5 mmol/L (3-11); BUN 17 mg/dL (7-18); Bilirubin, Total 0.5 mg/dL (0.2-1.0); CO2 31.5 mmol/L (21.0-32.0); CREATININE 0.71 mg/dL (0.55-1.02); Chloride 104 mmol/L (98-107); Glucose 118 mg/dL (70-100); Magnesium 1.9 mg/dL (1.8-2.4); Potassium 3.9 mmol/L (3.5-5.1); Sodium 142 mmol/L (136-145); Total Protein 7.1 g/dL (6.4-8.2)
--- NOTE | 2018-10-10 11:18 | DI.VRAD_ITS ---
EXAM: XR Left Hip with Pelvis when Performed, 2 or 3 Views EXAM DATE/TIME: 10/10/2018 9:58 AM CLINICAL HISTORY: 48 years old, female; Pain; Hip pain; Left hip; Prior surgery; Surgery date: 3-7 days post-operative TECHNIQUE: XR Left hip with pelvis when performed, 2 or 3 views COMPARISON: CR XR pelvis AP 10/05/2018 12:08 PM FINDINGS: Bones/joints: The patient is status post 2 part left hip prosthesis with proximal fixation wires. Alignment is anatomic. There is no evidence for fracture or dislocation. Soft tissues: Normal. IMPRESSION: No evidence for acute posttraumatic abnormality. COMMENT: Preliminary interpretation is based on receipt of 2 image(s). A final report will be issued subsequently. Dictated and Authenticated by: Lucy Sanchez MD. Ordering:TRISTAN BECKETT MD
[2018-10-10 12:35] VITALS: BP 174/91; PULSE 88; RESP 16; O2SAT 96
== END 2018-10-10 13:00 | disposition home or self-care (01) ==
LOC: ER 12:48
PROVIDERS: Emergency Provider Emergency Medicine; PCP Nurse Practitioner Family
DX: M25.552 Pain in left hip (principal); G89.18 Other acute postprocedural pain; Y83.1 Surgical operation with implant of artificial internal device as the cause of abnormal reaction of the patient, or of later complication, without mention of misadventure at the time of the procedure; M87.052 Idiopathic aseptic necrosis of left femur; Z96.642 Presence of left artificial hip joint; I12.9 Hypertensive chronic kidney disease with stage 1 through stage 4 chronic kidney disease, or unspecified chronic kidney disease; N18.9 Chronic kidney disease, unspecified; E11.22 Type 2 diabetes mellitus with diabetic chronic kidney disease; Z79.84 Long term (current) use of oral hypoglycemic drugs
CPT/HCPCS: 36415; 80053; 96361; 96374; 99284; 73502; 83735; 85025; J1885

== ENCOUNTER 2018-10-13 13:49 | Observation (INO) | payer BC, SELFPAY ==
[2018-10-13 13:54] VITALS: BP 121/53; PULSE 83; RESP 16; TEMP 36.9; O2SAT 94
[2018-10-13 14:03] VITALS: RESP 18
[2018-10-13 14:52] VITALS: BP 106/52; PULSE 76; TEMP 36.8; O2SAT 93
[2018-10-13 15:18] LABS: Abs Immature Grans 0.05 k/cumm (0.0-0.09); Absolute Basophil Count 0.02 k/cumm (0.0-0.2); Absolute Lymphocyte Count 1.52 k/cumm (1.2-3.4); Absolute Neutrophil Count 4.98 k/cumm (1.2-6.7); Basophils % 0.3; Eosinophils % 2.8; HCT 30.5 % (36.0-46.0); HGB 9.2 g/dL (12.0-15.5); Immature Grans % 0.7; Lymphocytes % 21.2; Mean Corp. HGB Concentration 30.2 g/dL (32.0-36.0); Mean Corpuscular Hemoglobin 26.7 pg (27.0-33.0); Mean Corpuscular Volume 88.4 fL (80-95); Mean Platelet Volume 9.4 fL (8.0-11.0); Monocytes % 5.6; Neutrophils % 69.4; Platelet Count 256 x1000/uL (130-400); RBC 3.45 m/cumm (4.00-5.20); RBC Distribution Width 16.9 % (11.7-14.6); White Blood Cell Count 7.17 k/cumm (4.4-10.8)
--- NOTE | 2018-10-13 15:39 | DI.US_ITS ---
SYMPTOM/DIAGNOSIS: RECENT SURG, EDEMA , R/O CLOT DUPLEX VENOUS ULTRASOUND BOTH LOWER EXTREMITIES: 10/13 Duplex evaluation of the deep venous system was performed according to the usual protocol. The deep veins are freely compressible throughout to the level of the popliteal veins. There is normal Doppler flow visible throughout and there is excellent flow augmentation with manual calf compression. CONCLUSION: No evidence of deep venous thrombosis.
[2018-10-13 15:52] LABS: ALT 34 U/L (12-78); AST 25 U/L (15-37); Albumin 3.1 g/dL (3.4-5.0); Alkaline Phosphatase 76 U/L (46-116); Anion Gap 7.6 mmol/L (3-11); BUN 17 mg/dL (7-18); Bilirubin, Total 0.4 mg/dL (0.2-1.0); CO2 32.4 mmol/L (21.0-32.0); CREATININE 0.84 mg/dL (0.55-1.02); Calcium 9.3 mg/dL (8.5-10.1); Chloride 103 mmol/L (98-107); Glucose 109 mg/dL (70-100); Potassium 3.7 mmol/L (3.5-5.1); Sodium 143 mmol/L (136-145); Total Protein 6.6 g/dL (6.4-8.2); Troponin I 0.02 ng/mL (0.00-0.06)
--- NOTE | 2018-10-13 16:24 | ED.GENADUL_ITS ---
Discharge Plan Disposition Patient Disposition: [facility] INPATIENT Condition: Good Discharge Details Chief Complaint: Vascular Clinical Impression: Adult failure to thrive, Edema Primary Care Provider: Ivanna Way ED Provider: Eber Cooper Home Meds and New Rx's Prescriptions: No Action clonidine HCl 0.1 MG tablet 0.1 mg PO DAILY PRNRF: 0 fluticasone [Flonase Allergy Relief] 9.9 ML spray,suspension 9.9 ml NS DAILY PRNRF: 0 oxycodone 10 mg tablet 10 mg PO Q4H MDD 60mg PRN (Reason: pain) Qty: 20 RF: 0 ondansetron 4 mg tablet,disintegrating 4 mg PO Q8H PRN PRN (Reason: nausea and vomiting) Qty: 20 RF: 3 clonazepam 1 MG tablet 1 mg PO TID RF: 0 telmisartan [Micardis] 40 MG tablet 40 mg PO HS RF: 0 gabapentin 300 MG capsule 4 cap PO HS RF: 0 albuterol sulfate 8.5 GM HFA aerosol inhaler 2 puff Inhalation DAILY PRNRF: 0 aripiprazole [Abilify] 30 MG tablet 30 mg PO HS RF: 0 omeprazole 20 MG capsule,delayed release(DR/EC) 20 mg PO HS RF: 0 acetaminophen [Tylenol Arthritis Pain] 650 MG tablet extended release 1,300 mg PO TID PRNRF: 0 baclofen 10 MG tablet 10 mg PO PRN PRNRF: 0 nystatin 15 GM cream 1 applic Topical BID PRN PRNRF: 0 furosemide 20 MG tablet 1 tab PO DAILY PRNRF: 0 fenofibrate 160 MG tablet 160 mg PO HS RF: 0 fluticasone [Flovent HFA] 120 PUFF/INH HFA aerosol inhaler 2 puff Inhalation BID RF: 0 metformin 500 MG tablet extended release 24hr 500 mg PO HS RF: 0 nitroglycerin 0.4 MG tablet, sublingual 0.4 mg Sublingual Q5 MIN PRN X3 PRNQty: 1 RF: 0 atorvastatin 40 MG tablet 40 mg PO HS Qty: 30 RF: 0 gabapentin 300 mg Capsule 1 - 2 cap PO PRN PRNRF: 0 aspirin 81 mg Tablet,Delayed Release (Dr/Ec) 81 mg PO BID Qty: 80 RF: 0 docusate sodium [Colace] 100 mg Capsule 100 mg PO BID PRN PRN (Reason: Constipation) Qty: 0 RF: 0 naproxen 375 mg Tablet 1 tab PO BID RF: 0 Medical Decision Making This is a pleasant 48-year-old female with a past medical history of morbid obesity, and a recent left-sided hip replacement with fracture of the femur during the operation secondary to the patient's size and bone density. She was eventually discharged, however at home the patient has been noticing gradual increase of swelling throughout her entire body despite being on Lasix, as well as complaints of generalized fatigue, failure to thrive, and feelings of inability to care for herself at home. She has been contacting Dr. Tineo on a daily basis at his clinic, after this most recent call he felt that he would be best to have her come and be evaluated. Physical exam demonstrates some generalized swelling throughout, with mild tenderness throughout all components of her lower extremities however no evidence of cellulitis, or significant abnormality. No evidence of pain out of proportion. All of her compartments are soft to the touch. Differential includes congestive heart failure versus iatrogenic or idiopathic edema. Differential also included DVT with the patient's family history of blood clots. Laboratory workup was performed and demonstrates no significant abnormalities. No white count, hemoglobin is slightly low but near her baseline. Platelets are normal. Electrolytes are normal, creatinine, calcium, troponin and proBNP are also normal. Total protein level is slightly low albumin level is low. Ultrasound was performed and demonstrates no evidence of DVT in her lower extremities bilaterally. I did reassess the patient with Dr. Tineo at bedside, at this point Dr. Tineo feels that due to the patient's social needs, as well as evidence of failure to thrive it would be best to keep her overnight. He would like to admit her to his service for the time being. Patient will be admitted to [facility]. I have extensively reviewed the treatment plan with the patient. I have addressed all patient concerns at this time. I have also discussed the plan with the admitting physician and they agree with the current assessment and plan and have agreed to assume responsibility for the patient. All parties demonstrate verbal understanding and agreement with our assessment and plan at this time. 15: 37 Rate 78, intervals normal, no ST elevations or depressions, no T wave inversions. Questionable small Q wave in lead III. HPI General Date/Time Provider Initiated Documentation: 10/13/18 14:06 . 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 Tineo. Since then the patient has been discharged home and has been doing fairly well however since discharge she has been noticing a continued increase in swelling in her upper and lower extremities. She denies any change in salty food intake, however with the she states she may have eaten some salty things. She does complain of pain all over in her calves and her legs. She has some associated swelling of her upper extremities as well. She does denies any history of DVT or PE in the past however she does have an aunt who had a DVT in the past. She states that she is generally weak, and feels that she is just decompensating in general. She has been contacting Dr. Tineo's office on a daily basis since discharge, and upon contacting him today he recommended that she come into the ER for further evaluation. She does admit to some associated symptoms of tingling in the tips of her feet as well as the tips of her toes. She denies any headache or vision changes. She denies any significant chest pain or shortness of breath. Patient does take furosemide at home and has been taking this regularly. She did just double up on her Lasix today at the recommendation of Dr. Tineo. Patient denies any other modifying factors. She denies any other complaints at this time. Related Data Home Medications Medication Instructions Recorded Confirmed albuterol sulfate 2 puff INHALATION DAILY PRN 05/01/15 10/13/18 aripiprazole [Abilify] 30 mg PO HS 05/01/15 10/13/18 clonazepam 1 mg PO TID 05/01/15 10/13/18 gabapentin 4 cap PO HS 05/01/15 10/13/18 telmisartan [Micardis] 40 mg PO HS 05/01/15 10/13/18 omeprazole 20 mg PO HS 03/07/17 10/13/18 clonidine HCl 0.1 mg PO DAILY PRN tab-cap 12/01/17 10/13/18 acetaminophen [Tylenol Arthritis 1,300 mg PO TID PRN 05/21/18 10/13/18 Pain] baclofen 10 mg PO PRN PRN 05/21/18 10/13/18 fenofibrate 160 mg PO HS 05/21/18 10/13/18 fluticasone [Flovent HFA] 2 puff INHALATION BID 05/21/18 10/13/18 furosemide 1 tab PO DAILY PRN 05/21/18 10/13/18 metformin 500 mg PO HS 05/21/18 10/13/18 nystatin 1 applic TOPICAL BID PRN PRN 05/21/18 10/13/18 atorvastatin 40 mg PO HS #30 tab 05/22/18 10/13/18 nitroglycerin 0.4 mg SUBLINGUAL Q5 MIN PRN X3 05/22/18 10/13/18 PRN #1 tab.subl fluticasone [Flonase Allergy 9.9 ml NS DAILY PRN 07/14/18 10/13/18 Relief] naproxen 1 tab PO BID 08/12/18 10/13/18 gabapentin 1 - 2 cap PO PRN PRN 10/05/18 10/13/18 aspirin 81 mg PO BID #80 tab 10/06/18 10/13/18 docusate sodium [Colace] 100 mg PO BID PRN PRN #0 cap 10/06/18 10/13/18 oxycodone 10 mg tablet 10 mg PO Q4H PRN #20 tab MDD 60mg 10/11/18 10/13/18 ondansetron 4 mg disintegrating 4 mg PO Q8H PRN PRN #20 tab 10/12/18 10/13/18 tablet Previous Rx's Medication Instructions Recorded atorvastatin 40 mg PO HS #30 tab 05/22/18 nitroglycerin 0.4 mg SUBLINGUAL Q5 MIN PRN X3 05/22/18 PRN #1 tab.subl aspirin 81 mg PO BID #80 tab 10/06/18 docusate sodium [Colace] 100 mg PO BID PRN PRN #0 cap 10/06/18 oxycodone 10 mg tablet 10 mg PO Q4H PRN #20 tab MDD 60mg 10/11/18 ondansetron 4 mg disintegrating 4 mg PO Q8H PRN PRN #20 tab 11/27/18 tablet Allergies Allergy/AdvReac Type Severity Reaction Status Date / Time oxycodone HCl [From Percocet] AdvReac Severe vomiiting Unverified 10/13/18 14:23 amoxicillin AdvReac Intermediate thrush Unverified 10/13/18 14:23 fluoxetine HCl [From Prozac] AdvReac Intermediate Pt states Unverified 10/13/18 14:23 she did not respond well latex AdvReac Unknown Unverified 10/13/18 14:23 adhesive tape AdvReac Rascon Unverified 10/13/18 14:23 STRAWBERRIES Allergy Intermediate Runny Uncoded 10/13/18 14:23 eyes, nose ALL RX PAINKILLERS AdvReac Severe Nausea Uncoded 10/13/18 14:23 General Stated Complaint: Vascular CAMPBELL: 3 Review of Systems Review of Systems All systems reviewed & are unremarkable except as noted in HPI and below Exam Narrative Exam Narrative: 1.Const: Well-nourished, Well-developed, appearing stated age, morbidly obese 2.Eyes: PERRL, no conjunctival injection, and symmetrical lids. 3.ENT: Atraumatic external nose and ears. Moist MM. Neck: Symmetric, trachea midline, No thyromegaly. 4.CVS: +S1/S2, mild systolic murmur auscultated. Peripheral pulses 2+ and equal in all extremities. Brisk capillary refill in all extremities. 5.RESP: Unlabored respiratory effort. Clear to auscultation bilaterally. No wheezes rales or rhonchi 6.GI: Soft, Nontender/Nondistended, No hepatosplenomegaly. No guarding or rebound. 7.MSK: Normocephalic, Extremities w/o deformity. No cyanosis or clubbing, notable +2 pitting edema in her lower extremities extending up the legs bilaterally, with minimal +1 pitting edema of her hands bilaterally. Normal sensation and strength and movement of all extremities, except strength is slightly limited for the left upper extremity secondary to mild pain from the initial surgery. Surgical incision site on the left demonstrates a clean dry and intact surgical incision site with no evidence of dehiscence, or significant abnormality. No signs of cellulitis or infection. 8.Skin: Warm, Dry. No rashes or lesions. 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 Sensation grossly intact, no focal neurologic deficits. 10.Psych: (AAO) x3. Appropriate mood and affect Course Vital Signs Temperature 36.9 C 10/13/18 13:54 Pulse 83 10/13/18 13:54 Respiratory Rate 16 10/13/18 13:54 Blood Pressure 121/53 L 10/13/18 13:54 Pulse Oximetry 94 L 10/13/18 13:54 Temperature 36.8 C 10/13/18 14:52 Temperature Source Skin 10/13/18 14:52 Pulse 76 10/13/18 14:52 Respiratory Rate 18 10/13/18 14:03 Respiratory Depth Normal 10/13/18 14:03 Blood Pressure 106/52 L 10/13/18 14:52 Blood Pressure Position Sitting 10/13/18 13:54 Pulse Oximetry 93 L 10/13/18 14:52 Oxygen Delivery Method Room Air 10/13/18 14:52 Oxygen Flow Rate 0 10/13/18 14:52 Pain Level 9 10/13/18 14:52 Lab/Test Results Lab/Test Results: Laboratory Tests Range/Units 10/13/18 15:05 WBC (4.4-10.8) k/cumm 7.17 RBC (4.00-5.20) m/cumm 3.45 L Hgb (12.0-15.5) g/dL 9.2 L Hct (36.0-46.0) % 30.5 L MCV (80-95) fL 88.4 MCH (27.0-33.0) pg 26.7 L MCHC (32.0-36.0) g/dL 30.2 L RDW (11.7-14.6) % 16.9 H Plt Count (130-400) x1000/uL 256 MPV (8.0-11.0) fL 9.4 Immature Gran % 0.7 Neutrophils % 69.4 Lymphocytes % 21.2 Monocytes % 5.6 Eosinophils % 2.8 Basophils % 0.3 Absolute Neutrophils (1.2-6.7) k/cumm 4.98 Absolute Lymphocytes (1.2-3.4) k/cumm 1.52 Absolute Monocytes (0.11-0.7) k/cumm 0.40 Absolute Eosinophils (0.0-0.7) k/cumm 0.20 Absolute Basophils (0.0-0.2) k/cumm 0.02
[2018-10-13 16:40] LABS: NT-proBNP 100 pg/mL
--- NOTE | 2018-10-13 16:45 | DI.VRAD_ITS ---
EXAM: US Bilateral Duplex Lower Extremity Veins EXAM DATE/TIME: 10/13/2018 4:29 PM CLINICAL HISTORY: 48 years old, female; Signs and symptoms; Edema, localized; Lower extremity, bilateral; Prior surgery; Surgery date: <1 month; Surgery type: Hip surgery TECHNIQUE: Real-time duplex ultrasound of the Bilateral Lower Extremities with 2-D corbin scale, color Doppler flow and spectral waveform analysis. Complete exam focused on the bilateral lower extremity veins. COMPARISON: No relevant prior studies available. FINDINGS: Right deep veins: Unremarkable. The common femoral, femoral and popliteal veins are patent without thrombus. Normal compressibility, augmentation response and Doppler waveforms. Right superficial veins: Saphenofemoral junction is patent without thrombus. Left deep veins: Unremarkable. The common femoral, femoral and popliteal veins are patent without thrombus. Normal compressibility, augmentation response and Doppler waveforms. Left superficial veins: Saphenofemoral junction is patent without thrombus. Soft tissues: Unremarkable. IMPRESSION: No acute findings. No evidence of deep vein thrombosis. Dictated and Authenticated by: Laz Bedoya MD. Ordering:IBIS KHAN MD
[2018-10-13 17:18] VITALS: BP 121/48; PULSE 82; RESP 18; TEMP 37; O2SAT 96
[2018-10-13 17:19] VITALS: BP 121/48; PULSE 82; RESP 18; TEMP 37; O2SAT 96
[2018-10-13] MEDS: Ondansetron 4 MG/2 ML VIAL (17:37)
[2018-10-13] MEDS: Normal Saline Flush 10 ML SYR IVP ×2 (17:38→21:51)
[2018-10-13 17:39] LABS: Bilirubin Negative (Negative); Blood Negative (Negative); Clarity Clear; Glucose Negative (Negative); Ketones Negative (Negative); Leukocyte Esterase Negative (Negative); Nitrite Negative (Negative); Specific Gravity 1.015 (1.005-1.025); Urobilinogen 0.2 EU/dL (Up TO 0.2); pH 5.5 (5-8)
[2018-10-13 17:45] VITALS: BP 154/88; PULSE 83; RESP 18; TEMP 37.3; O2SAT 92
--- NOTE | 2018-10-13 18:46 | NUR.NOTE ---
female pt came to the [facility] on stretcher accompanied by ER nurse. Pt is conscious alert and rational. Dark glasses not to face, pt state same were prescription glasses and she is unable to see with out them. Chest clear throughout, Abdomen obese and nicotine patch noted to the right upper quadrant. Bowel sounds heard. Left hip noted with dressing in place same falling off. area pink and swollen. area warm to touch. bilateral pedal odema to extremities.Difficulties to palpate pedal pulses at this time. Pt placed in bed with protocol followed
--- NOTE | 2018-10-13 18:56 | W.ORTHOCONSU ---
Date of service: 10/13/18 Time of Service: 18:57 History of Present Illness Chief Complaint: Increasing Edema and Pain Narrative: Lina is a 48-year-old who underwent anterior left total hip arthroplasty for avascular necrosis on 05 October. She is discharged home on the . She return to the emergency department on 10 October due to some increasing pain which was improved with minor altered ration of her medication regimen. Since that time she has noted increasing edema of bilateral upper and lower extremities. She feels like her arms and her legs are going to pop. She will have some numbness and tingling in a diffuse pattern of both hands and feet. With this increasing edema and the intraoperative fracture with altered weightbearing status, she finds herself unable to care for herself or mobilize at home. She is quite concerned about the amount of edema and her ability to live in her current home situation. She reports diffuse pain about the left hip mainly over the proximal, anterior aspect of the left thigh. She reports global decreased sensation worsened at her hands and over her anterior lateral left thigh. She has been taking oxycodone 10 mg. She has been tolerating this relatively well with the use of ondansetron. She denies any chest pain or shortness of breath. She denies any fevers or chills. She has been taking her home Lasix of 20 mg and did increase it to 40 mg today. She has not noted any significant increase in her urine output. Consults Consult date: 10/13/18 Requesting physician: Eber Cooper Consult Reason Failure to thrive, increasing edema and pain Assessment and Plan (1) Edema: Current visit: Yes Status: Acute Lina is a 48-year-old who has significant edema both bilateral upper extremities and lower extremities. This is likely related to third spacing and hypoalbuminemia. Unfortunately, the increase in fluid has made her mobilization nearly impossible as she reports. This is led to her inability to stay independent at her home. She feels unsafe to return to home with her current status. She is Lasix dependent I do think increasing her Lasix dose may very will help out in mobilizing some of this fluid. I would also encourage a high-protein diet. This fluid will likely shift intravascularly just given time. Her labs are reassuring without any concerning findings of her heart or kidneys. Her hemoglobin is stable, although still with postoperative anemia. I will start IV Lasix in the morning with the plan to repeat every 4-6 hours based on urine output. I will ask for hospice consult to assist in fluid management and treatment of her overwhelming edema. (2) Failure to thrive in adult: Current visit: Yes Status: Acute Lina is now return to the emergency room twice. She feels unable to return home and care for herself at home with the help of her father. This has worsened over the last few days with her increasing edema. I am hopeful that by decreasing her fluid load and by working with physical therapy we can quickly get her back to her home environment. However, may have to consider a [facility] facility as a transition from the hospital to home. (3) Avascular necrosis of left femoral head: Current visit: Yes Status: Acute She is status post hip replacement of the left side with intraoperative fracture. She is touchdown weightbearing, protected weightbearing. She has been able to maintain his precautions. She will continue with aspirin 81 mg twice daily for DVT prophylaxis. We will start physical therapy. Review of Systems Review of Systems All systems reviewed & are unremarkable except as noted in HPI and below PFSH Medical History Chronic pain (Chronic) GERD (gastroesophageal reflux disease) (Chronic) Hypertension (Chronic) Spasm (Chronic) Social History caregiver/support person: Yes (Father) household members: family lives independently: Yes Smoking/Tobacco Use Status: Current every day Surgical History Status post left hip replacement (Acute) Exam Const General: cooperative, comfortable and no acute distress Nutritional Appearance: overweight and edematous Orientation: alert, awake and oriented x3 HENMT Head: normal to inspection Eyes General: appearance normal, both eyes and all related structures Neck Neck: normal visual inspection, no lymphadenopathy and supple Resp Effort & Inspection: normal respiratory effort, able to speak in complete sentences, not labored and no respiratory distress Auscultation: clear to auscultation bilaterally and no crackles Cardio Rate: regular rate Rhythm: regular rhythm Extrem General: edema (2+ BUE, 3+ BLE) Laterality: bilateral Other: Evaluation of the left hip shows a clean dry and intact dressing. The incision is intact over the left thigh. There is some swelling of the left thigh. However, the thigh is compressible. No significant ecchymosis. There is a fullness and firmness to the left thigh. Decreased sensation is reported posterior and lateral to the incision but not down on the very distal aspect of the lateral left thigh. The leg grossly appears carpal to the contralateral side without significant shortening or malrotation. She tolerates internal and external rotation of the hip as well as some flexion with some minimal discomfort. However the motion is smooth without significant increase in pain. No signs of infection. Results Last Vital Signs Temp 37.3 C 10/13/18 17:45 Pulse 83 10/13/18 17:45 Resp 18 10/13/18 17:45 BP 154/88 H 10/13/18 17:45 Pulse Ox 92 L 10/13/18 17:45 Labs : 10/13/18 15:05 10/13/18 15:05 Laboratory Results - last 24 hr 10/13/18 10/13/18 10/13/18 15:05 15:05 15:05 WBC 7.17 RBC 3.45 L Hgb 9.2 L Hct 30.5 L MCV 88.4 MCH 26.7 L MCHC 30.2 L RDW 16.9 H Plt Count 256 MPV 9.4 Immature Gran % 0.7 Neutrophils % 69.4 Lymphocytes % 21.2 Monocytes % 5.6 Eosinophils % 2.8 Basophils % 0.3 Absolute Neutrophils 4.98 Absolute Lymphocytes 1.52 Absolute Monocytes 0.40 Absolute Eosinophils 0.20 Absolute Basophils 0.02 Sodium 143 Potassium 3.7 Chloride 103 Carbon Dioxide 32.4 H Anion Gap 7.6 BUN 17 Creatinine 0.84 Estimated GFR/1.73 m2 >= 60.00 Glucose 109 H Calcium 9.3 Total Bilirubin 0.4 AST 25 ALT 34 Alkaline Phosphatase 76 Troponin I 0.02 NT-Pro-B Natriuret Pep 100 Total Protein 6.6 Albumin 3.1 L Urine Color Urine Clarity Urine pH Ur Specific [place] Urine Protein Urine Ketones Urine Blood Urine Nitrite Urine Bilirubin Urine Urobilinogen Ur Leukocyte Esterase Urine Glucose 10/13/18 17:30 WBC RBC Hgb Hct MCV MCH MCHC RDW Plt Count MPV Immature Gran % Neutrophils % Lymphocytes % Monocytes % Eosinophils % Basophils % Absolute Neutrophils Absolute Lymphocytes Absolute Monocytes Absolute Eosinophils Absolute Basophils Sodium Potassium Chloride Carbon Dioxide Anion Gap BUN Creatinine Estimated GFR/1.73 m2 Glucose Calcium Total Bilirubin AST ALT Alkaline Phosphatase Troponin I NT-Pro-B Natriuret Pep Total Protein Albumin Urine Color Yellow Urine Clarity Clear Urine pH 5.5 Ur Specific [place] 1.015 Urine Protein Negative Urine Ketones Negative Urine Blood Negative Urine Nitrite Negative Urine Bilirubin Negative Urine Urobilinogen 0.2 Ur Leukocyte Esterase Negative Urine Glucose Negative Imaging Imaging Studies: DVT ultrasound was negative for blood clot.
[2018-10-13] MEDS: oxyCODONE 10 MG TAB PO (19:04)
[2018-10-13] MEDS: clonazePAM 1 MG TAB PO (19:04)
[2018-10-13] MEDS: Mometasone 220 MCG 14 DOSE INHALER 2 PUFF IH (19:05)
[2018-10-13] MEDS: Aspirin E.C. 81 MG TABEC PO (19:05)
[2018-10-13] MEDS: ARIPiprazole 15 MG TAB 30 MG PO (21:50)
[2018-10-13] MEDS: metFORMIN C.R. 500 MG TABCR PO (21:51)
[2018-10-13] MEDS: Gabapentin 300 MG CAP 1200 MG PO (21:51)
[2018-10-13] MEDS: Atorvastatin 40 MG TAB PO (21:51)
[2018-10-13] MEDS: Omeprazole 20 MG CAPCR PO (21:51)
[2018-10-14] MEDS: Ketorolac 15 MG/ML VIAL IVP ×2 (00:12→17:15)
[2018-10-14] MEDS: Docusate Sodium 100 MG CAP PO ×2 (03:12→13:07)
[2018-10-14] MEDS: oxyCODONE 10 MG TAB PO ×2 (04:40→13:07)
[2018-10-14] MEDS: Ondansetron O.D.T. 4 MG TABEF PO ×3 (05:37→18:35)
[2018-10-14] MEDS: Normal Saline Flush 10 ML SYR IVP ×3 (05:38→21:03)
[2018-10-14] MEDS: Furosemide 20 MG/2 ML VIAL 60 MG IVP (06:30)
[2018-10-14] MEDS: Mometasone 220 MCG 14 DOSE INHALER 2 PUFF IH ×2 (07:25→21:01)
--- NOTE | 2018-10-14 07:52 | PDOC.CMIN ---
- If Service Date Differs Date of service: 10/14/18 Time of Service: 07:52 Care Management Initial Assess REASON FOR HOSPITALIZATION:: Failure to Thrive. PAST MEDICAL HISTORY/PAST SURGICAL HISTORY:: Avascular necrosis of left femoral head, Diabetes type II, Hypertension, Hyperlipidemia, Gastroesophageal reflux disease, Restless leg syndrome, Depression with anxiety, Asthma, Avascular necrosis of the left hip, History of chest pain, DVT. Surgical hx: Tubal ligation, -section, Hysterectomy PREVIOUS FUNCTIONAL STATUS/SOCIAL/FAMILY SUPPORTS:: Lina resides in [place], [place] with her father. 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 When she , her agreed to pay her alimony for life. She recently sold her home and reportedly plans to move to [place] following her recovery from surgery. Lina is independent with her ADLs and transportation, and has OT services 1x/week for assistance with showering. Lina had a total knee surgery on 10/05/[address] Tineo. CURRENT FUNCTIONAL STATUS:: Lina is lying in bed when CM visits this morning. She is engaged in conversation and is talkative. Lina wears her sunglasses, as she has at past encounters. She reports that her pain is a 7/10 and she is nauseous. Lina reports that she has been skipping her scheduled pain medications due to her nausea. She has pitting edema bilaterally (upper and lower extremities). Lina reports that last evening she was ambulating independently with a walker but this morning nursing has informed her that she needs to call before getting up and had put on her bed alarms. This annoys her; CM discussed the safety reasons/fall concerns. Lina reports that she is 'jonesing' for a cigarrette. CM asked RADHA Rivers for a nicotrol order for Lina. Lina is frustrated by her readmission and feels that she is ready to go home, pending MD approval. Lina is refusing short term SNF placement for strengthening following discharge from [facility]. ADVANCE DIRECTIVES:: None on file at [facility]. Lina reports that they are on file at [facility] and has requested that CM phone for them. She would also like them faxed to her PCP, which CM will do. Has patient been provided with information about the portal?: Yes Did the patient sign up for the portal?: No CODE STATUS:: Full Code INSURANCE COVERAGE / FINANCIAL ISSUES:: Blue Cross Blue [facility]. CURRENT HOME/COMMUNITY SERVICES/EQUIPMENT:: PT/OT 3/week. Services began following discharge on 10/06/18. Prior to that, Lina had OT services 1x/week for showering assistance. FWW. PRIMARY CARE PHYSICIAN:: Ivanna Way. POTENTIAL DISCHARGE NEEDS:: Follow up appointment with PCP, coordination of increased services supports; increase in [facility] OT with addition of PT vs. s/t SNF placement. PATIENT/FAMILY EDUCATION NEEDS:: Discharge education, any limitations, and follow up plan of care. Ask Me Three discussion. ANTICIPATED BARRIERS TO DISCHARGE:: None identified. TRANSPORTATION:: Lina will transport via private vehicle with her father. PLAN:: Lina will discharge home vs. SNF when ready per MD. She will follow up with her PCP and Dr. Tineo as well as her plan of care including medication recommendations and activity restrictions. She will have new orders for [facility] PT/OT services. Readmission - Within the Past 30 Days Yes or No: Y - Date of First Admission Date of 1st Admission: 10/05/18 - Date of this Admission Date of Admission: 10/13/18 This admission was: Through ED - Office Visit Since 1st Admission Have you seen your PCP in the office since discharge?: No Had an appointment Been Scheduled?: No Describe barriers for scheduling or getting an appointment: Patient was to call for a follow up appointment and had not done so. She was rehospitalized prior to an appointment but had spoken with Dr. Tineo by phone. - Speicalist Appointments Have you seen any other specialist since your 1st Admission?: No - I. Interview patient and/or Family Difficulty reaching your doctor or getting an office appt?: No Have you had trouble purchasing/ or taking medication?: No Have you had trouble with getting meals at home?: No Did you feel ready for discharge when you left the last time: Yes Were services received that you thought were set up on disch: Yes What services were received?: [facility]; services PT/OT. [facility] had visited 3x/week. Did you call your physician beore you came to the ED?: Yes Did your physician tell you to come in?: Yes How do you think you became sick enough to come back?: Patient is unsure. - If the patient had a VNA ordered Did the patient have a VNA order?: Yes Did you call the VNA before you came?: No Did the VNA tell you to come to the hospital?: No - ED visits How many ED visits in the past 12 months: 7
--- NOTE | 2018-10-14 07:59 | INITIAL_ITS ---
- If Service Date Differs Date of service: 10/14/18 Time of Service: 07:52 Care Management Initial Assess REASON FOR HOSPITALIZATION:: Failure to Thrive. PAST MEDICAL HISTORY/PAST SURGICAL HISTORY:: Avascular necrosis of left femoral head, Diabetes type II, Hypertension, Hyperlipidemia, Gastroesophageal reflux disease, Restless leg syndrome, Depression with anxiety, Asthma, Avascular necrosis of the left hip, History of chest pain, DVT. Surgical hx: Tubal ligation, -section, Hysterectomy PREVIOUS FUNCTIONAL STATUS/SOCIAL/FAMILY SUPPORTS:: Lina resides in [place], [place] with her father. 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 When she , her agreed to pay her alimony for life. She recently sold her home and reportedly plans to move to [place] following her recovery from surgery. Lina is independent with her ADLs and transportation, and has OT services 1x/ week for assistance with showering. Lina had a total knee surgery on 10/05/[address] Tineo. CURRENT FUNCTIONAL STATUS:: Lina is lying in bed when CM visits this morning. She is engaged in conversation and is talkative. Lina wears her sunglasses, as she has at past encounters. She reports that her pain is a 7/10 and she is nauseous. Lina reports that she has been skipping her scheduled pain medications due to her nausea. She has pitting edema bilaterally (upper and lower extremities). Lina reports that last evening she was ambulating independently with a walker but this morning nursing has informed her that she needs to call before getting up and had put on her bed alarms. This annoys her; CM discussed the safety reasons/fall concerns. Lina reports that she is ' jonesing' for a cigarrette. CM asked RADHA Rivers for a nicotrol order for Lina. Lina is frustrated by her readmission and feels that she is ready to go home, pending MD approval. Lina is refusing short term SNF placement for strengthening following discharge from [facility]. ADVANCE DIRECTIVES:: None on file at [facility]. Lina reports that they are on file at [facility] and has requested that CM phone for them. She would also like them faxed to her PCP, which CM will do. Has patient been provided with information about the portal?: Yes Did the patient sign up for the portal?: No CODE STATUS:: Full Code INSURANCE COVERAGE / FINANCIAL ISSUES:: Blue Cross Blue [facility]. CURRENT HOME/COMMUNITY SERVICES/EQUIPMENT:: PT/OT 3/week. Services began following discharge on 10/06/18. Prior to that, Lian had OT services 1x/week for showering assistance. FWW. PRIMARY CARE PHYSICIAN:: Ivanna Way. POTENTIAL DISCHARGE NEEDS:: Follow up appointment with PCP, coordination of increased services supports; increase in [facility] OT with addition of PT vs. s/t SNF placement. PATIENT/FAMILY EDUCATION NEEDS:: Discharge education, any limitations, and follow up plan of care. Ask Me Three discussion. ANTICIPATED BARRIERS TO DISCHARGE:: None identified. TRANSPORTATION:: Lina will transport via private vehicle with her father. PLAN:: Lina will discharge home vs. SNF when ready per MD. She will follow up with her PCP and Dr. Tineo as well as her plan of care including medication recommendations and activity restrictions. She will have new orders for [facility]NA PT/ OT services. Readmission - Within the Past 30 Days Yes or No: Y - Date of First Admission Date of 1st Admission: 10/05/18 - Date of this Admission Date of Admission: 10/13/18 This admission was: Through ED - Office Visit Since 1st Admission Have you seen your PCP in the office since discharge?: No Had an appointment Been Scheduled?: No Describe barriers for scheduling or getting an appointment: Patient was to call for a follow up appointment and had not done so. She was rehospitalized prior to an appointment but had spoken with Dr. Tineo by phone. - Speicalist Appointments Have you seen any other specialist since your 1st Admission?: No - I. Interview patient and/or Family Difficulty reaching your doctor or getting an office appt?: No Have you had trouble purchasing/ or taking medication?: No Have you had trouble with getting meals at home?: No Did you feel ready for discharge when you left the last time: Yes Were services received that you thought were set up on disch: Yes What services were received?: [facility]; services PT/ OT. [facility] had visited 3x/week. Did you call your physician beore you came to the ED?: Yes Did your physician tell you to come in?: Yes How do you think you became sick enough to come back?: Patient is unsure. - If the patient had a VNA ordered Did the patient have a VNA order?: Yes Did you call the VNA before you came?: No Did the VNA tell you to come to the hospital?: No - ED visits How many ED visits in the past 12 months: 7
[2018-10-14] MEDS: Aspirin E.C. 81 MG TABEC PO ×2 (08:14→21:01)
[2018-10-14] MEDS: clonazePAM 1 MG TAB PO ×3 (08:14→21:01)
[2018-10-14 09:20] VITALS: BP 124/69; PULSE 73; RESP 16; TEMP 37.2; O2SAT 93
--- NOTE | 2018-10-14 11:03 | PT.INIE ---
Date of service: 10/14/18 Time of Service: 11:03 PT Notes Date: 10/14/18 Referring Doctor: Diallo Tineo PT Orders: PT CONSULT: s/p L anterior NORBERTO with fracture, TDWB L LE Precautions: TDWB L LE Patient Profile/Admitting Diagnosis: Pt is a 48yr old female s/p left anterior total hip arthroplasty by Dr. 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 Baseline mobility 4WW or cane in home setting, FWW or 4WW in community. Independent with ADLS Equipment Owned/DME: cane, 4WW, FWW Subjective: Pt just getting herself back to bed, agreeable to PT Consult. Pt states she is moving well, she is having difficulty lifting her legs into bed due to edema. Objective: General Observation: 2-3 plus edema bilateral hands and feet Mental Status: A& O x3 Pain: no c/o pain Bed Mobility/Transfers: * Pt issued leg turfgrass technician to assist with bed transfers and instructed in it's use. Supine-sit: HOB 30 degrees, independent with use leg turfgrass technician Sit-stand: independent with FWW Stand-sit: independent Sit-supine: HOB Flat, independent with leg turfgrass technician Gait: Supervision with FWW 30ftx2 in room, slow step to gait pattern, TDWB L LE. Pt returned to bed after session completed with all extremities elevated on pillows. RN notified recommending CLAUS hose for bilateral LE's Therex: Pt performed ankle pumps, quad sets, glute sets x 20 reps, heel slides x 10 reps, bilateral hand pumps x 10 reps Balance: Static Sitting: normal Dynamic Sitting: normal Static Standing: fair Dynamic Standing: fair Special Tests: Mobility Limitations Standardized Measure [facility] 6 clicks Basic Mobility Inpatient Short Form: Raw Score: 18 Standardized Score: 43.63 CMS Score: 46.58% CMS Modifier: CK Informed Consent/Education: Patient instructed in purpose of PT consult and plan of care. Assessment: Pt is a 48yr old female s/p left anterior total hip arthroplasty by Dr. 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 Patient with decreased strength in lower extremities post operatively due to edema in extremities, she was able to perform bed transfers after instruction in use of leg turfgrass technician- performed independently, pt able to mobilize with FWW to hallway and back to room with FWW with supervision, cues provided to maintain TDWB precautions L LE. Recommend patient mobilize to bathroom for toileting to increase mobility, she can perform independently with FWW if she is alert, but if she is tired or groggy or at night, recommend nursing supervision for safety, pt in agreement. Pt's primary limitation at this time is edema. Will initiate short term therapy for strengthening and progressive mobility training. Anticipate return to home setting when edema reduced and patient medically cleared, resume home PT/OT. Impairments are contributing to the following functional limitations: AMPAC score CMS Score: 46.58% Patient is assessed as a Moderate 35821 complexity based on the following: History: see above Examination: see above Presentation: evolving Decision Making: AMPAC score CMS Score: 46.58% Goals: Goals X1 week 1. Supine-Sit : independent 2. Sit-Supine : independent 3. Sit-Stand : supervision with FWW 4. Stand-Sit : supervision 5. Bed-Chair : SBA with FWW 6. Chair-Bed : SBA with FWW 7. Gait : SBA with FWW 75ft WBAT L LE 8. Stairs : up/down 10 steps with railing, SBA WBAT L LE 9. Independent with home exercise program Plan of Care/Treatment Plan: 1-2x/day, 7 days/week x 1 week. Plan of care has been reviewed with the BULL RIVETER providing the service under Physical Therapy direction. Initiate Physical Therapy intervention for strengthening, bed mobility, transfers, gait, stairs, balance training, use of assistive device. DISCHARGE RECOMMENDATIONS: Home, pt has all DME TREATMENT CODE/TIME: 25 min IE 1103 G Codes in the area mobility of walking and moving around: current status [id number]; projected status GP [id number]. Discharge status (if discharging) GP [id number] CK based on [facility] score [facility] Score: 46.58% Jennifer Forte PT
--- NOTE | 2018-10-14 11:13 | IN_ITS ---
Date of service: 10/14/18 Time of Service: 11:03 PT Notes Date: 10/14/18 Referring Doctor: Diallo Tineo PT Orders: PT CONSULT: s/p L anterior NORBERTO with fracture, TDWB L LE Precautions: TDWB L LE Patient Profile/Admitting Diagnosis: Pt is a 48yr old female s/p left anterior total hip arthroplasty by Dr. 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 Baseline mobility 4WW or cane in home setting, FWW or 4WW in community. Independent with ADLS Equipment Owned/DME: cane, 4WW, FWW Subjective: Pt just getting herself back to bed, agreeable to PT Consult. Pt states she is moving well, she is having difficulty lifting her legs into bed due to edema. Objective: General Observation: 2-3 plus edema bilateral hands and feet Mental Status: A& O x3 Pain: no c/o pain Bed Mobility/Transfers: * Pt issued leg bleach machine operator to assist with bed transfers and instructed in it's use. Supine-sit: HOB 30 degrees, independent with use leg bleach machine operator Sit-stand: independent with FWW Stand-sit: independent Sit-supine: HOB Flat, independent with leg bleach machine operator Gait: Supervision with FWW 30ftx2 in room, slow step to gait pattern, TDWB L LE. Pt returned to bed after session completed with all extremities elevated on pillows. RN notified recommending CLAUS hose for bilateral LE's Therex: Pt performed ankle pumps, quad sets, glute sets x 20 reps, heel slides x 10 reps, bilateral hand pumps x 10 reps Balance: Static Sitting: normal Dynamic Sitting: normal Static Standing: fair Dynamic Standing: fair Special Tests: Mobility Limitations Standardized Measure [facility] 6 clicks Basic Mobility Inpatient Short Form: Raw Score: 18 Standardized Score: 43.63 CMS Score: 46.58% CMS Modifier: CK Informed Consent/Education: Patient instructed in purpose of PT consult and plan of care. Assessment: Pt is a 48yr old female s/p left anterior total hip arthroplasty by Dr. 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 Patient with decreased strength in lower extremities post operatively due to edema in extremities, she was able to perform bed transfers after instruction in use of leg bleach machine operator- performed independently, pt able to mobilize with FWW to hallway and back to room with FWW with supervision, cues provided to maintain TDWB precautions L LE. Recommend patient mobilize to bathroom for toileting to increase mobility, she can perform independently with FWW if she is alert, but if she is tired or groggy or at night, recommend nursing supervision for safety , pt in agreement. Pt's primary limitation at this time is edema. Will initiate short term therapy for strengthening and progressive mobility training. Anticipate return to home setting when edema reduced and patient medically cleared, resume home PT/OT. Impairments are contributing to the following functional limitations: AMPAC score CMS Score: 46.58% Patient is assessed as a Moderate 24586 complexity based on the following: History: see above Examination: see above Presentation: evolving Decision Making: AMPAC score CMS Score: 46.58% Goals: Goals X1 week 1. Supine-Sit : independent 2. Sit-Supine : independent 3. Sit-Stand : supervision with FWW 4. Stand-Sit : supervision 5. Bed-Chair : SBA with FWW 6. Chair-Bed : SBA with FWW 7. Gait : SBA with FWW 75ft WBAT L LE 8. Stairs : up/down 10 steps with railing, SBA WBAT L LE 9. Independent with home exercise program Plan of Care/Treatment Plan: 1-2x/day, 7 days/week x 1 week. Plan of care has been reviewed with the DIGITAL TRAFFIC COORDINATOR providing the service under Physical Therapy direction. Initiate Physical Therapy intervention for strengthening, bed mobility, transfers, gait, stairs, balance training, use of assistive device. DISCHARGE RECOMMENDATIONS: Home, pt has all DME TREATMENT CODE/TIME: 25 min IE 1103 G Codes in the area mobility of walking and moving around: current status [id number]; projected status GP [id number]. Discharge status (if discharging) GP G8980 CK based on [facility] score [facility] Score: 46.58% Jennifer Forte PT
--- NOTE | 2018-10-14 11:13 | PHARADMIT ---
Admission Pharmacy Clinical Review FAILURE TO THRIVE, recent Hip replacement Code Status Full Code Current Weight Wgt-124.7 kg Renally Cleared and Narrow Therapeutic Index Meds CrCl~ 71.4 mL/min Meds-OK QTc Value / Action Taken NA BP Control, Fever BP- 1024/59 Tmax- 37.3 Electrolytes reviewed Na- 143 K+3.7 DVT Prophylaxis ASA Opiate Usage / Scheduled Bowel Regimen Ordered Yes Yes Plt/SCr for Heparin / Enoxaparin Plts- 256 SCr-0.84 INR for Warfarin na H/H stable, WBC/Bands H&H- 9.2/30.5 WBC- 7.17 Antibiotic appropriateness na Cultures and Sensitivities NONE Surgical ABX d/c within 24 hr david DM control / Insulin Dosing BG-109 Metformin Heart Failure (Check EF%) (SAMMIE's, B-Block, Diuretics) NTG, Telmisartan IV to PO Switch No Home Meds Reviewed Yes Home Meds Not Ordered Lasix, Comments
--- NOTE | 2018-10-14 11:57 | OT.INIE ---
Occupational Therapy Notes Inpatient Occupational Therapy Evaluation Date: 10/14/18 Referring Doctor:Diallo Tineo MD OT Orders: BLE and BUE, evaluate for ADL, home safety Precautions: TDWB (L) LE PATIENT PROFILE/ADMITTING DIAGNOSIS: Pt is a 48 year old female who was admitted to [facility] for bilateral upper and lower extremity edema s/p left anterior total hip arthroplasty by Dr. Tineo 10/05/18. 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 Current Functional Limitations: Decreased functional activity tolerance due to edema, increased pain, pt denies any decrease in functional ADLs and reports that she has OT come in to her home to assist with bathing routine, and/or she sponge baths everyday. Social History/Home Situation: : Pt reports that she lives with father in a private house with 2 steps to enter, 10 steps with railing to living area. She reports that her home is set up with two floors the second floor containing bedroom and bathroom with walk in shower and bench. She has a raised commode toilet seat which she uses to increase her (I) in toileting routine. A home health OT assists her with bathing and/or she sponge baths everyday. Pt reports that her father performs all the cooking and grocery shopping. She was performing grocery shopping prior to surgery on 10/05/18 and feels that once her edema is managed that she will be able to return to this. Pt reports that she performs her grooming including hair and teeth brushing at the sink and toilets (I) as long as she has a raised toilet seat. Her mom lives near by and assists if needed. Equipment owned/DME: cane, 4WW, FWW, shower bench, removable shower head, grab bars. SUBJECTIVE: Pt was lying in bed when OT arrived with (B) UE/LE elevated on pillows due to edema. Pt starts crying reporting that she is in pain and that she needs pain medication but is unable to take pain medication without anti nausea medication which she can only get every 6 hours. She reports that this is what she was told and that she usually takes medication every 4 hours. OT discusses with pt that OT doesn't handle any type of medications but will discuss this with nursing. OT discussed with nursing post session and nursing had already discussed medication option with pt, which pt denied at the time. Pt is agreeable to OT consult. OBJECTIVE: General Observation: Increased edema in (B) UE, (B) LE and pt's (B) UE/LE elevated on pillows. Mental Status: A&Ox3 Pain: c/o pain however pt is unable to quantify. ROM: RUE WFL L UE WFL STRENGTH: RUE 4/5 shoulder flexion, 5/5 elbow, 5/5 braille typist LUE 5/5 throughout SENSATION: Pt intact to light touch and sensation through (B) UE. BALANCE: Static sitting normal Dynamic Sitting normal SPECIAL TESTS: Daily Activity Limitations Standardized Measure [facility] AM -PAC ?6 clicks? Daily Activity Inpatient Short Form: Raw score: 17 Standardized score: 37.26 CMS score: 50.11% CMS modifier: CK INFORMED CONSENT/EDUCATION: Pt instructed in purpose of OT Consult and plan of care. ASSESSMENT: Patient is a 48-year-old female referred to occupational therapy services with diagnosis of (B) LE and (B) UE edema for management of ADLs and home safety s/p L anterior NORBERTO with fracture, TDWB (L) LE on 10/05/[address] Tineo and re-admitted for (B) UE/LE edema. Patient presents with clinical signs and symptoms consistent with dx, as demonstrated by the following impairment level findings and functional limitations: Decreased functional activity tolerance due to edema, increased pain, pt denies any decrease in functional ADLs and reports that she has OT come in to her home to assist with bathing routine, and/or she sponge baths everyday. Pt was seen for OT consult only, she reports that she doesn't need help with ADLs at this time and has supportive family and friends that can help her as necessary. Pt feels that once her pain and edema is managed that she will be back to her baseline. AMPAC score 17, CMS score 50.11% Patient is assessed as a Moderate [id number] complexity based on the following: History: See Above Examination: See Above Presentation: Evolving Decision Making: AMPAC Score 17, CMS score 50.11% GOALS N/A PLAN OF CARE/TREATMENT PLAN: Pt was seen for OT eval only. DISCHARGE RECOMMENDATIONS Home when medically cleared, currently has home health OT and all DME TREATMENT TIME/MINUTES/CODES IE 25 min (11:30) G Codes in the area of self- : washing oneself, toileting, dressing, eating and drinking, current status GO [id number] CK projected status GO [id number]. Discharge status GO [id number] Based on AMPAC score 17, CMS score 50.11%. Jessica Nassar, OTR/L
--- NOTE | 2018-10-14 12:03 | OTIE_ITS ---
Occupational Therapy Notes Inpatient Occupational Therapy Evaluation Date: 10/14/18 Referring Doctor:Diallo Tineo MD OT Orders: BLE and BUE, evaluate for ADL, home safety Precautions: TDWB (L) LE PATIENT PROFILE/ADMITTING DIAGNOSIS: Pt is a 48 year old female who was admitted to [facility] for bilateral upper and lower extremity edema s/p left anterior total hip arthroplasty by Dr. Tineo 10/05/18. 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 Current Functional Limitations: Decreased functional activity tolerance due to edema, increased pain, pt denies any decrease in functional ADLs and reports that she has OT come in to her home to assist with bathing routine, and/or she sponge baths everyday. Social History/Home Situation: : Pt reports that she lives with father in a private house with 2 steps to enter, 10 steps with railing to living area. She reports that her home is set up with two floors the second floor containing bedroom and bathroom with walk in shower and bench. She has a raised commode toilet seat which she uses to increase her (I) in toileting routine. A home health OT assists her with bathing and/or she sponge baths everyday. Pt reports that her father performs all the cooking and grocery shopping. She was performing grocery shopping prior to surgery on 10/05/18 and feels that once her edema is managed that she will be able to return to this. Pt reports that she performs her grooming including hair and teeth brushing at the sink and toilets (I) as long as she has a raised toilet seat. Her mom lives near by and assists if needed. Equipment owned/DME: cane, 4WW, FWW, shower bench, removable shower head, grab bars. SUBJECTIVE: Pt was lying in bed when OT arrived with (B) UE/LE elevated on pillows due to edema. Pt starts crying reporting that she is in pain and that she needs pain medication but is unable to take pain medication without anti nausea medication which she can only get every 6 hours. She reports that this is what she was told and that she usually takes medication every 4 hours. OT discusses with pt that OT doesn't handle any type of medications but will discuss this with nursing. OT discussed with nursing post session and nursing had already discussed medication option with pt, which pt denied at the time. Pt is agreeable to OT consult. OBJECTIVE: General Observation: Increased edema in (B) UE, (B) LE and pt's (B) UE/LE elevated on pillows. Mental Status: A&Ox3 Pain: c/o pain however pt is unable to quantify. ROM: RUE WFL L UE WFL STRENGTH: RUE 4/5 shoulder flexion, 5/5 elbow, 5/5 parole agent LUE 5/5 throughout SENSATION: Pt intact to light touch and sensation through (B) UE. BALANCE: Static sitting normal Dynamic Sitting normal SPECIAL TESTS: Daily Activity Limitations Standardized Measure [facility] AM -PAC ?6 clicks? Daily Activity Inpatient Short Form: Raw score: 17 Standardized score: 37.26 CMS score: 50.11 % CMS modifier: CK INFORMED CONSENT/EDUCATION: Pt instructed in purpose of OT Consult and plan of care. ASSESSMENT: Patient is a 48-year-old female referred to occupational therapy services with diagnosis of (B) LE and (B) UE edema for management of ADLs and home safety s/p L anterior NORBERTO with fracture, TDWB (L) LE on 10/05/[address] Tineo and re-admitted for (B) UE/LE edema. Patient presents with clinical signs and symptoms consistent with dx, as demonstrated by the following impairment level findings and functional limitations: Decreased functional activity tolerance due to edema, increased pain, pt denies any decrease in functional ADLs and reports that she has OT come in to her home to assist with bathing routine, and/or she sponge baths everyday. Pt was seen for OT consult only, she reports that she doesn't need help with ADLs at this time and has supportive family and friends that can help her as necessary. Pt feels that once her pain and edema is managed that she will be back to her baseline. AMPAC score 17, CMS score 50.11% Patient is assessed as a Moderate [id number] complexity based on the following: History: See Above Examination: See Above Presentation: Evolving Decision Making: AMPAC Score 17, CMS score 50.11% GOALS N/A PLAN OF CARE/TREATMENT PLAN: Pt was seen for OT eval only. DISCHARGE RECOMMENDATIONS Home when medically cleared, currently has home health OT and all DME TREATMENT TIME/MINUTES/CODES IE 25 min (11:30) G Codes in the area of self- : washing oneself, toileting, dressing, eating and drinking, current status GO G8987 CK projected status GO [id number]. Discharge status GO [id number] Based on AMPAC score 17, CMS score 50.11%. Jessica Nassar, OTR/L
--- NOTE | 2018-10-14 14:04 | PT.INTREAT ---
Date of service: 10/14/18 Time of Service: 14:04 PT Notes 10/14/18 SUBJECTIVE: Lina reporting fatigue from lack of sleep last night. She is agreeable to exercises in bed. She has been getting up regularly to use the bathroom. OBJECTIVE: Supine in bed. Agreeable to PT treatment. Therapeutic procedures [id number]: Perform therex in supine as noted on flow sheet including ankle and hand pumps, AROM exercises for the left hip to tolerance as well as UE's for edema reduction. See flow sheet. Direct time: 15 minutes NARINDER Todd, [employer]NACE OPERATOR
--- NOTE | 2018-10-14 14:24 | CHAPLAIN ---
Lina was in bed, wearing dark sunglasses when I visited. (She told me these are prescription sunglasses and she can't find her regular glasses.) Lina said she was offered different pain medication that she didn't want to take, so she know has pain and has been unable ot sleep. She expects that her father will visit later today. She lives in [place] where she grew up. I offered ongoing support.
--- NOTE | 2018-10-14 17:12 | HPE_ITS ---
Date of service: 10/14/18 Time of Service: 17:08 Assessment and Plan (1) Edema: Current visit: Yes Status: Acute Worsening edema in obese woman with increased inactivity with a history of diastolic dysfunction on recent echocardiogram dated 06/02/18 in the setting of mild hypoalbuminemia and possible chronic venous insufficiency. Plan to attempt diuresis while closely monitoring renal function. However, if she fails to respond or if there is doubt surrounding this diagnosis, consider that medications could be contributing to her edema, including chronic NSAID use or Gabapentin. Liver dysfunction could be considered in this obese woman with possible VAZQUEZ, her LFTs are reassuring, however, consideration could be made for liver ultrasound if she does not respond to diuresis. This does not appear to be related to nephrotic syndrome with no protein noted on urinalysis. She received Lasix 60 mg IV BID today, plan to hold her morning dose and assess renal function and edema in the morning prior to the morning dose so proper adjustment can be made at that time. No indication to repeat echocardiogram at this time as she had on 4 months ago and has a normal BMP. Plan to check TSH as hypothyroidism could be another contributing factor. (2) Avascular necrosis of left femoral head: Current visit: Yes Status: Acute With intraoperative femur fracture. Her pain appears to be well controlled. Surgical dressing removed. Continue pain control and PT/OT. (3) DVT prophylaxis: Current visit: Yes Status: Acute She is on Aspirin 81 mg PO BID per orthopedics. (4) Discharge planning issues: Current visit: Yes Status: Acute She is a full code. She returned for failure to thrive at home. Care management is working with her to develop a safe discharge plan. Continue PT. This case was discussed with Dr. Baker who is in agreement. History of Present Illness Chief Complaint: Edema of bilateral upper and lower extremities. Narrative: Lina is a 48 year old female with a history significant for diabetes , hypertension, hyperlipidemia, obesity, anxiety, depression, restless leg syndrome, asthma, GERD, diastolic dysfunction and avascular necrosis of the left femoral head with recent left anterior total hip arthroplasty with cerclage wire fixation of a proximal femur fracture that occurred intraoperatively. She was discharged home from the hospital the day following the procedure on 10/06/18. She presented back to the ED on 10/10/18 with reports of severe pain since her procedure. She had an X-ray at that time to rule out migration of hardware or periprosthetic fracture and the films were unremarkable. She presented back to the ED last night with reports of widespread edema since her previous visit to the ED and failure to thrive at home. In the ED, she had a Duplex venous ultrasound of bilateral lower extremities which did not reveal evidence of DVT. She was admitted by Dr. Tineo, Orthopedics, who preformed her surgery. Dr. Tineo requested a medicine consult for assistance with the management of her edema. Lina reports that she generally has some edema in her lower extremities, but it is significantly worse today. She normally takes Lasix 20 mg PO daily PRN for edema at home. She does note improvement since she had her morning lasix dose, 60 mg IV. She reports putting out significant amounts of urine after the lasix. She did have an echocardiogram in May of 2018, 4 months ago, which revealed an LVEF of 65-70%, with some parameters suggesting diastolic dysfunction, pulmonary systolic pressure was mildly increased in the range of 35-40 mm Hg. Lina reports that she has been fatigued at home and increasingly feeling like she was unable to care for herself. She reports laying down a lot at home and not being particularly active. She feels that her pain is well controlled. She denies nausea as long as she takes zofran with her oxycodone. She is eating and drinking, she feels that her abdomen is bloated. She has not had a bowel movement in 3 days and is requesting bowel medication. She would also like to take a shower. Review of Systems Review of Systems All systems reviewed & are unremarkable except as noted in HPI and below PFSH Anxiety and depression (Acute) Hyperlipidemia (Acute) Chronic pain (Chronic) Diabetes (Chronic) GERD (gastroesophageal reflux disease) (Chronic) Hypertension (Chronic) Obesity (Chronic) Spasm (Chronic) Status post left hip replacement (Acute) Medical History Chronic pain (Chronic) GERD (gastroesophageal reflux disease) (Chronic) Hypertension (Chronic) Spasm (Chronic) Social History caregiver/support person: Yes (Father) household members: family lives independently: Yes Smoking/Tobacco Use Status: Current every day Surgical History Status post left hip replacement (Acute) Social History caregiver/support person: Yes (Father) household members: family lives independently: Yes Smoking/Tobacco Use Status: Current every day Meds Home Medications Medication Instructions Recorded Confirmed Type albuterol sulfate 2 puff INHALATION DAILY PRN 05/01/15 10/13/18 History aripiprazole [Abilify] 30 mg PO HS 05/01/15 10/13/18 History clonazepam 1 mg PO TID 05/01/15 10/13/18 History gabapentin 4 cap PO HS 05/01/15 10/13/18 History telmisartan [Micardis] 40 mg PO HS 05/01/15 10/13/18 History omeprazole 20 mg PO HS 03/07/17 10/13/18 History clonidine HCl 0.1 mg PO DAILY PRN tab-cap 12/01/17 10/13/18 History acetaminophen [Tylenol Arthritis 1,300 mg PO TID PRN 05/21/18 10/13/18 History Pain] baclofen 10 mg PO PRN PRN 05/21/18 10/13/18 History fenofibrate 160 mg PO HS 05/21/18 10/13/18 History fluticasone [Flovent HFA] 2 puff INHALATION BID 05/21/18 10/13/18 History furosemide 1 tab PO DAILY PRN 05/21/18 10/13/18 History metformin 500 mg PO HS 05/21/18 10/13/18 History nystatin 1 applic TOPICAL BID PRN PRN 05/21/18 10/13/18 History atorvastatin 40 mg PO HS #30 tab 05/22/18 10/13/18 Rx nitroglycerin 0.4 mg SUBLINGUAL Q5 MIN PRN X3 05/22/18 10/13/18 Rx PRN #1 tab.subl fluticasone [Flonase Allergy 9.9 ml NS DAILY PRN 07/14/18 10/13/18 History Relief] naproxen 1 tab PO BID 08/12/18 10/13/18 History gabapentin 1 - 2 cap PO PRN PRN 10/05/18 10/13/18 History aspirin 81 mg PO BID #80 tab 10/06/18 10/13/18 Rx docusate sodium [Colace] 100 mg PO BID PRN PRN #0 cap 10/06/18 10/13/18 Rx oxycodone 10 mg tablet 10 mg PO Q4H PRN #20 tab MDD 60mg 10/11/18 10/13/18 Rx ondansetron 4 mg disintegrating 4 mg PO Q8H PRN PRN #20 tab 10/12/18 10/13/18 Rx tablet Allergies Allergy/AdvReac Type Severity Reaction Status Date / Time oxycodone HCl [From Percocet] AdvReac Severe vomiiting Unverified 10/13/18 14:23 amoxicillin AdvReac Intermediate thrush Unverified 10/13/18 14:23 fluoxetine HCl [From Prozac] AdvReac Intermediate Pt states Unverified 10/13/18 14:23 she did not respond well latex AdvReac Unknown Unverified 10/13/18 14:23 adhesive tape AdvReac Rascon Unverified 10/13/18 14:23 STRAWBERRIES Allergy Intermediate Runny Uncoded 10/13/18 14:23 eyes, nose ALL RX PAINKILLERS AdvReac Severe Nausea Uncoded 10/13/18 14:23 Exam Narrative Exam Narrative: General: she is sitting at the edge of the bed, she has sunglasses on, she is in no acute distress. obese. HEENT: normocephalic, atraumatic. Neck: supple without lymphadenopathy. Respiratory: respirations even and unlabored, lung sounds clear to auscultation throughout. Cardiac: regular, nontacycardic, 2/6 murmur noted at the left second intercostal space mid-clavicular. Abdomen: round, mildly distended, nontender on palpation, unable to assess for hepatosplenomegaly. Extremities: mild edema to BUEs, radial pulses palpable. BLEs with 2-3+ pitting edema from feet up through thighs. Surgical dressing to left thigh removed, saturated, minimal erythema at the distal end of the incision, no active drainage, steri-strips intact, pedal pulses palpable bilaterally. TEDs on bilaterally. Neuro: exam nonfocal. Results Labs : 10/13/18 15:05 10/13/18 15:05 Laboratory Results - last 24 hr 10/13/18 17:30 Urine Color Yellow Urine Clarity Clear Urine pH 5.5 Ur Specific [place] 1.015 Urine Protein Negative Urine Ketones Negative Urine Blood Negative Urine Nitrite Negative Urine Bilirubin Negative Urine Urobilinogen 0.2 Ur Leukocyte Esterase Negative Urine Glucose Negative Last Vital Signs Temp 37.2 C 10/14/18 09:20 Pulse 73 10/14/18 09:20 Resp 16 10/14/18 09:20 BP 124/69 10/14/18 09:20 Pulse Ox 93 L 10/14/18 09:20
[2018-10-14] MEDS: Polyethylene Glycol 3350 17 GM PACKET PO (18:16)
[2018-10-14] MEDS: Acetaminophen 325 MG TAB 650 MG PO (18:17)
[2018-10-14 18:22] VITALS: BP 106/62; PULSE 77; RESP 18; TEMP 38.4; O2SAT 90
[2018-10-14] MEDS: Potassium Chloride 20 MEQ TABCR PO (21:01)
[2018-10-14] MEDS: ARIPiprazole 15 MG TAB 30 MG PO (21:01)
[2018-10-14] MEDS: Atorvastatin 40 MG TAB PO (21:01)
[2018-10-14] MEDS: Gabapentin 300 MG CAP 1200 MG PO (21:01)
[2018-10-14] MEDS: Furosemide 100 MG/10 ML VIAL 60 MG IVP (21:02)
[2018-10-14] MEDS: Omeprazole 20 MG CAPCR PO (21:02)
[2018-10-14] MEDS: metFORMIN C.R. 500 MG TABCR PO (21:02)
--- NOTE | 2018-10-14 21:16 | W.PM.PROGNOT ---
Date of Service Date of service: 10/14/18 Time of Service: 10:00 Assessment and Plan (1) Failure to thrive in adult: Current visit: Yes Status: Acute Fanny is a 88-year-old who had a difficult time managing at home due to increasing bilateral upper extremity and lower extremity edema. She did have a proximal femur fracture during her total hip arthroplasty which is also caused increasing amount of swelling, pain, and dysfunction. Nevertheless, I think she is going to improve to be L to get back home. We started physical therapy and occupational therapy consults. Hospice consult was made for her edema and we are aggressively pursuing diuresis. Her labs are all encouraging. Her mobility has been encouraging. Her wound is benign. At this point, we will continue to diurese at the recommendation of the hospitalist with hopeful discharge to home in the next 1-2 days. We will continue to work with therapy services to ensure she will be able to discharge to home safely. If not, we may consider intermediate facility. She will continue with aspirin 81 mg twice daily for DVT prophylaxis. Protected weightbearing on the left leg. Subjective Patient reports: no new complaints and tolerating a regular diet Interval history since last seen: Increased urine output after the IV Lasix. Pain is managed well. No chest pain or shortness of breath. Exam Narrative Exam Narrative: 2+ BUE and 3+BLE edema. LLE dressing c/d/i. No erythema, minimal ecchymosis. No pain to ER/IR/Flexion. Pain to palpation of the thigh. Objective Objective Clinical Data: Vital Signs Temperature 38.4 C H 10/14/18 18:22 Temperature Source Tympanic 10/14/18 18:22 Pulse 77 10/14/18 18:22 Pulse Rhythm Regular 10/14/18 17:06 Respiratory Rate 18 10/14/18 18:22 Respiratory Effort Non-Labored 10/14/18 17:06 Respiratory Depth Normal 10/14/18 17:06 Respiratory Pattern Normal 10/14/18 17:06 Blood Pressure 106/62 10/14/18 18:22 Blood Pressure Position Sitting 10/13/18 13:54 Pulse Oximetry 90 L 10/14/18 18:22 Oxygen Delivery Method Room Air 10/14/18 18:22 Oxygen Flow Rate 0 10/14/18 18:22 Pain Level 9 10/14/18 13:07 Intake & Output 10/13/18 10/14/18 10/14/18 23:59 11:59 23:59 Intake Total 750 / 750 1240 / 1240 Output Total 300 / 300 675 / 675 Balance -300 / -300 750 / 750 565 / 565 Weight 126.2 kg 124.7 kg Intake: IV 20 / 20 Oral 750 / 750 1220 / 1220 Output: Urine 300 / 300 675 / 675 Other: Urine Color Light Ernestine Urine Appearance Clear Clear Clear Urine Odor Normal Comment unknown voided into toilet and flush. Voiding Methods Toilet Toilet Laboratory Results WBC 7.17 k/cumm (4.4-10.8) 10/13/18 15:05 RBC 3.45 m/cumm (4.00-5.20) L 10/13/18 15:05 Hgb 9.2 g/dL (12.0-15.5) L 10/13/18 15:05 Hct 30.5 % (36.0-46.0) L 10/13/18 15:05 MCV 88.4 fL (80-95) 10/13/18 15:05 MCH 26.7 pg (27.0-33.0) L 10/13/18 15:05 MCHC 30.2 g/dL (32.0-36.0) L 10/13/18 15:05 RDW 16.9 % (11.7-14.6) H 10/13/18 15:05 Plt Count 256 x1000/uL (130-400) 10/13/18 15:05 MPV 9.4 fL (8.0-11.0) 10/13/18 15:05 Immature Gran % 0.7 10/13/18 15:05 Neutrophils % 69.4 10/13/18 15:05 Lymphocytes % 21.2 10/13/18 15:05 Monocytes % 5.6 10/13/18 15:05 Eosinophils % 2.8 10/13/18 15:05 Basophils % 0.3 10/13/18 15:05 Absolute Neutrophils 4.98 k/cumm (1.2-6.7) 10/13/18 15:05 Absolute Lymphocytes 1.52 k/cumm (1.2-3.4) 10/13/18 15:05 Absolute Monocytes 0.40 k/cumm (0.11-0.7) 10/13/18 15:05 Absolute Eosinophils 0.20 k/cumm (0.0-0.7) 10/13/18 15:05 Absolute Basophils 0.02 k/cumm (0.0-0.2) 10/13/18 15:05 Sodium 143 mmol/L (136-145) 10/13/18 15:05 Potassium 3.7 mmol/L (3.5-5.1) 10/13/18 15:05 Chloride 103 mmol/L (98-107) 10/13/18 15:05 Carbon Dioxide 32.4 mmol/L (21.0-32.0) H 10/13/18 15:05 Anion Gap 7.6 mmol/L (3-11) 10/13/18 15:05 BUN 17 mg/dL (7-18) 10/13/18 15:05 Creatinine 0.84 mg/dL (0.55-1.02) 10/13/18 15:05 Estimated GFR/1.73 m2 >= 60.00 (mL/min/1.73m2) 10/13/18 15:05 Glucose 109 mg/dL (70-100) H 10/13/18 15:05 Calcium 9.3 mg/dL (8.5-10.1) 10/13/18 15:05 Total Bilirubin 0.4 mg/dL (0.2-1.0) 10/13/18 15:05 AST 25 U/L (15-37) 10/13/18 15:05 ALT 34 U/L (12-78) 10/13/18 15:05 Alkaline Phosphatase 76 U/L (46-116) 10/13/18 15:05 Troponin I 0.02 ng/mL (0.00-0.06) 10/13/18 15:05 NT-Pro-B Natriuret Pep 100 pg/mL (-299) 10/13/18 15:05 Total Protein 6.6 g/dL (6.4-8.2) 10/13/18 15:05 Albumin 3.1 g/dL (3.4-5.0) L 10/13/18 15:05 Urine Color Yellow (Yellow) 10/13/18 17:30 Urine Clarity Clear 10/13/18 17:30 Urine pH 5.5 (5-8) 10/13/18 17:30 Ur Specific [place] 1.015 (1.005-1.025) 10/13/18 17:30 Urine Protein Negative mg/dL (Negative) 10/13/18 17:30 Urine Ketones Negative mg/dL (Negative) 10/13/18 17:30 Urine Blood Negative (Negative) 10/13/18 17:30 Urine Nitrite Negative (Negative) 10/13/18 17:30 Urine Bilirubin Negative (Negative) 10/13/18 17:30 Urine Urobilinogen 0.2 EU/dL (Up TO 0.2) 10/13/18 17:30 Ur Leukocyte Esterase Negative (Negative) 10/13/18 17:30 Urine Glucose Negative mg/dL (Negative) 10/13/18 17:30
[2018-10-15] MEDS: Ketorolac 15 MG/ML VIAL IVP ×2 (01:05→11:55)
[2018-10-15] MEDS: Normal Saline Flush 10 ML SYR IVP ×2 (01:05→11:55)
[2018-10-15 04:23] VITALS: BP 113/62; PULSE 72; RESP 18; TEMP 36.6; O2SAT 93
[2018-10-15 07:25] VITALS: BP 127/74; PULSE 82; RESP 19; TEMP 36.7; O2SAT 91
[2018-10-15 07:48] LABS: HCT 29.4 % (36.0-46.0); HGB 8.8 g/dL (12.0-15.5); Mean Corp. HGB Concentration 29.9 g/dL (32.0-36.0); Mean Corpuscular Hemoglobin 26.6 pg (27.0-33.0); Mean Corpuscular Volume 88.8 fL (80-95); Mean Platelet Volume 9.8 fL (8.0-11.0); Platelet Count 238 x1000/uL (130-400); RBC 3.31 m/cumm (4.00-5.20); RBC Distribution Width 16.7 % (11.7-14.6); White Blood Cell Count 5.92 k/cumm (4.4-10.8)
[2018-10-15 07:59] LABS: Anion Gap 7.5 mmol/L (3-11); BUN 26 mg/dL (7-18); CO2 29.5 mmol/L (21.0-32.0); CREATININE 0.98 mg/dL (0.55-1.02); Calcium 9.3 mg/dL (8.5-10.1); Chloride 103 mmol/L (98-107); Glucose 125 mg/dL (70-100); Potassium 4.1 mmol/L (3.5-5.1); Sodium 140 mmol/L (136-145); TSH (W/Ref FT4) 1.29 uIU/mL (0.358-3.74)
[2018-10-15] MEDS: clonazePAM 1 MG TAB PO ×2 (08:00→13:14)
[2018-10-15] MEDS: Potassium Chloride 20 MEQ TABCR PO (08:00)
[2018-10-15] MEDS: Aspirin E.C. 81 MG TABEC PO (08:00)
--- NOTE | 2018-10-15 08:05 | PT.INTREAT ---
Date of service: 10/15/18 Time of Service: 07:28 PT Notes Inpatient Physical Therapy Treatment Note Date: 10/15/18 PRECAUTIONS: TDWB L LE SUBJECTIVE: Pt lying in bed, states she is tired from going to the bathroom all night. Complains of left wrist burning at IV site, RN notified. States she wants to go home today. OBJECTIVE: General observation: edema improved in bilateral hands and feet this morning. Pain: Complains of left wrist burning at IV site, RN notified Bed Mobility/Transfers: Supine-sit: independent Sit-stand: independent with FWW Stand-sit: independent Sit-supine: independent with leg ship's master Gait: Independent with FWW 80ftx2 in room, TDWB L LE. Steady step through gait pattern. Pt is mobilizing independent to bathroom with FWW throughout the day. Stairs: pt deferred stair training stating I can do the stairs fine at home. Therex: see flow sheet for details Balance: Static Sitting: normal Dynamic Sitting: normal Static Standing: good Dynamic Standing: fair ASSESSMENT: Pt mobilizing well with use of FWW, independent with transfers and gait mobility. Pt should be ready for discharge to home functionally if cleared medically by MD. PLAN: Stair training in pm if agreeable. TREATMENT CODE/TIME: 24 min TAx2 7:28 Jennifer Forte PT
--- NOTE | 2018-10-15 08:11 | PTTR_ITS ---
Date of service: 10/15/18 Time of Service: 07:28 PT Notes Inpatient Physical Therapy Treatment Note Date: 10/15/18 PRECAUTIONS: TDWB L LE SUBJECTIVE: Pt lying in bed, states she is tired from going to the bathroom all night. Complains of left wrist burning at IV site, RN notified. States she wants to go home today. OBJECTIVE: General observation: edema improved in bilateral hands and feet this morning. Pain: Complains of left wrist burning at IV site, RN notified Bed Mobility/Transfers: Supine-sit: independent Sit-stand: independent with FWW Stand-sit: independent Sit-supine: independent with leg president practicing urologist Gait: Independent with FWW 80ftx2 in room, TDWB L LE. Steady step through gait pattern. Pt is mobilizing independent to bathroom with FWW throughout the day. Stairs: pt deferred stair training stating I can do the stairs fine at home. Therex: see flow sheet for details Balance: Static Sitting: normal Dynamic Sitting: normal Static Standing: good Dynamic Standing: fair ASSESSMENT: Pt mobilizing well with use of FWW, independent with transfers and gait mobility. Pt should be ready for discharge to home functionally if cleared medically by MD. PLAN: Stair training in pm if agreeable. TREATMENT CODE/TIME: 24 min TAx2 7:28 Jennifer Forte PT
[2018-10-15] MEDS: Nicotine 14 MG/24 HR PATCH TD (10:09)
[2018-10-15] MEDS: Ondansetron O.D.T. 4 MG TABEF PO (11:02)
[2018-10-15] MEDS: Mometasone 220 MCG 14 DOSE INHALER 2 PUFF IH (11:06)
[2018-10-15] MEDS: Furosemide 40 MG TAB PO (11:55)
[2018-10-15 12:18] LABS: Ferritin 49 ng/mL (8-388)
--- NOTE | 2018-10-15 12:26 | W.PM.DS.N ---
Date of service: 10/15/18 Time of Service: 12:26 DS: Diagnosis Discharge Diagnosis (1) Failure to thrive in adult: Status: Acute Discharge Plan Disposition Patient Disposition: HOME W/HOME HEALTH SERVICE Condition: Good Discharge Details Chief Complaint: Vascular Clinical Impression: Adult failure to thrive, Edema Reason For Visit: FAILURE TO THRIVE, EDEMA Admit Date/Time: 10/13/18 16:42 Admit Provider: Diallo Tineo Attending Provider: Diallo Tineo Primary Care Provider: Ivanna Way ED Provider: Eber Cooper Hospital Course Hospital Course: Lina was admitted to the medical surgical floor for observation. She was started on IV diuretics. She had an increase in her urine output and a resolution of her upper extremity edema with an improvement of her lower extremity edema. She worked with occupational and physical therapy and was deemed improved to return home. She felt safe to return home. Her labs are unremarkable. She did have one fever 38.4 x 1 but this resolved. Her pain was controlled with the oral oxycodone. She will discharged home with close follow-up by myself and her primary care doctor. Home Meds and New Rx's Prescriptions: New furosemide 40 mg Tablet 40 mg PO BID@0830,1600 Qty: 20 RF: 0 polyethylene glycol 3350 17 gram Powder In Packet 17 g PO BID PRN PRNQty: 0 RF: 0 celecoxib 200 mg capsule 200 mg PO BID PRN (Reason: pain) Qty: 60 RF: 1 Continue clonidine HCl 0.1 MG tablet 0.1 mg PO DAILY PRNRF: 0 fluticasone [Flonase Allergy Relief] 9.9 ML spray,suspension 9.9 ml NS DAILY PRNRF: 0 ondansetron 4 mg tablet,disintegrating 4 mg PO Q8H PRN PRN (Reason: nausea and vomiting) Qty: 20 RF: 3 clonazepam 1 MG tablet 1 mg PO TID RF: 0 telmisartan [Micardis] 40 MG tablet 40 mg PO HS RF: 0 gabapentin 300 MG capsule 4 cap PO HS RF: 0 albuterol sulfate 8.5 GM HFA aerosol inhaler 2 puff Inhalation DAILY PRNRF: 0 aripiprazole [Abilify] 30 MG tablet 30 mg PO HS RF: 0 omeprazole 20 MG capsule,delayed release(DR/EC) 20 mg PO HS RF: 0 acetaminophen [Tylenol Arthritis Pain] 650 MG tablet extended release 1,300 mg PO TID PRNRF: 0 baclofen 10 MG tablet 10 mg PO PRN PRNRF: 0 nystatin 15 GM cream 1 applic Topical BID PRN PRNRF: 0 fenofibrate 160 MG tablet 160 mg PO HS RF: 0 fluticasone [Flovent HFA] 120 PUFF/INH HFA aerosol inhaler 2 puff Inhalation BID RF: 0 metformin 500 MG tablet extended release 24hr 500 mg PO HS RF: 0 nitroglycerin 0.4 MG tablet, sublingual 0.4 mg Sublingual Q5 MIN PRN X3 PRNQty: 1 RF: 0 atorvastatin 40 MG tablet 40 mg PO HS Qty: 30 RF: 0 aspirin 81 mg Tablet,Delayed Release (Dr/Ec) 81 mg PO BID Qty: 80 RF: 0 docusate sodium [Colace] 100 mg Capsule 100 mg PO BID PRN PRN (Reason: Constipation) Qty: 0 RF: 0 oxycodone 10 mg tablet 10 mg PO Q4H MDD 60mg PRN (Reason: pain) Qty: 14 RF: 0 Discontinued furosemide 20 MG tablet 1 tab PO DAILY PRNRF: 0 gabapentin 300 mg Capsule 1 - 2 cap PO PRN PRNRF: 0 naproxen 375 mg Tablet 1 tab PO BID RF: 0 Discharge Instructions Additional Instructions: Dr. Tineo?s Total Hip Discharge Instructions Activity: The most important activity is to walk. You should try to take short walks a few times a day. You should use the walker at all times to offload the hip. - You should wear the CLAUS hose on both legs for 4 weeks. Dressing: You should keep some light gauze on the incision making sure to keep it dry. It may get wet but make sure to dry completely and cover it with a light gauze afterwards. It is important to always keep some gauze between skin folds, especially when you are sitting. Spend some time with the wound exposed when you are lying flat as the incision does wrinkle onto itself. Medications: - You should take Tylenol and an anti-inflammatory Celebrex as your primary pain control medications - You have been prescribed a stronger pain medication oxycodone for breakthrough pain, take as needed as prescribed. - You should continue a stomach acid reduction agent omeprazole to help reduce stomach acid and reflux. - You will be taking aspirin 81mg twice a day for DVT prevention unless instructed otherwise. - If you have constipation you should take Colace or Miralax (both [id number]). It takes most people 3-4 days to have a bowel movement. -You have been started on Lasix 40 mg twice a day. This will be adjusted by myself and your primary care doctor. Follow-up: Thursday Stand Alone Forms: Nursing Discharge Form Referrals: Ivanna Way [Primary Care Provider] - Activity:: Activity as Tolerated Equipment/Supplies:: No Equipment Needed Diet:: As Tolerated Discharge Orders Discharge Orders: Discharge Order (Routine); Ordered 10/15/18 Ordered By: Diallo Tineo Other Ambulatory Orders: Basic Metabolic Panel (Routine) Timeframe: 1 Week Facility: [facility] - Location: Laboratory Outpatient Ordered By: Diallo Tineo Complete Blood Count No Diff (Routine) Timeframe: 1 Week Facility: [facility] - Location: Laboratory Outpatient Ordered By: Diallo Tineo DS: Data Vitals/I&O Vitals and I&O: Vital Signs Temperature 36.7 C 10/15/18 07:25 Temperature Source Tympanic 10/15/18 07:25 Pulse 82 10/15/18 07:25 Pulse Rhythm Regular 10/15/18 08:04 Respiratory Rate 19 10/15/18 07:25 Respiratory Effort Non-Labored 10/15/18 08:04 Respiratory Depth Normal 10/15/18 08:04 Respiratory Pattern Normal 10/15/18 08:04 Blood Pressure 127/74 10/15/18 07:25 Blood Pressure Position Sitting 10/13/18 13:54 Pulse Oximetry 91 L 10/15/18 07:25 Oxygen Delivery Method Room Air 10/15/18 07:25 Oxygen Flow Rate 0 10/15/18 07:25 Pain Level 5 10/15/18 11:55 Intake & Output 10/14/18 10/15/18 10/15/18 23:59 11:59 23:59 Intake Total 1260 / 1260 125 / 125 Output Total 675 / 675 Balance 585 / 585 125 / 125 Weight 124.8 kg Intake: IV 40 / 40 Oral 1220 / 1220 125 / 125 Output: Urine 675 / 675 Other: Urine Color Light Ernestine Urine Appearance Clear Clear Urine Odor Normal Comment lg void in toilet, hat had been removed, measuring hat back in toilet, instructed pt to void in hat in order to measure output. pt verbalized understanding. Voiding Methods Toilet Labs on day of discharge: Labs from last 24 hours 10/15/18 10/15/18 10/15/18 11:45 11:45 11:45 WBC RBC Hgb Hct MCV MCH MCHC RDW Plt Count MPV Sodium Potassium Chloride Carbon Dioxide Anion Gap BUN Creatinine Estimated GFR/1.73 m2 Glucose Calcium Magnesium Iron Pending TIBC Pending Transferrin % Sat Pending Ferritin 49 Vitamin B12 Pending Folate Pending TSH 10/15/18 10/15/18 06:20 06:20 WBC 5.92 RBC 3.31 L Hgb 8.8 L Hct 29.4 L MCV 88.8 MCH 26.6 L MCHC 29.9 L RDW 16.7 H Plt Count 238 MPV 9.8 Sodium 140 Potassium 4.1 Chloride 103 Carbon Dioxide 29.5 Anion Gap 7.5 BUN 26 H D Creatinine 0.98 Estimated GFR/1.73 m2 >= 60.00 Glucose 125 H Calcium 9.3 Magnesium 2.0 Iron TIBC Transferrin % Sat Ferritin Vitamin B12 Folate TSH 1.29 PFSH Anxiety and depression (Acute) Hyperlipidemia (Acute) Chronic pain (Chronic) Diabetes (Chronic) GERD (gastroesophageal reflux disease) (Chronic) Hypertension (Chronic) Obesity (Chronic) Spasm (Chronic) Status post left hip replacement (Acute) Medical History Chronic pain (Chronic) GERD (gastroesophageal reflux disease) (Chronic) Hypertension (Chronic) Spasm (Chronic) Social History caregiver/support person: Yes (Father) household members: family lives independently: Yes Smoking/Tobacco Use Status: Current every day Surgical History Status post left hip replacement (Acute) Social History caregiver/support person: Yes (Father) household members: family lives independently: Yes Smoking/Tobacco Use Status: Current every day
[2018-10-15 12:35] LABS: Folate 6.9 ng/mL (8.6-20.0); Vitamin B12 397 pg/mL (193-986)
[2018-10-15 12:36] LABS: Iron 47 ug/dL (50-175); Total Iron Binding Capacity 390 ug/dL (250-450); Transferrin Sat 12 % (15-50)
--- NOTE | 2018-10-15 12:37 | CMDISCH_ITS ---
- If Service Date Differs Date of service: 10/15/18 Time of Service: 12:35 LACE Index Scoring Tool - Questions: Length of Stay (in days): 3 Acuity (Admit via E.D.?): Yes E.D. Visits: 7 - Answers: Total Score: 10 Risk of Readmission: High Risk Care Management Discharge Reason for Hospitalization: Failure to Thrive. Discharge Plan: Lina will discharge home when medically ready per MD. Anticipate patient will discharge with a resumption of home health services (PT ) and follow up with surgical services. Lina will transport via private vehicle with her father. Patient/Family Education Needs: Discharge education, any limitations, and follow up plan of care. Ask Me Three discussion. Services Needed at Discharge: Home Health Care Services, Physical Therapy ( Resumption of home health services; PT. )
[2018-10-15] MEDS: oxyCODONE 10 MG TAB PO (13:13)
--- NOTE | 2018-10-15 15:04 | PT.INDS ---
Date of service: 10/15/18 Time of Service: 15:04 PT Notes Inpatient Physical Therapy Discharge Summary Date: 10/15/18 Dates of Service: 10/14/18-10/15/18 SUBJECTIVE: NT OBJECTIVE: 10/14/18-10/15/18 Bed Mobility/Transfers: Supine-sit:independent with use leg breakfast bar attendant Sit-stand: independent with FWW Stand-sit: independent Sit-supine: independent with leg breakfast bar attendant Gait: independent with FWW 80ftx2 TDWB L LE. Balance: Static Sitting: normal Dynamic Sitting: normal Static Standing: good Dynamic Standing: fair Assessment: Pt is a 48yr old female s/p left anterior total hip arthroplasty by Dr. 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 Patient was seen for 2 PT visits, progressed from supervision gait with FWW 30ftx2 and independent gait with FWW 80ftx2, static standing balance improved from fair to good. Pt is discharged to home setting, recommend home PT. Goals: Goals X1 week 1. Supine-Sit : independent 2. Sit-Supine : independent 3. Sit-Stand : supervision with FWW 4. Stand-Sit : supervision 5. Bed-Chair : SBA with FWW 6. Chair-Bed : SBA with FWW 7. Gait : SBA with FWW 75ft WBAT L LE 8. Stairs : up/down 10 steps with railing, SBA WBAT L LE 9. Independent with home exercise program Pt met goals 1, 2, 3, 4, 5, 6, 7, 9 DISCHARGE RECOMMENDATIONS: Home, pt has all DME G Codes in the area mobility of walking and moving around: projected status GP [id number]. Discharge status (if discharging) GP [id number] CK Jennifer Forte PT
--- NOTE | 2018-10-15 15:08 | INDS_ITS ---
Date of service: 10/15/18 Time of Service: 15:04 PT Notes Inpatient Physical Therapy Discharge Summary Date: 10/15/18 Dates of Service: 10/14/18-10/15/18 SUBJECTIVE: NT OBJECTIVE: 10/14/18-10/15/18 Bed Mobility/Transfers: Supine-sit:independent with use leg crib clerk Sit-stand: independent with FWW Stand-sit: independent Sit-supine: independent with leg crib clerk Gait: independent with FWW 80ftx2 TDWB L LE. Balance: Static Sitting: normal Dynamic Sitting: normal Static Standing: good Dynamic Standing: fair Assessment: Pt is a 48yr old female s/p left anterior total hip arthroplasty by Dr. 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 Patient was seen for 2 PT visits, progressed from supervision gait with FWW 30ftx2 and independent gait with FWW 80ftx2, static standing balance improved from fair to good. Pt is discharged to home setting, recommend home PT. Goals: Goals X1 week 1. Supine-Sit : independent 2. Sit-Supine : independent 3. Sit-Stand : supervision with FWW 4. Stand-Sit : supervision 5. Bed-Chair : SBA with FWW 6. Chair-Bed : SBA with FWW 7. Gait : SBA with FWW 75ft WBAT L LE 8. Stairs : up/down 10 steps with railing, SBA WBAT L LE 9. Independent with home exercise program Pt met goals 1, 2, 3, 4, 5, 6, 7, 9 DISCHARGE RECOMMENDATIONS: Home, pt has all DME G Codes in the area mobility of walking and moving around: projected status GP [id number]. Discharge status (if discharging) GP [id number] CK Jennifer Forte PT
== END 2018-10-15 14:22 | disposition home health service (06) ==
LOC: ER 17:42 → MS 10-14 09:59
PROVIDERS: Nurse Practitioner; Admitting Provider Student in an Organized Health Care Education/Training Program; Emergency Provider Student in an Organized Health Care Education/Training Program; PCP Nurse Practitioner Family; Visit Provider Student in an Organized Health Care Education/Training Program
DX: R62.7 Adult failure to thrive; R60.0 Localized edema; G89.18 Other acute postprocedural pain; Z96.642 Presence of left artificial hip joint; E11.9 Type 2 diabetes mellitus without complications; I10 Essential (primary) hypertension; E78.5 Hyperlipidemia, unspecified; M66.9 Spontaneous rupture of unspecified tendon
CPT/HCPCS: 36415; 80048; 80053; 85027; 93005; 94640; 96374; 96375; 97162; 97166; 97530; 99222; 99233; 99238; 99253; 99285; 81003; 82607; 82728; 82746; 83540; 83550; 83735; 83880; 84443; 84484; 85025; 93010; 93970; 99219; 99284; G0378; J1885; J1940; J1941; J2405

== ENCOUNTER 2018-10-18 10:57 | Outpatient (CLI) | payer BC, SELFPAY ==
--- NOTE | 2018-10-18 10:49 | DI.RAD_ITS ---
SYMPTOM/DIAGNOSIS: F/U LT NORBERTO LEFT HIP AND PELVIS: Comparison is made with 10/10/18. There is again seen a lucency just beneath the lesser trochanter in the proximal left femur. It is unchanged compared to the prior examination. A nondisplaced fracture cannot be excluded. No new fracture or dislocation is seen. The patient has bilateral total hip replacements. Orthopedic hardware appear in good position. No evidence of hardware failure is seen. There are two cerclage wires seen about the proximal left femur. Soft tissues are unremarkable. IMPRESSION: Stable left hip and pelvis. Stable lucency seen in the proximal left femur. A nondisplaced fracture cannot be excluded.
== END 2018-10-18 11:17 ==
PROVIDERS: PCP Nurse Practitioner Family; Visit Provider Physician Assistant
DX: Z96.642 Presence of left artificial hip joint (principal); Z47.1 Aftercare following joint replacement surgery; M85.862 Other specified disorders of bone density and structure, left lower leg
CPT/HCPCS: 73502

== ENCOUNTER 2018-11-01 10:56 | Outpatient (CLI) | payer BC, SELFPAY ==
--- NOTE | 2018-11-01 10:35 | DI.RAD_ITS ---
SYMPTOMS/DIAGNOSIS: F/U LEFT NORBERTO WITH FRACTURE FIXATION LEFT HIP AND PELVIS: Comparison is 10/18/18. There are again seen postsurgical changes of bilateral total hip replacements. Cerclage wires are seen around the proximal left femur. The fracture line seen on the prior examination inferior to the left lesser trochanter is not well seen on the current examination. No new fractures or dislocations are present.
== END 2018-11-01 11:16 ==
PROVIDERS: PCP Nurse Practitioner Family; Visit Provider Student in an Organized Health Care Education/Training Program
DX: S72.002D Fracture of unspecified part of neck of left femur, subsequent encounter for closed fracture with routine healing (principal); Z96.643 Presence of artificial hip joint, bilateral; Z47.1 Aftercare following joint replacement surgery
CPT/HCPCS: 73502

== ENCOUNTER 2018-11-03 10:50 | Observation (INO) | payer BC, SELFPAY ==
[2018-11-03 11:22] VITALS: BP 134/79; PULSE 82; RESP 20; TEMP 36.9; O2SAT 97
[2018-11-03 11:35] LABS: HCT 30.5 % (36.0-46.0); Mean Corp. HGB Concentration 29.5 g/dL (32.0-36.0); Mean Corpuscular Hemoglobin 25.2 pg (27.0-33.0); Mean Corpuscular Volume 85.4 fL (80-95); Mean Platelet Volume 9.8 fL (8.0-11.0); Platelet Count 190 x1000/uL (130-400); RBC 3.57 m/cumm (4.00-5.20); RBC Distribution Width 16.8 % (11.7-14.6)
[2018-11-03 11:46] LABS: Anion Gap 8.8 mmol/L (3-11); BUN 16 mg/dL (7-18); C-Reactive Protein 1.24 mg/dL (0.0-0.3); CO2 29.2 mmol/L (21.0-32.0); Calcium 9.1 mg/dL (8.5-10.1); Chloride 105 mmol/L (98-107); Glucose 99 mg/dL (70-100); Potassium 3.7 mmol/L (3.5-5.1); Sodium 143 mmol/L (136-145)
[2018-11-03] MEDS: Ketorolac 15 MG/ML VIAL IVP ×3 (12:13→21:06)
[2018-11-03 12:18] VITALS: BP 134/79; PULSE 82; RESP 20; TEMP 36.9; O2SAT 97
--- NOTE | 2018-11-03 12:32 | HPE_ITS ---
Date of service: 11/03/18 Time of Service: 12:22 Assessment and Plan (1) Uncontrolled pain: Current visit: Yes Status: Acute Fanny is admitted today due to a increasing and uncontrolled pain of the left hip. She is unable to thrive at home with difficulties in ambulation and also with basic activities of daily living. She has tried various concoctions of medications and has found the oxycodone to be the most helpful. She tries to take it regularly but still is unable to find pain relief. She was seen on Thursday without any significant change in her x-rays. Therefore, I must also consider infection as being a source of the pain although her C-reactive protein is only mildly elevated she has no other systemic or cutaneous findings suggestive except for pain. (2) History of total left hip replacement: Current visit: No Status: Chronic Lina is status post hip replacement with intraoperative fracture. X-rays performed 2 days prior do not show any significant change in positioning of any of the components. There is been no further displacement of the fracture. We will continue to partial weight-bear with assistive devices at all times. We will continue the aspirin for DVT prophylaxis as long as she is mobilizing. As noted above, we will consider infection and perform an aspiration of the left hip today. (3) Fracture of proximal end of left femur: Current visit: No Status: Acute She did suffer an intraoperative fracture of the left femur. X-rays show that the seat appears to be healing. However, given the increase in pain if the aspiration is negative for infection I would consider CT scan to evaluate for any subtle changes may be responsible for increase in pain. Qualifiers: Encounter type: subsequent encounter Fracture type: closed Open fracture type: Fracture healing: with routine healing Qualified Code(s): S72.002D - Fracture of unspecified part of neck of left femur, subsequent encounter for closed fracture with routine healing (4) Failure to thrive in adult: Current visit: No Status: Acute Lina continues to struggle at home. Today's admission is due to pain and inability to thrive at home. I will order physical therapy and Occupational Therapy consults. We will investigate hip to make sure there are no modifiable sources of the pain. I will also work on pain control. She may need to consider a [place] [facility] facility to transition to before going home again. I will discussed this with her and involve the care management team. History of Present Illness Chief Complaint: Left Hip Pain Narrative: Lina is a 48-year-old who is status post left hip replacement with unfortunate intraoperative fracture of the proximal femur fixed with cerclage cabling. She has been protected w eightbearing although she has not been able to modulate any of the weight that she placed onto the left leg. I have been seeing her regularly for her left hip. There is been no sign of acute failure of the hip prosthesis fracture construct. However, I saw her on Thursday with an increase in pain after moving awkwardly in bed 5 days prior. She still complains of persistent pain. She has not found medications to be very helpful. She denies fevers or chills. She still has swelling in both legs, worse than the left. She denies chest pain or shortness of breath. She denies any GI upset except for some nausea associated with the use of the oxycodone. She did try the hydromorphone at home but felt that it was not helpful at all. She denies any shortening or malrotation of the leg. She has been ambulate although with pain. She has much less pain if she is sitting still. Review of Systems Review of Systems All systems reviewed & are unremarkable except as noted in HPI and below PFSH Medical History Anxiety and depression (Acute) Hyperlipidemia (Acute) Chronic pain (Chronic) Diabetes (Chronic) GERD (gastroesophageal reflux disease) (Chronic) Hypertension (Chronic) Obesity (Chronic) Spasm (Chronic) Surgical History Status post right hip replacement (Chronic) Status post left hip replacement (Acute) Social History caregiver/support person: Yes (Father) household members: family lives independently: Yes Smoking/Tobacco Use Status: Current every day Meds Home Medications Medication Instructions Recorded Confirmed Type albuterol sulfate 2 puff INHALATION DAILY PRN 05/01/15 11/03/18 History aripiprazole [Abilify] 30 mg PO HS 05/01/15 11/03/18 History clonazepam 1 mg PO TID 05/01/15 11/03/18 History gabapentin 4 cap PO HS 05/01/15 11/03/18 History telmisartan [Micardis] 40 mg PO HS 05/01/15 11/03/18 History omeprazole 20 mg PO HS 03/07/17 11/03/18 History clonidine HCl 0.1 mg PO DAILY PRN tab-cap 12/01/17 11/03/18 History Flovent HFA 2 puff INHALATION BID 05/21/18 11/03/18 History acetaminophen [Tylenol Arthritis 1,300 mg PO TID PRN 05/21/18 11/03/18 History Pain] baclofen 10 mg PO PRN PRN 05/21/18 11/03/18 History fenofibrate 160 mg PO HS 05/21/18 11/03/18 History metformin 500 mg PO HS 05/21/18 11/03/18 History nystatin 1 applic TOPICAL BID PRN PRN 05/21/18 11/01/18 History atorvastatin 40 mg PO HS #30 tab 05/22/18 11/03/18 Rx nitroglycerin 0.4 mg SUBLINGUAL Q5 MIN PRN X3 05/22/18 11/03/18 Rx PRN #1 tab.subl fluticasone [Flonase Allergy 9.9 ml NS DAILY PRN 07/14/18 11/03/18 History Relief] aspirin 81 mg PO BID #80 tab 10/06/18 11/03/18 Rx furosemide 40 mg PO BID@0830,1600 #20 tab 10/15/18 11/03/18 Rx polyethylene glycol 3350 17 g PO BID PRN PRN #0 ea 10/15/18 11/03/18 Rx docusate sodium 100 mg capsule 100 mg PO BID PRN PRN #10 cap 10/18/18 11/03/18 Rx celecoxib 200 mg capsule 200 mg PO BID PRN #60 cap 11/01/18 11/03/18 Rx cyclobenzaprine 5 mg tablet 5 mg PO TID PRN #10 tab 11/01/18 11/03/18 Rx hydromorphone 2 mg tablet 2 - 4 mg PO Q4H PRN #24 tab MDD 11/01/18 11/03/18 Rx 16mg ondansetron 4 mg disintegrating 4 mg PO Q8H PRN PRN #20 tab 11/01/18 11/03/18 Rx tablet Allergies Allergy/AdvReac Type Severity Reaction Status Date / Time oxycodone HCl [From Percocet] AdvReac Severe vomiiting Unverified 11/01/18 10:54 amoxicillin AdvReac Intermediate thrush Unverified 11/01/18 10:54 fluoxetine HCl [From Prozac] AdvReac Intermediate Pt states Unverified 11/01/18 10:54 she did not respond well latex AdvReac Unknown Unverified 11/01/18 10:54 adhesive tape AdvReac Rascon Unverified 11/01/18 10:54 STRAWBERRIES Allergy Intermediate Runny Uncoded 11/01/18 10:54 eyes, nose ALL RX PAINKILLERS AdvReac Severe Nausea Uncoded 11/01/18 10:54 Exam Const General: cooperative, healthy appearing, comfortable and no acute distress Nutritional Appearance: obese Orientation: alert, awake and oriented x3 HENMT Head: normal to inspection and normocephalic Extrem Other: Evaluation of the left hip shows a well approximated incision. There is no defect incision. There is no erythema. There is fullness of the left thigh but no area of fluctuance. The entire leg from the groin fold down to the foot is swollen. There is edema noted throughout. There is some mild tenderness to palpation throughout the proximal lateral hip but no exquisite source of pain. With the leg in an extended position she tolerates internal and external rotation, logrolling, of the hip without any significant increase in pain. She does not relax very much but I am able to flex, extend and rotate, and entered internally rotate the leg although she does start to have some pain with a greater arc of motion. She is reluctant to actively flex the left hip. There is no increase in warmth. No pain with range of motion of the left knee. Some generalized decreased sensation in the foot but specifically no numbness over the superficial and deep peroneal nerves or tibial nerve. Some slight decreased sensation around the incision and just distal to it over the lateral left thigh. Results Labs : 11/03/18 11:23 11/03/18 11:23 Laboratory Results - last 24 hr 11/03/18 11/03/18 11:23 11:23 WBC 6.50 RBC 3.57 L Hgb 9.0 L Hct 30.5 L MCV 85.4 MCH 25.2 L MCHC 29.5 L RDW 16.8 H Plt Count 190 MPV 9.8 Sodium 143 Potassium 3.7 Chloride 105 Carbon Dioxide 29.2 Anion Gap 8.8 BUN 16 Creatinine 0.80 Estimated GFR/1.73 m2 >= 60.00 Glucose 99 Calcium 9.1 C-Reactive Protein 1.24 H Last Vital Signs Temp 36.9 C 11/03/18 11:22 Pulse 82 11/03/18 11:22 Resp 20 11/03/18 11:22 BP 134/79 11/03/18 11:22 Pulse Ox 97 11/03/18 11:22
--- NOTE | 2018-11-03 13:24 | DI.RAD_ITS ---
SYMPTOMS/DIAGNOSIS: LEFT TOTAL HIP ARTHROPLASTY PAIN, ? INFECTION EXAMINATION OF THE LEFT HIP: Fluoroscopy Time: 4 sec A left hip prosthesis is noted in good position. A needle is projected over the superior portion of the prosthetic device where a joint aspiration was carried out. Please see Dr. Tineo's procedure report for further information.
[2018-11-03] MEDS: Omnipaque 300 MG/ML 10 ML BTL IJ (13:26)
[2018-11-03] MEDS: Bupivacaine 0.5% Pres-Free 10 ML VIAL 5 ML IJ (13:26)
[2018-11-03 14:16] LABS: Clarity CLOUDY; Mononuclear Cells 21 % (0-0); Nucleated Cells 1692 /MM3 (0-0); Polynuclear Cells 79 % (0-0)
[2018-11-03] MEDS: clonazePAM 1 MG TAB PO ×2 (14:34→19:39)
[2018-11-03] MEDS: Acetaminophen 500 MG TAB 1000 MG PO ×2 (14:34→19:39)
[2018-11-03] MEDS: Furosemide 20 MG TAB 60 MG PO (15:55)
[2018-11-03] MEDS: Normal Saline Flush 10 ML SYR (15:56)
[2018-11-03] MEDS: Normal Saline Flush 10 ML SYR IVP ×5 (16:07→21:07)
[2018-11-03 16:50] VITALS: BP 144/78; PULSE 75; RESP 16; TEMP 37.4; O2SAT 94
[2018-11-03] MEDS: Aspirin E.C. 81 MG TABEC PO (19:39)
[2018-11-03] MEDS: Baclofen 10 MG TAB PO (19:39)
[2018-11-03] MEDS: Mometasone 220 MCG 14 DOSE INHALER 1 PUFF IH (21:06)
[2018-11-03] MEDS: Gabapentin 300 MG CAP 1200 MG PO (21:06)
[2018-11-03] MEDS: Atorvastatin 40 MG TAB PO (21:09)
[2018-11-03] MEDS: ARIPiprazole 15 MG TAB 30 MG PO (21:09)
[2018-11-03] MEDS: metFORMIN 500 MG TAB PO (21:09)
[2018-11-03] MEDS: Omeprazole 20 MG CAPCR PO (21:09)
[2018-11-03 23:03] VITALS: BP 147/88; PULSE 76; RESP 18; TEMP 37.1; O2SAT 95
[2018-11-04] MEDS: Ketorolac 15 MG/ML VIAL IVP ×4 (03:08→21:36)
[2018-11-04] MEDS: Normal Saline Flush 10 ML SYR IVP ×6 (03:09→21:34)
[2018-11-04] MEDS: Ondansetron O.D.T. 4 MG TABEF PO ×2 (03:14→13:17)
[2018-11-04] MEDS: oxyCODONE 5 MG TAB PO ×3 (03:14→12:53)
[2018-11-04 04:29] VITALS: BP 122/73; PULSE 67; RESP 18; TEMP 36.8; O2SAT 94
--- NOTE | 2018-11-04 07:00 | DI.CT_ITS ---
SYMPTOM/DIAGNOSIS: EVAL FRACTURE HEALING, S/P TKA AND FRACTURE LEFT HIP CT: The study was conducted according to the usual protocol without contrast enhancement. The patient is status post THR. The prosthesis is well seated with no evidence of a fracture or dislocation. Cerclage wiring involving the proximal femur at the level of the prosthetic stem is demonstrated. There is no evidence of bony destruction or a localized bony mass or sclerosis. Evaluation of the soft tissues reveals considerable hyperemia involving the subcutaneous fat down to the level of the fascia, there is no demonstrated gross mass or fluid collection involving the underlying musculature about the hip and left philomena-pelvis. Further evaluation with a leg ultrasound might be of value to exclude the possibility of deep venous thrombosis in this patient. These findings were discussed with Dr. Tineo following completion of the examination.
[2018-11-04 07:32] VITALS: BP 119/71; PULSE 65; RESP 19; TEMP 36.6; O2SAT 95
--- NOTE | 2018-11-04 07:32 | PDOC.CMIN ---
- If Service Date Differs Date of service: 11/04/18 Time of Service: 07:32 Care Management Initial Assess REASON FOR HOSPITALIZATION:: Uncontrollable pain of left hip. PAST MEDICAL HISTORY/PAST SURGICAL HISTORY:: Anxiety, depression, diabetes, GERD, hyperlipidemia, hypertension, obesity, chronic pain, fracture proximal end left femur, avascular necrosis of left femoral head. Surgical hx: Left hip replacement (10/05/18), right hip replacement. PREVIOUS FUNCTIONAL STATUS/SOCIAL/FAMILY SUPPORTS:: Lina resides in [place], [place] with her father. 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 She recently sold her home and reportedly plans to move to [place] following her recovery from surgery. Lina is independent with her ADLs and transportation, and has OT services 1x/week for assistance with showering and PT home health services (3x/week). Lina had a total knee surgery on 10/05/[address] Tineo. She was re-admitted on 10/13 for 'failure to thrive' and is back at the hospital at this time due to uncontrollable pain. CURRENT FUNCTIONAL STATUS:: Lina is sitting in her chair when CM visits this morning. She is engaged in conversation, makes good eye contact, and is talkative. Lina has had a CT of her lower extremities and an ultrasound this morning, both of which she is awaiting results on. Yesterday she went to the OR with Dr. Tineo for aspiration. Lina is teary today and reports that she is not happy living with her father and is only able to cook in one pot (she reports she is not able to stand long enough to cook and do dishes). She reports that her father yells at her a lot, and with a new girlfriend, is out of the house often. Lina reports that she is alone much of the time and is very discouraged with the continual complications from this recent surgery. Lina reports that she had complications with her first hip surgery as well. Lina has been working with PT at [facility] and will continue to do so. Lina and CM discussed 'next steps' for discharge and what that might look like. Lina has a couple local friends but none that she can live with. She reports that she has money but all the rentals she has looked at require a year long lease, which she is not willing to sign. Lina continues to plan a move to [place] following her recovery. Lina and CM talked about SNF possibilities (as MD mentioned the idea to Lina). CM will continue to follow and assist as needed with planning. ADVANCE DIRECTIVES:: On file at [facility]. Health Care Agent; Haroldo Gates. Has patient been provided with information about the portal?: Yes Did the patient sign up for the portal?: No CODE STATUS:: Full Code INSURANCE COVERAGE / FINANCIAL ISSUES:: Blue Cross Blue [facility]. CURRENT HOME/COMMUNITY SERVICES/EQUIPMENT:: PT/OT; [facility]- 3x/week, OT 1x/week for showering assistance. FWW. PRIMARY CARE PHYSICIAN:: Ivanna Way. POTENTIAL DISCHARGE NEEDS:: Follow up appointment with surgical services, coordination of increased services support vs. SNF short term rehab. PATIENT/FAMILY EDUCATION NEEDS:: Discharge education, any limitations, and follow up plan of care. Ask Me Three discussion. ANTICIPATED BARRIERS TO DISCHARGE:: No anticipated barrier to discharge identified. TRANSPORTATION:: Lina will transport via private vehicle with her father. PLAN:: Lina will discharge home vs. SNF when ready per MD. She will follow up with her PCP and Dr. Tineo as well as her plan of care including medication recommendations and activity restrictions. She will have resumption of services for [facility] PT/OT services. CM will continue to offer support to patient and care team regarding discharge planning and disposition. Readmission - Within the Past 30 Days Yes or No: Y - Date of First Admission Date of 1st Admission: 10/13/18 - Date of this Admission Date of Admission: 11/03/18 This admission was: Through ED - Speicalist Appointments Have you seen any other specialist since your 1st Admission?: Yes Date you saw the Specialist: 11/01/2018 Specialist Seen: Surgical services; Dr. Tineo. - I. Interview patient and/or Family Difficulty reaching your doctor or getting an office appt?: No Have you had trouble purchasing/ or taking medication?: Yes Describe barriers fpr purchasing or taking medication: No barriers to purchasing medications, however patient has admittedly not been compliant with taking prescribed meds. Have you had trouble with getting meals at home?: Yes Describe your typical meals since you have been home: One pot meals. Patient reports that she is unable to stand at the stove and cook for long times and is unable to do dishes. Did you feel ready for discharge when you left the last time: Yes Were services received that you thought were set up on disch: Yes What services were received?: PT/OT with [facility], 1x/week OT for showering assistance. Did you call your physician beore you came to the ED?: Yes Did your physician tell you to come in?: Yes - If the patient had a VNA ordered Did the patient have a VNA order?: Yes Did you call the VNA before you came?: No (Spoke with them following admission. ) Did the VNA tell you to come to the hospital?: No Do you know if the [facility]NA called your physician?: No
[2018-11-04] MEDS: Fluticasone NASAL SPRAY 16 GM BTL NS (07:52)
[2018-11-04] MEDS: Acetaminophen 500 MG TAB 1000 MG PO ×3 (07:53→19:56)
[2018-11-04] MEDS: Docusate Sodium 100 MG CAP PO (07:54)
[2018-11-04] MEDS: Aspirin E.C. 81 MG TABEC PO ×2 (07:54→19:56)
[2018-11-04] MEDS: clonazePAM 1 MG TAB PO ×3 (07:54→19:56)
[2018-11-04] MEDS: Furosemide 20 MG TAB 60 MG PO ×2 (07:55→16:01)
[2018-11-04] MEDS: Nicotine 14 MG/24 HR PATCH TD (08:33)
[2018-11-04] MEDS: Polyethylene Glycol 3350 17 GM PACKET PO (08:34)
[2018-11-04] MEDS: Folic Acid 1 MG TAB PO (08:34)
--- NOTE | 2018-11-04 08:35 | INITIAL_ITS ---
- If Service Date Differs Date of service: 11/04/18 Time of Service: 07:32 Care Management Initial Assess REASON FOR HOSPITALIZATION:: Uncontrollable pain of left hip. PAST MEDICAL HISTORY/PAST SURGICAL HISTORY:: Anxiety, depression, diabetes, GERD, hyperlipidemia, hypertension, obesity, chronic pain, fracture proximal end left femur, avascular necrosis of left femoral head. Surgical hx: Left hip replacement (10/05/18), right hip replacement. PREVIOUS FUNCTIONAL STATUS/SOCIAL/FAMILY SUPPORTS:: Lina resides in [place], [place] with her father. 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 She recently sold her home and reportedly plans to move to [place] following her recovery from surgery. Lina is independent with her ADLs and transportation, and has OT services 1x/week for assistance with showering and PT home health services (3x/week). Lina had a total knee surgery on 10/05/[address] Tineo. She was re-admitted on 10/13 for 'failure to thrive' and is back at the hospital at this time due to uncontrollable pain. CURRENT FUNCTIONAL STATUS:: Lina is sitting in her chair when CM visits this morning. She is engaged in conversation, makes good eye contact, and is talkative. Lina has had a CT of her lower extremities and an ultrasound this morning, both of which she is awaiting results on. Yesterday she went to the OR with Dr. Tineo for aspiration. Lina is teary today and reports that she is not happy living with her father and is only able to cook in one pot (she reports she is not able to stand long enough to cook and do dishes). She reports that her father yells at her a lot, and with a new girlfriend, is out of the house often. Lina reports that she is alone much of the time and is very discouraged with the continual complications from this recent surgery. Lina reports that she had complications with her first hip surgery as well. Lina has been working with PT at [facility] and will continue to do so. Lina and CM discussed 'next steps' for discharge and what that might look like. Lina has a couple local friends but none that she can live with. She reports that she has money but all the rentals she has looked at require a year long lease, which she is not willing to sign. Lina continues to plan a move to [place] following her recovery. Lina and CM talked about SNF possibilities (as MD mentioned the idea to Lina). CM will continue to follow and assist as needed with planning. ADVANCE DIRECTIVES:: On file at [facility]. Health Care Agent; Harodlo Gates. Has patient been provided with information about the portal?: Yes Did the patient sign up for the portal?: No CODE STATUS:: Full Code INSURANCE COVERAGE / FINANCIAL ISSUES:: Blue Cross Blue [facility]. CURRENT HOME/COMMUNITY SERVICES/EQUIPMENT:: PT/OT; [facility]- 3x/week, OT 1x/week for showering assistance. FWW. PRIMARY CARE PHYSICIAN:: Ivanna Way. POTENTIAL DISCHARGE NEEDS:: Follow up appointment with surgical services, coordination of increased services support vs. SNF short term rehab. PATIENT/FAMILY EDUCATION NEEDS:: Discharge education, any limitations, and follow up plan of care. Ask Me Three discussion. ANTICIPATED BARRIERS TO DISCHARGE:: No anticipated barrier to discharge identified. TRANSPORTATION:: Lina will transport via private vehicle with her father. PLAN:: Lina will discharge home vs. SNF when ready per MD. She will follow up with her PCP and Dr. Tineo as well as her plan of care including medication recommendations and activity restrictions. She will have resumption of services for [facility] PT/OT services. CM will continue to offer support to patient and care team regarding discharge planning and disposition. Readmission - Within the Past 30 Days Yes or No: Y - Date of First Admission Date of 1st Admission: 10/13/18 - Date of this Admission Date of Admission: 11/03/18 This admission was: Through ED - Speicalist Appointments Have you seen any other specialist since your 1st Admission?: Yes Date you saw the Specialist: 11/01/2018 Specialist Seen: Surgical services; Dr. Tineo. - I. Interview patient and/or Family Difficulty reaching your doctor or getting an office appt?: No Have you had trouble purchasing/ or taking medication?: Yes Describe barriers fpr purchasing or taking medication: No barriers to purchasing medications, however patient has admittedly not been compliant with taking p rescribed meds. Have you had trouble with getting meals at home?: Yes Describe your typical meals since you have been home: One pot meals. Patient r eports that she is unable to stand at the stove and cook for long times and is unable to do dishes. Did you feel ready for discharge when you left the last time: Yes Were services received that you thought were set up on disch: Yes What services were received?: PT/OT with [facility], 1x/week OT for showering assistance. Did you call your physician beore you came to the ED?: Yes Did your physician tell you to come in?: Yes - If the patient had a VNA ordered Did the patient have a VNA order?: Yes Did you call the VNA before you came?: No (Spoke with them following admission. ) Did the VNA tell you to come to the hospital?: No Do you know if the VNA called your physician?: No
[2018-11-04] MEDS: Mometasone 220 MCG 14 DOSE INHALER 1 PUFF IH ×2 (09:15→19:57)
--- NOTE | 2018-11-04 10:02 | PT.INIE ---
Date of service: 11/04/18 Time of Service: 10:02 PT Notes Date: 11/04/2018 Referring Doctor: Diallo Tineo PT Orders: PT CONSULT: s/p L anterior NORBERTO with fracture, partial WB L LE Precautions: Partial WB L LE Patient Profile/Admitting Diagnosis: Pt is a 48yr old female s/p left anterior total hip arthroplasty with proximal femur fx intraopertively by Dr. 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 Baseline mobility 4WW or cane in home setting, FWW or 4WW in community. Independent with ADLS Equipment Owned/DME: cane, 4WW, FWW Subjective: Pt sitting at edge of bed, reports she has been walking 90% of the time at home with her 4 wheel walker and she uses walker for seat because she likes how high it is making it easier for her to sit to stand. Patient states she is having no difficulty with walking, her primary limitations are getting into and out of bed and getting up from a lower chair. Patient agreeable to PT consult. Objective: Mental Status: A& O x3 Pain: no c/o pain Bed Mobility/Transfers: Bed-transfers: deferred due to performed with OT who issued leg air conditioning engineer Sit-stand: independent with FWW Stand-sit: independent Bed to chair: Independent with FWW Gait: supervision with FWW 80 feet x2, partial weight bearing left lower extremity, steady step through gait pattern patient able to carry on conversation throughout gait session. Patient returned to room sitting in recliner chair with legs elevated. Stairs: unable due to weakness/fatigue post gait session Therex: Pt performed ankle pumps, quad sets, glute sets x 20 reps Balance: Static Sitting: normal Dynamic Sitting: normal Static Standing: fair Dynamic Standing: fair Special Tests: Mobility Limitations Standardized Measure [facility] 6 clicks Basic Mobility Inpatient Short Form: Raw Score: 18 Standardized Score: 43.63 CMS Score: 46.58% CMS Modifier: CK Informed Consent/Education: Patient instructed in purpose of PT consult and plan of care. Assessment: Pt is a 48yr old female s/p left anterior total hip arthroplasty by Dr. 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 This is patient's second re-admission post sugery. Patient is mobilizing well with standing transfers and gait with FWW, she is still having weakness and difficulty getting her legs into and out of bed, OT re-issued leg air conditioning engineer this morning and pt will need training and strengthening for bed transfers, she is also requiring stair training as she has 10 steps at home she needs to negotiate. In speaking with orthopedic MD, due to intraoperative femur fx patient should really be TDWB L LE x 6 weeks to allow healing for femur fracture, however patient is performing gait with PWB L LE and per her reports is walking quite a bit throughout the day at home which could be contributing to increased pain in left femur in home setting. Per reports, pt may also have inconsistency in taking medications at home, last hosppital admission was due to severe edema due to pt not taking her Lasix in home setting, this admission pt's pain is inadequately controlled in home setting, both edema and pain control have improved in hospital setting with oversight and management, indicating pt may require more structured environment for management of medications. Pt will benefit from skilled therapy intervention for left LE strengthening to improve bed transfers and to progress to stair training, as well as for instruction in reducing weight bearing forces on LLE and regulating gait mobility in order to allow for healing of left femur post operatively. Due to these deficits along with re-admissions due to edema in limbs and poor pain control in home setting, pt would benefit from terminal system operator care facility for 2-3 weeks of rehab prior to return to home to allow for full healing of femur fracture and strengthening in structured supervised setting. Impairments are contributing to the following functional limitations: AMPAC score CMS Score: 46.58% Patient is assessed as a low 96525 complexity based on the following: History: see above Examination: see above Presentation: evolving Decision Making: AMPAC score CMS Score: 46.58% Goals: Goals X1 week 1. Supine-Sit : independent with leg air conditioning engineer 2. Sit-Supine : independent with leg air conditioning engineer 3. Independent gait with FWW 150ft TDWB LLE 4. Up/down 10 steps with railing, SBA, TDWB LLE 5. independent with post op NORBERTO strengthening program Plan of Care/Treatment Plan: 1-2x/day, 7 days/week x 1 week. Plan of care has been reviewed with the [employer] providing the service under Physical Therapy direction. Initiate Physical Therapy intervention for strengthening, bed mobility, transfers, gait, stairs, balance training, use of assistive device. DISCHARGE RECOMMENDATIONS: remote computer terminal operator care facility for short term rehab /p left anterior total hip arthroplasty with proximal femur fx intraopertively TREATMENT CODE/TIME: 24 min IE 1003 G Codes in the area mobility of walking and moving around: current status [id number]; projected status GP [id number]. Discharge status (if discharging) GP G8980 CK based on AMPAC score CMS Score: 46.58% Jennifer Forte PT Disclaimer: This note was created using LookIt voice recognition software. It was reviewed for major content. However, there may be multiple small discrepancies and errors due to the voice recognition aspects of the software.
--- NOTE | 2018-11-04 10:19 | DI.US_ITS ---
SYMPTOM/DIAGNOSIS: LLE EDEMA, FLUID COLLECTION LEFT LEG ULTRASOUND: There is no evidence of DVT. A complex fluid collection is noted, apparently lying in the subcutaneous fat over the left hip. The possibility of a portion of this collection lying within the adjacent muscle compartment could not be excluded. The examination is otherwise unremarkable. The study was carried out in conjunction with a CT examination. Please see the separate report. Incidentally, the soft tissue abnormality is noted in the region of the surgical incision. The entire collection measures 15.3 x 3.0 x 2.2 cm Note is also incidentally made of a 2.2 x 1.5 x 0.7 cm lymph node in the left groin. These findings were conveyed to Dr. Tineo immediately following completion of the examination.
--- NOTE | 2018-11-04 10:53 | OT.INIE ---
Occupational Therapy Notes Inpatient Occupational Therapy Evaluation Date: 11/04/18 Referring Doctor:Diallo Tineo MD OT Orders: Pain and difficulty with ADLs at home. Precautions: Partial WBAT (L) LE PATIENT PROFILE/ADMITTING DIAGNOSIS: Pt is a 48 year old female who was admitted to [facility] for Pain and difficulty with ADLs at home with uncontrolled pain and failure to thrive at home. Pt was recently admitted to [facility] s/p left anterior total hip arthroplasty performed by Dr. Tineo 10/05/18. 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 Current Functional Limitations: Decreased (I) in (B) LE dressing, bathing and functional activity tolerance. Pt has increased pain in (L) hip, decreased (I) in ADL/IADL routines. Social History/Home Situation:Pt reports that she lives with father in a private house with 2 steps to enter, 10 steps with railing to living area. She reports that her home is set up with two floors the second floor containing bedroom and bathroom with walk in shower and bench. She has a raised commode toilet seat which she uses to increase her (I) in toileting routine. A home health OT assists her with bathing and/or she sponge baths everyday. Pt reports that her father performs all the cooking and grocery shopping. She was performing grocery shopping prior to surgery on 10/05/18. Pt reports that she performs her grooming including hair and teeth brushing at the sink and toilets (I) as long as she has a raised toilet seat. Her mom lives near by and assists if needed. Equipment owned/DME: cane, 4WW, FWW, shower bench, removable shower head, grab bars. SUBJECTIVE: Pt was sitting at the edge of her bed when OT arrived eating her breakfast. Pt is agreeable to OT consult. OBJECTIVE: General Observation: Pt was emotional when talking about performing her ADLs at home. She was had just taken pain medication prior to OT arriving and at end of OT session pt kept closing her eyes and reported I'm a little drugged right now and just need to rest. Mental Status: A&Ox3 Pain: c/o pain in upper thigh of (L) leg ROM: RUE AROM WNL L UE AROM WNL STRENGTH: RUE 5/5 throughout LUE 5/5 throughout FUNCTIONAL MOBILITY/ADLS: BATHING Bathing LE OT educated pt on long handled sponge as pt reported she was having difficulty washing lower legs at home. Pt denies the need for long handled sponge stating she already has one and they are too flimsy. DRESSING Dressing LE Pt educated and trained in use of adaptive equipment for LE dressing to include pants, socks, underwear and shoes. Adaptive equipment pt was trained in included sock aid, dressing stick, patent chemist. Pt demonstrated need for increased vc and min (A) with pants. Was able to perform sock aid with good technique and min vc. Pt provided adaptive equipment. EATING (I) with eating routine including opening and closing containers. BALANCE: Static sitting Normal Dynamic Sitting Normal SPECIAL TESTS: Daily Activity Limitations Standardized Measure [facility] AM -PAC ?6 clicks? Daily Activity Inpatient Short Form: Raw score: 20 Standardized score: 42.03 CMS score: 38.32% CMS modifier: CJ INFORMED CONSENT/EDUCATION: Pt instructed in purpose of OT Consult and plan of care. 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 Patient presents with clinical signs and symptoms consistent with this dx, as demonstrated by the following impairment level findings and functional limitations: Decreased (I) in (B) LE dressing, bathing and functional activity tolerance. Pt has increased pain in (L) hip, decreased (I) in ADL/IADL routines. AMPAC score 20, CMS score 38.32% Patient is assessed as a Moderate 91245 complexity based on the following: History: See above Examination: See above Presentation: Evolving Decision Making: AMPAC score 20, CMS score 38.32% GOALS Goals x1 week in hospital setting 1. Dressing (I) with LE dressing with adaptive equipment in sitting position with sock aid, dressing hook and patent chemist. 2. Bathing in sitting position with washing (B) LE pt will require only min (A) PLAN OF CARE/TREATMENT PLAN: 1x/day, 5 days/ week x 1week Initiate Occupational Therapy Services for bathing, dressing, grooming, toileting, eating, transfer training. DISCHARGE RECOMMENDATIONS Home with continued OT services that pt was receiving prior to admission Recommend a walker tray to increase pts (I) in functional ADLs TREATMENT TIME/MINUTES/CODES IE 31 min (08:30) Self Carex1 G Codes in the area of self- : washing oneself, toileting, dressing, eating and drinking, current status GO [id number] CJ projected status GO [id number]. Discharge status (if discharging) GO [id number] Jessica Nassar OTR/L
--- NOTE | 2018-11-04 11:05 | OTIE_ITS ---
Occupational Therapy Notes Inpatient Occupational Therapy Evaluation Date: 11/04/18 Referring Doctor:Diallo Tineo MD OT Orders: Pain and difficulty with ADLs at home. Precautions: Partial WBAT (L) LE PATIENT PROFILE/ADMITTING DIAGNOSIS: Pt is a 48 year old female who was admitted to [facility] for Pain and difficulty with ADLs at home with uncontrolled pain and failure to thrive at home. Pt was recently admitted to [facility] s/p left anterior total hip arthroplasty performed by Dr. Tineo 10/05/18. 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 Current Functional Limitations: Decreased (I) in (B) LE dressing, bathing and functional activity tolerance. Pt has increased pain in (L) hip, decreased (I) in ADL/IADL routines. Social History/Home Situation:Pt reports that she lives with father in a private house with 2 steps to enter, 10 steps with railing to living area. She reports that her home is set up with two floors the second floor containing bedroom and bathroom with walk in shower and bench. She has a raised commode toilet seat which she uses to increase her (I) in toileting routine. A home health OT assists her with bathing and/or she sponge baths everyday. Pt reports that her father performs all the cooking and grocery shopping. She was performing grocery shopping prior to surgery on 10/05/18. Pt reports that she performs her grooming including hair and teeth brushing at the sink and toilets (I) as long as she has a raised toilet seat. Her mom lives near by and assists if needed. Equipment owned/DME: cane, 4WW, FWW, shower bench, removable shower head, grab bars. SUBJECTIVE: Pt was sitting at the edge of her bed when OT arrived eating her breakfast. Pt is agreeable to OT consult. OBJECTIVE: General Observation: Pt was emotional when talking about performing her ADLs at home. She was had just taken pain medication prior to OT arriving and at end of OT session pt kept closing her eyes and reported I'm a little drugged right now and just need to rest. Mental Status: A&Ox3 Pain: c/o pain in upper thigh of (L) leg ROM: RUE AROM WNL L UE AROM WNL STRENGTH: RUE 5/5 throughout LUE 5/5 throughout FUNCTIONAL MOBILITY/ADLS: BATHING Bathing LE OT educated pt on long handled sponge as pt reported she was having difficulty washing lower legs at home. Pt denies the need for long handled sponge stating she already has one and they are too flimsy. DRESSING Dressing LE Pt educated and trained in use of adaptive equipment for LE dressing to include pants, socks, underwear and shoes. Adaptive equipment pt was trained in included sock aid, dressing stick, product safety test engineer. Pt demonstrated need for increased vc and min (A) with pants. Was able to perform sock aid with good technique and min vc. Pt provided adaptive equipment. EATING (I) with eating routine including opening and closing containers. BALANCE: Static sitting Normal Dynamic Sitting Normal SPECIAL TESTS: Daily Activity Limitations Standardized Measure [facility] AM -PAC ?6 clicks? Daily Activity Inpatient Short Form: Raw score: 20 Standardized score: 42.03 CMS score: 38.32% CMS modifier: CJ INFORMED CONSENT/EDUCATION: Pt instructed in purpose of OT Consult and plan of care. ASSESSMENT: Patient is a 48-year-old female referred to occupational therapy services with diagnosis of Pain and difficulty with ADLs at home in setting of Obesity, diabetes mellitus, idiopathic aseptic necrosis/bilateral avascular ne crosis hips, chronic low back pain, s/p right total hip arthroplasty 05/31, restless leg syndrome, asthma, bilateral lower extremity edema, hypertension, depression, anxiety, gastroesophageal reflux disease, tubal ligation, hysterectomy, tobacco abuse, hyperlipidemia. Patient presents with clinical signs and symptoms consistent with this dx, as demonstrated by the following impairment level findings and functional limitations: Decreased (I) in (B) LE dressing, bathing and functional activity tolerance. Pt has increased pain in (L) hip, decreased (I) in ADL/IADL routines. AMPAC score 20, CMS score 38.32% Patient is assessed as a Moderate 34569 complexity based on the following: History: See above Examination: See above Presentation: Evolving Decision Making: AMPAC score 20, CMS score 38.32% GOALS Goals x1 week in hospital setting 1. Dressing (I) with LE dressing with adaptive equipment in sitting position with sock aid, dressing hook and product safety test engineer. 2. Bathing in sitting position with washing (B) LE pt will require only min (A) PLAN OF CARE/TREATMENT PLAN: 1x/day, 5 days/ week x 1week Initiate Occupational Therapy Services for bathing, dressing, grooming, toileting, eating, transfer training. DISCHARGE RECOMMENDATIONS Home with continued OT services that pt was receiving prior to admission Recommend a walker tray to increase pts (I) in functional ADLs TREATMENT TIME/MINUTES/CODES IE 31 min (08:30) Self Carex1 G Codes in the area of self- : washing oneself, toileting, dressing, eating and drinking, current status GO [id number] CJ projected status GO [id number]. Discharge status (if discharging) GO [id number] Jessica Nassar OTR/L
--- NOTE | 2018-11-04 11:33 | PHARADMIT ---
Admission Pharmacy Clinical Review INTRACTABLE HIP (left) PAIN Code Status Full Code Current Weight Wgt-123.2 kg Renally Cleared and Narrow Therapeutic Index Meds CrCl~75 mL/min Meds-OK QTc Value / Action Taken NA BP Control, Fever BP-119/71 Tmax-37.1C Electrolytes reviewed Na-143 K+3.7 DVT Prophylaxis ASA Opiate Usage / Scheduled Bowel Regimen Ordered Yes Yes Plt/SCr for Heparin / Enoxaparin Plts-190 SCr-0.80 INR for Warfarin NA H/H stable, WBC/Bands H&H-90/30.5 WBC-6.50 Antibiotic appropriateness none Cultures and Sensitivities Synovial fluid Hip_pending Surgical ABX d/c within 24 hr na DM control / Insulin Dosing BG-99 Metformin Heart Failure (Check EF%) (SAMMIE's, B-Block, Diuretics) Clonidine, [facility]-Telmisartan,Lasix IV to PO Switch No Home Meds Reviewed Yes Home Meds Not Ordered None Comments [facility]-Fenofibrate
[2018-11-04 11:43] VITALS: BP 146/62; PULSE 88; RESP 22; TEMP 37.1; O2SAT 94
--- NOTE | 2018-11-04 12:00 | HOME_ITS ---
Home Ventilator Equipment Home care company [facility] Reason: Obstructive Sleep Apnea Make: Model: Mask type: Mask size: Mode: CPAP Settings: Auto 14-19 Oxygen bleed in (lpm): 0 Condition: Date last checked: Year of last sleep study: [facility] Most Night Comments: Unit not avail to check at time of admission
--- NOTE | 2018-11-04 14:20 | W.PM.PROGNOT ---
Date of Service Date of service: 11/04/18 Time of Service: 14:20 Assessment and Plan (1) History of total left hip replacement: Current visit: No Status: Chronic Complicated by intraoperative fracture. No sign of intra-articular infection. CT scan revealed appropriate positioning of the implant. The fracture was well reduced and had no signs of interval change. There is no sign of malrotation of the implant. There was some mild fluid collection seen above the fascia and further evaluate the ultrasound. Ultrasound showed a mixed, complex fluid collection without any sign of true drainable amount. This was directly underlying the surgical site and going towards the muscle of the TF L. There is no DVT. Significant soft tissue edema was noted. Continue aspirin 81 mg twice daily for DVT prophylaxis. (2) Fracture of proximal end of left femur: Current visit: No Status: Acute CT scan evaluation did not show any change in the fracture positioning. At this time is going to take again a total of 6 weeks minimum for early healing to occur. She should be touchdown weightbearing when she is having a very difficult time maintaining these hip precautions. She is putting all her weight on the hip and actually walking more than she probably should. I think it will be imperative that she use skilled facilities to help manage her weightbearing status and also help work with her on her appropriate gait. This would also help with her stair mobility as she is unable to go up and down the stairs. Qualifiers: Encounter type: subsequent encounter Fracture type: closed Open fracture type: Fracture healing: with routine healing Qualified Code(s): S72.002D - Fracture of unspecified part of neck of left femur, subsequent encounter for closed fracture with routine healing (3) Uncontrolled pain: Current visit: No Status: Acute She does seem to improve and her pain control when she takes the oxycodone. She is currently on the ketorolac. We will continue to administer ondansetron for nausea due to the pain medications. I would like to stands the more regularly to hopefully get hold of the pain. (4) Failure to thrive in adult: Current visit: No Status: Acute Unable to independently manage at home due to her complex medical issues and the complication of intraoperative fracture of her left femur. We will consider mcfp placement. (5) Edema: Current visit: No Status: Acute Notable edema throughout. I did increase the Lasix to 60 mg twice daily. We will continue to follow the edema in her urine output. Recheck labs tomorrow morning. Subjective Interval history since last seen: Lina reports that in general she is doing about the same. She still reports pain along the anterior thigh and into the medial aspect of the proximal left thigh. She denies any fevers or chills patient denies any shortness of breath. She has been able to ambulate with minimal assistance. She still is quite apprehensive about the idea of doing stairs or returning back home. She declined most pain medication yesterday unfortunate was in a lot of pain this morning but this is now much better after the administration of medications. She is just returning from CT scan and ultrasound for further evaluation of her left hip. Exam Narrative Exam Narrative: Evaluation of the left hip shows no overlying skin changes. There is edema noted from the groin fold all the way down to the foot. This is at least 2+ pitting edema throughout. There is no gross area of induration or fluctuance. The incision is well approximated and healed without any signs of breakage of the skin nor of any erythema. In the resting seated position she tolerates internal and external rotation without significant increase in pain. However, active hip flexion does cause pain. Objective Objective Clinical Data: Vital Signs Temperature 37.1 C 11/04/18 11:43 Temperature Source Tympanic 11/04/18 11:43 Pulse 88 11/04/18 11:43 Pulse Rhythm Regular 11/04/18 07:40 Respiratory Rate 22 11/04/18 11:43 Respiratory Effort 11/04/18 07:40 Respiratory Depth Normal 11/04/18 07:40 Respiratory Pattern Irregular 11/04/18 07:40 Blood Pressure 146/62 H 11/04/18 11:43 Pulse Oximetry 94 L 11/04/18 11:43 Oxygen Delivery Method Room Air 11/04/18 11:43 Oxygen Flow Rate 0 11/04/18 11:43 Pain Level 6 11/04/18 13:17 Comment 11/04/18 11:43 Intake & Output 11/03/18 11/04/18 11/04/18 23:59 11:59 23:59 Intake Total 740 / 740 250 / 250 Output Total 450 / 450 1225 / 1225 Balance 290 / 290 -1225 / -975 250 / -975 Weight 123.2 kg Intake: IV Oral 730 / 730 250 / 250 Output: Urine 450 / 450 1225 / 1225 Other: Urine Color Dark Ernestine Yellow Urine Appearance Clear Clear Urine Odor Strong Voiding Methods Toilet Toilet Laboratory Results WBC 6.50 k/cumm (4.4-10.8) 11/03/18 11:23 RBC 3.57 m/cumm (4.00-5.20) L 11/03/18 11:23 Hgb 9.0 g/dL (12.0-15.5) L 11/03/18 11:23 Hct 30.5 % (36.0-46.0) L 11/03/18 11:23 MCV 85.4 fL (80-95) 11/03/18 11:23 MCH 25.2 pg (27.0-33.0) L 11/03/18 11:23 MCHC 29.5 g/dL (32.0-36.0) L 11/03/18 11:23 RDW 16.8 % (11.7-14.6) H 11/03/18 11:23 Plt Count 190 x1000/uL (130-400) 11/03/18 11:23 MPV 9.8 fL (8.0-11.0) 11/03/18 11:23 Sodium 143 mmol/L (136-145) 11/03/18 11:23 Potassium 3.7 mmol/L (3.5-5.1) 11/03/18 11:23 Chloride 105 mmol/L (98-107) 11/03/18 11:23 Carbon Dioxide 29.2 mmol/L (21.0-32.0) 11/03/18 11:23 Anion Gap 8.8 mmol/L (3-11) 11/03/18 11:23 BUN 16 mg/dL (7-18) 11/03/18 11:23 Creatinine 0.80 mg/dL (0.55-1.02) 11/03/18 11:23 Estimated GFR/1.73 m2 >= 60.00 (mL/min/1.73m2) 11/03/18 11:23 Glucose 99 mg/dL (70-100) 11/03/18 11:23 Calcium 9.1 mg/dL (8.5-10.1) 11/03/18 11:23 C-Reactive Protein 1.24 mg/dL (0.0-0.3) H 11/03/18 11:23 Fluid Source L hip 11/03/18 13:00 Fluid Color Red 11/03/18 13:00 Fluid Appearance Cloudy 11/03/18 13:00 Fluid WBC 1692 /MM3 (0-0) H 11/03/18 13:00 Fluid Mononuclear Cell 21 % (0-0) H 11/03/18 13:00 Fl Polymorphonucl Cell 79 % (0-0) H 11/03/18 13:00 Path Cons Comment 11/03/18 13:00
[2018-11-04] MEDS: Normal Saline 500 ML 30 ML IVPB (15:09)
--- NOTE | 2018-11-04 15:10 | NUR.NOTE ---
Nursing Note: 11/04/18 1505 -CLAUS rabago applied by [facility]. No current order on file. EDVIN Rivers aware.
--- NOTE | 2018-11-04 15:33 | CHAPLAIN ---
Lina was sitting up in her chair when I visited. She was teary talking about the pain she has experienced and the complications from hip surgery and she explained that she has had a series of surgeries, all of which have had complications. She said that she has prayed asking God what she did to deserve this. We talked about medical complications not being anything she deserved or a form of punishment from God. I suggested to her that God's presence remains consistent, even if we are not protected from difficulties in life, as everyone experiences difficulties of one kind or another. Lina talked about her plans to move to [place]. Her aunt had homes in [place] and [place], and that's where she got the idea to move to [place]. Fanny's [facility] with his girlfriend, but Fanny said it is unlikely that they ill stop here w
--- NOTE | 2018-11-04 15:39 | PT.INTREAT ---
Date of service: 11/04/18 Time of Service: 15:40 PT Notes Inpatient Physical Therapy Treatment Note Date: 11/04/2018 PRECAUTIONS: Touchdown weightbearing left lower extremity/TDWB LLE SUBJECTIVE: Patient lying in bed states she just got back to bed agreeable [place] therapeutic exercise for strengthening of lower extremities, RN in room initiating IV. OBJECTIVE: PAIN: Complains of mild pain left hip, not rated THEREX: NORBERTO therapeutic exercise handout issued, patient instructed in lower extremity strengthening program. Patient performed ankle pumps, quad sets, glutes sets x20 reps bilaterally, active assistive long arc quad, active assisted hip abduction left lower extremity x10 reps. Patient sore after completing therapeutic exercise and left hip. Patient instructed to review entire therapeutic exercise program will continue progression is able with close supervision and instruction. Bilateral thigh-high CLAUS hose applied for edema reduction post therapeutic exercise. ASSESSMENT: Patient tired this afternoon transfers and gait mobility to deferred, initiate a strengthening program of lower extremities in supine position. Patient fatigued quickly and experiencing pain in left hip with exertion that subsides with rest indicating muscle weakness. Patient will benefit from continued strengthening of left lower extremity in order to improve her functional transfers and mobility. PLAN: Progress strengthening Progress transfer training Progress gait training TREATMENT CODE/TIME: 23 minutes TPx2 1425 Jennifer Forte PT
[2018-11-04 15:58] VITALS: BP 128/69; PULSE 74; RESP 19; TEMP 37.3; O2SAT 94
[2018-11-04 20:07] VITALS: BP 130/70; PULSE 83; RESP 19; TEMP 37.3; O2SAT 95
[2018-11-04] MEDS: metFORMIN 500 MG TAB PO (21:34)
[2018-11-04] MEDS: ARIPiprazole 15 MG TAB 30 MG PO (21:34)
[2018-11-04] MEDS: Gabapentin 300 MG CAP 1200 MG PO (21:35)
[2018-11-04] MEDS: Omeprazole 20 MG CAPCR PO (21:35)
[2018-11-04] MEDS: Atorvastatin 40 MG TAB PO (21:35)
[2018-11-04] MEDS: Gabapentin 300 MG CAP PO (23:33)
[2018-11-04 23:54] VITALS: BP 163/71; PULSE 74; RESP 20; TEMP 37.2; O2SAT 95
[2018-11-05] MEDS: Normal Saline Flush 10 ML SYR IVP ×2 (03:32→07:54)
[2018-11-05] MEDS: Ketorolac 15 MG/ML VIAL IVP (03:32)
[2018-11-05 04:51] VITALS: BP 141/81; PULSE 77; RESP 16; TEMP 36.8; O2SAT 94
[2018-11-05 06:54] LABS: HCT 31.8 % (36.0-46.0); HGB 9.5 g/dL (12.0-15.5); Mean Corp. HGB Concentration 29.9 g/dL (32.0-36.0); Mean Corpuscular Hemoglobin 25.1 pg (27.0-33.0); Mean Corpuscular Volume 83.9 fL (80-95); Mean Platelet Volume 10.2 fL (8.0-11.0); Platelet Count 214 x1000/uL (130-400); RBC 3.79 m/cumm (4.00-5.20); RBC Distribution Width 16.8 % (11.7-14.6); White Blood Cell Count 6.37 k/cumm (4.4-10.8)
[2018-11-05 07:08] LABS: ALT 16 U/L (12-78); AST 13 U/L (15-37); Albumin 3.8 g/dL (3.4-5.0); Alkaline Phosphatase 94 U/L (46-116); Anion Gap 10.1 mmol/L (3-11); BUN 30 mg/dL (7-18); Bilirubin, Total 0.5 mg/dL (0.2-1.0); CO2 27.9 mmol/L (21.0-32.0); CREATININE 1.11 mg/dL (0.55-1.02); Calcium 9.4 mg/dL (8.5-10.1); Chloride 105 mmol/L (98-107); Estimated GFR 52.69 (mL/min/1.73m2); Glucose 110 mg/dL (70-100); Potassium 4.1 mmol/L (3.5-5.1); Sodium 143 mmol/L (136-145); Total Protein 7.3 g/dL (6.4-8.2)
[2018-11-05 07:28] LABS: C-Reactive Protein 1.01 mg/dL (0.0-0.3)
[2018-11-05] MEDS: Nicotine 14 MG/24 HR PATCH TD (07:54)
[2018-11-05] MEDS: Acetaminophen 500 MG TAB 1000 MG PO (07:55)
[2018-11-05] MEDS: Folic Acid 1 MG TAB PO (07:55)
[2018-11-05] MEDS: clonazePAM 1 MG TAB PO (07:55)
[2018-11-05] MEDS: Aspirin E.C. 81 MG TABEC PO (07:55)
[2018-11-05] MEDS: Furosemide 20 MG TAB 60 MG PO (07:55)
[2018-11-05 08:00] VITALS: BP 144/76; PULSE 72; RESP 20; TEMP 36.7; O2SAT 95
--- NOTE | 2018-11-05 08:44 | DSE_ITS ---
Date of service: 11/05/18 Time of Service: 10:47 DS: Diagnosis Discharge Diagnosis (1) Uncontrolled pain: Status: Acute (2) History of total left hip replacement: Status: Chronic (3) Fracture of proximal end of left femur: Status: Acute (4) Failure to thrive in adult: Status: Acute (5) Edema: Status: Acute Discharge Plan Disposition Patient Disposition: HOME W/HOME HEALTH SERVICE Condition: Improving Discharge Details Reason For Visit: UNCONTROLLABLE PAIN OF LEFT HIP Admit Date/Time: 11/03/18 10:50 Admit Provider: Diallo Tineo Attending Provider: Diallo Tineo Primary Care Provider: Ivanna Way Hospital Course Hospital Course: Fanny was admitted directly to the hospital on 11/03/2018. She was having uncontrolled pain at home and unable to thrive at her home due to stairs and pain with ambulation. She was also unable to maintain her weightbearing precautions and was thus admitted to the hospital. She was started on a regimen of medications both narcotic and nonnarcotic to help out with pain. She seem to make improvements with her pain control with those options. In order to rule ou possibly modifiable causes of pain, an aspiration of the left hip was performed. This fluid appeared benign with 1600 cells, 79% PMNs. No microscopic growth. A CT scan was also performed which showed appropriate positioning of the hip implants and no change in the fracture orientation or signs to suggest malrotation of the implant or subsidence or movement of the fracture proximal femur. An additional ultrasound was also performed without sign of blood clot but only a mixed, complex fluid collection deep to the surgical incision site. This was most likely considered to be resolving hematoma. Given the significant amount of edema in the pain over this area and antibiotic was started in case there is an early cellulitic pattern to it. The C-reactive protein was down to 1 by hospital day #3. She was able to ambulate with some assistance in the hospital. She still struggled to maintain her weightbearing precautions and perform stairs without significant increase in pain. She also had significant amount of edema which was challenging to manage and required nursing intervention for positioning. She made improvements but I was concerned about her ability to thrive at home and maintain precuations. We were unable to place her into any half-way facility and she desired to try going back home with HHS. Home Meds and New Rx's Prescriptions: New celecoxib 100 mg capsule 100 mg PO BID Qty: 60 RF: 0 oxycodone 10 mg tablet 10 mg PO Q6H PRN (Reason: pain) Qty: 20 RF: 0 cephalexin 500 mg capsule 500 mg PO TID Qty: 15 RF: 0 ondansetron 4 mg tablet,disintegrating 4 mg PO Q6H PRN PRN (Reason: nausea and vomiting) Qty: 20 RF: 3 Continued docusate sodium [Colace] 100 mg capsule 100 mg PO BID PRN PRN (Reason: Constipation) Qty: 10 RF: 0 celecoxib 200 mg capsule 200 mg PO BID PRN (Reason: pain) Qty: 60 RF: 1 hydromorphone 2 mg tablet 2 - 4 mg PO Q4H MDD 16mg PRN (Reason: pain) Qty: 24 RF: 0 cyclobenzaprine 5 mg tablet 5 mg PO TID PRN (Reason: muscle spasm/pain) Qty: 10 RF: 0 clonidine HCl 0.1 MG tablet 0.1 mg PO DAILY PRNRF: 0 fluticasone [Flonase Allergy Relief] 9.9 ML spray,suspension 9.9 ml NS DAILY PRNRF: 0 clonazepam 1 MG tablet 1 mg PO TID RF: 0 telmisartan [Micardis] 40 MG tablet 40 mg PO HS RF: 0 gabapentin 300 MG capsule 4 cap PO HS RF: 0 albuterol sulfate 8.5 GM HFA aerosol inhaler 2 puff Inhalation DAILY PRNRF: 0 aripiprazole [Abilify] 30 MG tablet 30 mg PO HS RF: 0 omeprazole 20 MG capsule,delayed release(DR/EC) 20 mg PO HS RF: 0 baclofen 10 MG tablet 10 mg PO PRN PRNRF: 0 nystatin 15 GM cream 1 applic Topical BID PRN PRNRF: 0 fenofibrate 160 MG tablet 160 mg PO HS RF: 0 Flovent HFA 120 PUFF/INH HFA aerosol inhaler 2 puff Inhalation BID RF: 0 metformin 500 MG tablet extended release 24hr 500 mg PO HS RF: 0 nitroglycerin 0.4 MG tablet, sublingual 0.4 mg Sublingual Q5 MIN PRN X3 PRNQty: 1 RF: 0 atorvastatin 40 MG tablet 40 mg PO HS Qty: 30 RF: 0 aspirin 81 mg Tablet,Delayed Release (Dr/Ec) 81 mg PO BID Qty: 80 RF: 0 acetaminophen [Tylenol Arthritis Pain] 650 MG tablet extended release 1,300 mg PO TID PRNQty: 90 RF: 3 furosemide 40 mg Tablet 40 mg PO BID@0830,1600 Qty: 20 RF: 0 polyethylene glycol 3350 17 gram Powder In Packet 17 g PO BID PRN PRNQty: 0 RF: 0 Discharge Instructions Additional Instructions: Activity: Partial weight-bearing to the left leg, using a walker at all times. You should spend as much time as possible, when not ambulating, to keep the legs elevated to help with fluid management, edema control. Medications: You should continue to take Tylenol every 8 hours and the Celebrex every 8 hours. If the celebrex is not covered you may take Aleve, one pill twice a day. You should continue to take Lasix 40mg twice a day. Aspirin 81 mg twice a day for blood clot prevention. Follow-up: 7-14 days 1. Encounter Date and Reason I certify that LINA LAW was seen by Diallo Tineo MD on 11/05/18 and that I had a [id number] encounter with this patient that meets the physician face to face encounter requirements. 2. Clinical Findings Supporting Skilled Need and Homebound Status I certify that home health services are medically necessary, include either intermittent half-way and/or physical/speech therapy, and that this patient is homebound in that absences from the home require considerable and taxing effort and are infrequent or of short duration, or are attributable to the need to receive medical care. [X] (a) Attached documentation from encounter provides clinical findings suppor ting skilled need and homebound status (including what assistance patient requires to leave the home). The encounter with the patient was in whole, or in part, for the following medical condition, which is the primary reason for home health care: UNCONTROLLABLE PAIN OF LEFT HIP Custodial: Physical Therapy: Lina would benefit from continued home occupational therapy as well as physical therapy for her left hip and overall deconditioned state. She has significant weakness of the left leg s/p left hip replacement. She suffered an intraoperative fracture of the left femur and is thus protected (<50%) weight bearing to the left leg, using a walker at all times. PT should focus on gait training and improvements with these restrictions as well as m obility around the house and ADLs. Gentle range of motion and strengthening may also be continued. OT may help with ADLs and personal care. Speech Therapy: Homebound: Lina is unable to leave her home unassisted. She has significant weakness, limitations physically, and gait alterations which limit her ability to leave her home. 3. Certification and Authentication I certify that I composed the above information based on my clinical judgement relating to this patient's medical condition and, if applicable, clinical findings communicated to me by the NPP or inpatient physician who performed the Home Health Referral. All further orders will be obtained through Dr. Tineo Stand Alone Forms: Nursing Discharge Form Referrals: Diallo Tineo MD [ [facility] STAFF PHYSICIAN] - Activity:: Activity as Tolerated Equipment/Supplies:: Walker Diet:: As Tolerated Discharge Orders Discharge Orders: Discharge Order (Routine); Ordered 11/05/18 Ordered By: Diallo Tineo DS: Data Vitals/I&O Vitals and I&O: Vital Signs Temperature 36.8 C 11/05/18 04:51 Temperature Source Tympanic 11/05/18 04:51 Pulse 77 11/05/18 04:51 Pulse Rhythm Regular 11/04/18 16:05 Respiratory Rate 16 11/05/18 04:51 Respiratory Effort 11/04/18 16:05 Respiratory Depth Normal 11/04/18 16:05 Respiratory Pattern Irregular 11/04/18 16:05 Blood Pressure 141/81 H 11/05/18 04:51 Pulse Oximetry 94 L 11/05/18 04:51 Oxygen Delivery Method Room Air 11/05/18 04:51 Oxygen Flow Rate 0 11/05/18 04:51 Pain Level 2 11/05/18 07:55 Comment 11/04/18 11:43 Intake & Output 11/04/18 11/04/18 11/05/18 11:59 23:59 11:59 Intake Total 531.833 / 531.833 100 / 100 Output Total 1225 / 1225 450 / 450 Balance -1225 / -693.167 531.833 / -693.167 -350 / -350 Intake: IV 281.833 / 281.833 100 / 100 Oral 250 / 250 Output: Urine 1225 / 1225 450 / 450 Other: Urine Color Yellow Yellow Urine Appearance Clear Clear Urine Odor Normal Comment voiding into toilet indep Voiding Methods Toilet Toilet Labs on day of discharge: Labs from last 24 hours 11/05/18 11/05/18 11/05/18 06:30 06:30 06:30 WBC 6.37 RBC 3.79 L Hgb 9.5 L Hct 31.8 L MCV 83.9 MCH 25.1 L MCHC 29.9 L RDW 16.8 H Plt Count 214 MPV 10.2 Sodium 143 Potassium 4.1 Chloride 105 Carbon Dioxide 27.9 Anion Gap 10.1 BUN 30 H D Creatinine 1.11 H Estimated GFR/1.73 m2 52.69 Glucose 110 H Calcium 9.4 Total Bilirubin 0.5 AST 13 L ALT 16 Alkaline Phosphatase 94 C-Reactive Protein 1.01 H Total Protein 7.3 Albumin 3.8 Path Cons Comment 11/03/18 13:00 WBC RBC Hgb Hct MCV MCH MCHC RDW Plt Count MPV Sodium Potassium Chloride Carbon Dioxide Anion Gap BUN Creatinine Estimated GFR/1.73 m2 Glucose Calcium Total Bilirubin AST ALT Alkaline Phosphatase C-Reactive Protein Total Protein Albumin Path Cons Comment Preliminary micro results at discharge 11/03/18 13:00 Body Fluid Culture - Preliminary Synovial - Left Hip [facility] Medical History Anxiety and depression (Acute) Hyperlipidemia (Acute) Chronic pain (Chronic) Diabetes (Chronic) GERD (gastroesophageal reflux disease) (Chronic) Hypertension (Chronic) Obesity (Chronic) Spasm (Chronic) Surgical History Status post left hip replacement (Acute) Status post right hip replacement (Chronic) Social History caregiver/support person: Yes (Father) household members: family lives independently: Yes Smoking/Tobacco Use Status: Current every day
[2018-11-05] MEDS: Mometasone 220 MCG 14 DOSE INHALER 1 PUFF IH (09:13)
--- NOTE | 2018-11-05 09:17 | OT.INTREAT ---
Date of service: 11/05/18 Time of Service: 08:40 Occupational Therapy Notes Occupational Therapy Inpatient Treatment Note Date: 11/05/18 PRECAUTIONS: Partial/tow touch WBAT (L) LE SUBJECTIVE: Pt was sitting on side of the bed when OT arrived. She is agreeable to OT session. She reports that she did not sleep well and is tired. OBJECTIVE: PAIN:c/o pain (L) hip when standing from toilet. FUNCTIONAL MOBILITY Sit-stand: (I) FWW Stand-sit: (I) FWW Bed-Chair: (I) FWW Chair-bed: (I) FWW BATHING: Upper Body: Standing at sink with FWW able to wash upper body (I) with decreased adherence to WB status for (L) LE. Min vc for functional dynamic standing at sink with adherence to these precautions. Lower Body: Standing at sink with FWW able to wash abdomen and pelvic area (I) with decreased adherence to WB status for (L) LE. Min vc for functional dynamic standing at sink with adherence to these precautions. Pt does not wash lower legs or feet during OT session. DRESSING: Increased functional activity time as pt presents with decreased functional activity tolerance. Pt required multiple rest breaks to perform dressing in sitting position. Upper Extremity: (I) [facility] gowns/ [facility] personal long sleeved shirt in the sitting position. Lower Extremity: Able to (I) don socks with sock aid, min (A) pants in the sitting position, (I) underwear for donning and doffing. Pt denies CLAUS stocking reporting that she had restless leg syndrome last night and feels that this is contributed to the problem. Increased edema makes it difficult for pt to dress her LE (I). TOILETING: Device: Toilet Assist: (I) EATING: (I) with open and closing containers/ bringing food to mouth. ASSESSMENT: Pt was able to demonstrate increased (I) in ADLs during todays OT session. She requires vc for WB status of (L) LE with FWW during ADLs at this time. Dressing routine required multiple rest breaks due to decreased functional activity tolerance. Pt reports that plan is for her to discharge to [facility] facility. OT recommends that pt return to SNF for increased (I) with functional activity tolerance for ADL routine as pt is able to demonstrate an increase in ADL but requires increased time and multiple rest period to do so at this time. PLAN: OT recommends that pt return home with home health OT vs. SNF for increased functional activity tolerance for ADLs/IADLs. TREATMENT CODES/TIME: Self carex2, 30 minutes Jessica Nassar, OTR/L
--- NOTE | 2018-11-05 09:30 | OTTR_ITS ---
Date of service: 11/05/18 Time of Service: 08:40 Occupational Therapy Notes Occupational Therapy Inpatient Treatment Note Date: 11/05/18 PRECAUTIONS: Partial/tow touch WBAT (L) LE SUBJECTIVE: Pt was sitting on side of the bed when OT arrived. She is agreeable to OT session. She reports that she did not sleep well and is tired. OBJECTIVE: PAIN:c/o pain (L) hip when standing from toilet. FUNCTIONAL MOBILITY Sit-stand: (I) FWW Stand-sit: (I) FWW Bed-Chair: (I) FWW Chair-bed: (I) FWW BATHING: Upper Body: Standing at sink with FWW able to wash upper body (I) with decreased adherence to WB status for (L) LE. Min vc for functional dynamic standing at sink with adherence to these precautions. Lower Body: Standing at sink with FWW able to wash abdomen and pelvic area (I) with decreased adherence to WB status for (L) LE. Min vc for functional dynamic standing at sink with adherence to these precautions. Pt does not wash lower legs or feet during OT session. DRESSING: Increased functional activity time as pt presents with decreased functional activity tolerance. Pt required multiple rest breaks to perform dressing in sitting position. Upper Extremity: (I) [facility] gowns/ [facility] personal long sleeved shirt in the sitting position. Lower Extremity: Able to (I) don socks with sock aid, min (A) pants in the sitt ing position, (I) underwear for donning and doffing. Pt denies CLAUS stocking reporting that she had restless leg syndrome last night and feels that this is contributed to the problem. Increased edema makes it difficult for pt to dress her LE (I). TOILETING: Device: Toilet Assist: (I) EATING: (I) with open and closing containers/ bringing food to mouth. ASSESSMENT: Pt was able to demonstrate increased (I) in ADLs during todays OT session. She requires vc for WB status of (L) LE with FWW during ADLs at this time. Dressing routine required multiple rest breaks due to decreased functional activity tolerance. Pt reports that plan is for her to [facility] to [facility]. OT recommends that pt return to SNF for increased (I) with functional activity tolerance for ADL routine as pt is able to demonstrate an increase in ADL but requires increased time and multiple rest period to do so at this time. PLAN: OT recommends that pt return home with home health OT vs. SNF for increased functional activity tolerance for ADLs/IADLs. TREATMENT CODES/TIME: Self carex2, 30 minutes Jessica Nassar, OTR/L
[2018-11-05] MEDS: Celecoxib 100 MG CAP PO (10:15)
--- NOTE | 2018-11-05 11:30 | PT.INDS ---
Date of service: 11/05/18 Time of Service: 11:30 PT Notes Inpatient Physical Therapy Discharge Summary Dates: 11/05/18 Dates of Service: 11/04/18-11/05/18 SUBJECTIVE: Pt sitting on edge of bed dressed in her clothes, agreeable to PT session. OBJECTIVE: Pain: c/o pain left hip not rated, using ice pack on left hip and groin Bed Mobility/Transfers: Bed- transfers: pt deferred at this time Sit-stand: independent with FWW Stand-sit: independent Bed-chair: independent with FWW Chair-bed: independent with FWW Gait: supervision with FWW 50 feet x2, TDWB L LE. Pt instructed in TDWB precautions that MD would like her to maintain until 6 weeks post op (11/16/17). Pt instructed in utilization of upper body on FWW to unload L LE and instructed to decrease gait marnie and speed to maintain TDWB L LE. Pt was able to modify gait sequence and follow instruction. Pt would benefit from continued instruction in TDWB status to reduce left leg and hip pain with mobility. Therex: Pt performed ankle [id number] reps, long arc quads, hip flexion x10 reps seated at bedside. Pt has issued handout with sitting and supine LE strengthening program, pt instructed in therapeutic exercise and instructed to follow directions on handout for progression of therex program. Pt verbalized understanding. Balance: Static Sitting: normal Dynamic Sitting: normal Static Standing: fair Dynamic Standing: fair Assessment: Pt is a 48yr old female s/p left anterior total hip arthroplasty by Dr. 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 This is patient's second re-admission post sugery. Patient has been seen for 3 therapy sessions this admission. Pt has been instructed in transfers and gait mobility with FWW with TDWB status left LE until 11/16/17. Pt continues to have weakness and pain in left hip/ LE with exertion, she would benefit from continued strengthening and instruction in strengthening program, bed transfers and gait training and stair training. Pt may be transferring to [facility] care facility today for continued rehab or she may be discharging to home setting, ( see care management notes for details). If home is the plan, recommend home PT follow up for strengthening, transfer and gait training to improve mobility and maintain TDWB precautions. Goals: Goals X1 week 1. Supine-Sit : independent with leg stockroom keeper 2. Sit-Supine : independent with leg stockroom keeper 3. Independent gait with FWW 150ft TDWB LLE 4. Up/down 10 steps with railing, SBA, TDWB LLE 5. independent with post op NORBERTO strengthening program Pt did not meet therapy goals, recommend SNF transfer or home PT follow up DISCHARGE RECOMMENDATIONS: [facility] care facility for short term rehab vs. home with home PT TREATMENT CODE/TIME: 23 min TAx1 TPx1 1125 G Codes in the area mobility of walking and moving around: projected status GP [id number]. Discharge status (if discharging) GP [id number] CK Jennifer Forte PT
--- NOTE | 2018-11-05 11:43 | INDS_ITS ---
Date of service: 11/05/18 Time of Service: 11:30 PT Notes Inpatient Physical Therapy Discharge Summary Dates: 11/05/18 Dates of Service: 11/04/18-11/05/18 SUBJECTIVE: Pt sitting on edge of bed dressed in her clothes, agreeable to PT session. OBJECTIVE: Pain: c/o pain left hip not rated, using ice pack on left hip and groin Bed Mobility/Transfers: Bed- transfers: pt deferred at this time Sit-stand: independent with FWW Stand-sit: independent Bed-chair: independent with FWW Chair-bed: independent with FWW Gait: supervision with FWW 50 feet x2, TDWB L LE. Pt instructed in TDWB precautions that MD would like her to maintain until 6 weeks post op (11/16/17). Pt instructed in utilization of upper body on FWW to unload L LE and instructed to decrease gait marnie and speed to maintain TDWB L LE. Pt was able to modify gait sequence and follow instruction. Pt would benefit from continued instruction in TDWB status to reduce left leg and hip pain with mobility. Therex: Pt performed ankle [id number] reps, long arc quads, hip flexion x10 reps seated at bedside. Pt has issued handout with sitting and supine LE strengthening program, pt instructed in therapeutic exercise and instructed to follow directions on handout for progression of therex program. Pt verbalized understanding. Balance: Static Sitting: normal Dynamic Sitting: normal Static Standing: fair Dynamic Standing: fair Assessment: Pt is a 48yr old female s/p left anterior total hip arthroplasty by Dr. 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 This is patient's second re-admission post sugery. Patient has been seen for 3 therapy sessions this admission. Pt has been instructed in transfers and gait mobility with FWW with TDWB status left LE until 11/16/17. Pt continues to have weakness and pain in left hip/ LE with exertion, she would benefit from continued strengthening and instruction in strengthening program, bed transfers and gait training and stair training. Pt may be transferring to snf care facility today for continued rehab or she may be discharging to home setting, ( see care management notes for details). If home is the plan, recommend home PT follow up for strengthening, transfer and gait training to improve mobility and maintain TDWB precautions. Goals: Goals X1 week 1. Supine-Sit : independent with leg communications department chair 2. Sit-Supine : independent with leg communications department chair 3. Independent gait with FWW 150ft TDWB LLE 4. Up/down 10 steps with railing, SBA, TDWB LLE 5. independent with post op NORBERTO strengthening program Pt did not meet therapy goals, recommend SNF transfer or home PT follow up DISCHARGE RECOMMENDATIONS: [facility] for [facility] term rehab vs. home with home PT TREATMENT CODE/TIME: 23 min TAx1 TPx1 1125 G Codes in the area mobility of walking and moving around: projected status GP [id number]. Discharge status (if discharging) GP [id number] CK Jennifer Forte PT
--- NOTE | 2018-11-05 13:57 | PDOC.CMDIS ---
LACE Index Scoring Tool - Questions: Length of Stay (in days): 3 Acuity (Admit via E.D.?): Yes E.D. Visits: 7 - Answers: Total Score: 10 Risk of Readmission: High Risk Care Management Discharge Reason for Hospitalization: Uncontrollable pain of left hip. Discharge Plan: Lina will return home when ready per MD. She was provided contact information for Rusty Trejo; irb compliance coordinator for [facility] (willing to accept Lina with $1600 rehab deductible for / insurance) P#[phone] in the event she decides to admit to [facility] for Rehab. She reported wanting to be home for [place] and discharged home with resumption of services (CM faxed referral to [facility]) and transported via private vehicle with family. Patient/Family Education Needs: Review discharge instructions, follow up plan of care. Services Needed at Discharge: Home Health Care Services (Resumption)
--- NOTE | 2018-11-05 16:34 | CMDISCH_ITS ---
LACE Index Scoring Tool - Questions: Length of Stay (in days): 3 Acuity (Admit via E.D.?): Yes E.D. Visits: 7 - Answers: Total Score: 10 Risk of Readmission: High Risk Care Management Discharge Reason for Hospitalization: Uncontrollable pain of left hip. Discharge Plan: Lina will return home when ready per MD. She was provided contact information for Rusty Trejo; city wellness coordinator for [facility] (willing to accept Lina with $1600 rehab deductible for / insurance) P#[phone] in the event she decides to admit to [facility] for Rehab. She reported wanting to be home for [place] and discharged home with resumption of services (CM faxed referral to [facility]) and transported via private vehicle with family. Patient/Family Education Needs: Review discharge instructions, follow up plan of care. Services Needed at Discharge: Home Health Care Services (Resumption)
--- NOTE | 2018-11-08 08:16 | OTDS_ITS ---
Date of service: 11/08/18 Time of Service: 08:16 Occupational Therapy Notes Occupational Therapy Inpatient Discharge Summary Date: 11/08/18 for 11/05/18 Dates of Service: 11/04/18-11/05/18 PRECAUTIONS: Partial WBAT (L) LE SUBJECTIVE: NT OBJECTIVE: Dates of Service: 11/04/18-11/05/18 FUNCTIONAL MOBILITY/ADLS: Sit-stand: (I), FWW Stand-sit: (I), FWW Bed-Chair: (I), FWW Chair-bed: (I), FWW BATHING Upper Body: Standing at sink, (I) washing face, UE DRESSING Upper body: Sitting in chair, (I) donning and doffing shirt Lower Body: Min (A) pants, (I) underwear GROOMING: (I) brushing teeth at sink TOILETING: Assist: (I) Device: toilet EATING: (I) ASSESSMENT: Patient is a 48-year-old female referred to occupational therapy services with diagnosis of Pain and difficulty with ADLs at home in setting of Obesity, diabetes mellitus, 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 Pt was seen for 2 OT sessions and demonstrated increased (I) in ADL routines. Pt was discharged home with referral to LTC for short term duration. OT recommends that pt return home with home OT which pt had received prior. GOALS 1. Dressing (I) with LE dressing with adaptive equipment in sitting position with sock aid, dressing hook and textiles and clothing teacher. 2. Bathing in sitting position with washing (B) LE pt will require only min (A) Pt met goal 1. PLAN: Pt was discharged home when medically cleared on 11/05/18. OT recommends continued home OT which pt was receiving previously. OT recommends LTC for short term rehab vs. home with home OT. TREATMENT CODES/TIME: G Codes in the area of self- : washing oneself, toileting, dressing, eating and drinking, current status GO [id number] CJ projected status GO [id number]. Discharge status (if discharging) GO [id number] Jessica Nassar OTR/L
== END 2018-11-05 13:40 | disposition home health service (06) ==
PROVIDERS: Admitting Provider Student in an Organized Health Care Education/Training Program; PCP Nurse Practitioner Family; Visit Provider Student in an Organized Health Care Education/Training Program
DX: G89.18 Other acute postprocedural pain (principal); M25.552 Pain in left hip; R60.0 Localized edema; Z96.642 Presence of left artificial hip joint; M96.662 Fracture of femur following insertion of orthopedic implant, joint prosthesis, or bone plate, left leg; I10 Essential (primary) hypertension; E11.22 Type 2 diabetes mellitus with diabetic chronic kidney disease; K21.9 Gastro-esophageal reflux disease without esophagitis; G47.33 Obstructive sleep apnea (adult) (pediatric); F17.210 Nicotine dependence, cigarettes, uncomplicated
CPT/HCPCS: 20610; 36415; 77002; 80048; 80053; 85027; 94640; 97110; 97161; 97166; 97530; 97535; 99223; 99232; 99238; 73700; 86140; 87070; 87205; 89051; 93971; G0378; J1885

== ENCOUNTER 2018-11-22 13:25 | Outpatient (CLI) | payer BC, SELFPAY ==
--- NOTE | 2018-11-22 13:13 | DI.RAD_ITS ---
SYMPTOMS/DIAGNOSIS: LT NORBERTO WITH FEMUR FX LEFT HIP: Comparison 10/18/18. There has been no change in alignment of the fracture involving the proximal metaphysis of the left femur. There is a left total hip replacement which appears in good position. The proximal orthopedic wires are stable. No new fractures or dislocations are present. Note is made of a right total hip replacement. The soft tissues are unremarkable. IMPRESSION: Stable left hip.
== END 2018-11-22 13:45 ==
PROVIDERS: PCP Nurse Practitioner Family; Visit Provider Physician Assistant
DX: S72.002D Fracture of unspecified part of neck of left femur, subsequent encounter for closed fracture with routine healing (principal); Z96.643 Presence of artificial hip joint, bilateral
CPT/HCPCS: 73502

== ENCOUNTER 2018-12-08 13:59 | Outpatient (CLI) | payer BC, SELFPAY ==
--- NOTE | 2018-12-08 13:29 | DI.RAD_ITS ---
SYMPTOM/DIAGNOSIS: F/U LT HIP FX, LT MEDIAL KNEE PAIN LEFT HIP: The patient is status post left hip THR. The prosthesis is in excellent position. Cerclage wires are in place. Surrounding bone well maintained with no evident interval change when compared with the prior study of 11/22/18. LEFT KNEE; There are minimal degenerative changes involving the left knee with perhaps subtle narrowing of the medial joint compartment. There is no fracture or dislocation. There is no joint effusion. SUMMARY: Very minimal DJD is demonstrated.
== END 2018-12-08 14:19 ==
PROVIDERS: PCP Nurse Practitioner Family; Visit Provider Student in an Organized Health Care Education/Training Program
DX: S72.002D Fracture of unspecified part of neck of left femur, subsequent encounter for closed fracture with routine healing (principal); Z96.642 Presence of left artificial hip joint; M25.562 Pain in left knee; M17.12 Unilateral primary osteoarthritis, left knee
CPT/HCPCS: 73502; 73560

== ENCOUNTER 2018-12-14 09:36 | Outpatient (REF) | payer BC, SELFPAY ==
[2018-12-15 10:24] LABS: Abs Immature Grans 0.03 k/cumm (0.0-0.09); Absolute Basophil Count 0.02 k/cumm (0.0-0.2); Absolute Eosinophil Count 0.17 k/cumm (0.0-0.7); Absolute Monocyte Count 0.47 k/cumm (0.11-0.7); Basophils % 0.3; Eosinophils % 2.3; HCT 35.2 % (36.0-46.0); HGB 10.4 g/dL (12.0-15.5); Immature Grans % 0.4; Lymphocytes % 30.7; Mean Corp. HGB Concentration 29.5 g/dL (32.0-36.0); Mean Corpuscular Hemoglobin 23.3 pg (27.0-33.0); Mean Corpuscular Volume 78.9 fL (80-95); Mean Platelet Volume 10.7 fL (8.0-11.0); Monocytes % 6.3; Platelet Count 275 x1000/uL (130-400); RBC 4.46 m/cumm (4.00-5.20); RBC Distribution Width 17.4 % (11.7-14.6); White Blood Cell Count 7.49 k/cumm (4.4-10.8)
[2018-12-15 11:04] LABS: ALT 13 U/L (12-78); AST 14 U/L (15-37); Alkaline Phosphatase 95 U/L (46-116); Anion Gap 11.5 mmol/L (3-11); BUN 18 mg/dL (7-18); Bilirubin, Total 0.3 mg/dL (0.2-1.0); CO2 25.5 mmol/L (21.0-32.0); CREATININE 0.84 mg/dL (0.55-1.02); Calcium 9.1 mg/dL (8.5-10.1); Chloride 105 mmol/L (98-107); Glucose 138 mg/dL (70-100); Magnesium 1.8 mg/dL (1.8-2.4); Sodium 142 mmol/L (136-145); Total Protein 7.5 g/dL (6.4-8.2)
[2018-12-15 17:15] LABS: Iron 29 ug/dL (50-175); Total Iron Binding Capacity 475 ug/dL (250-450); Transferrin Sat 6 % (15-50)
[2018-12-15 18:50] LABS: Ferritin 13 ng/mL (8-388)
== END 2018-12-14 09:56 ==
LOC: LBN 09:36
PROVIDERS: PCP Nurse Practitioner Family; Visit Provider Nurse Practitioner Family
DX: R25.2 Cramp and spasm (principal); G25.81 Restless legs syndrome
CPT/HCPCS: 80053; 82728; 83540; 83550; 83735; 85025